=== PATIENT | female | born 1985 | race Caucasian/White ===

== ENCOUNTER 2017-05-10 18:44 | Inpatient (IN) | payer BC, OTHER ==
[~2017-05-10] VITALS: Ht 170.2 cm; Wt 94.2 kg
[~2017-05-10 18:44] MED LIST: MoRPHine SULFATE 4 MG/ML 1 ML CARP\\VIAL IV PRN; TRAMADOL HCL 50 MG TAB PO PRN
[2017-05-10 19:41] LABS: BASO % 0.3 %; BASO ABS # 0.06 K/uL (0-0.2); COMPLETE YES; EOS % 0.2 %; HEMATOCRIT 42.9 % (37-47); IG% 0.4 %; LYMPH % 20.2 %; LYMPH ABS # 4.59 K/uL (1.2-3.4); MEAN CELL VOLUME 87.9 fL (80-100); MEAN CORPUSCULAR HEMOGLOBIN 29.9 pg (25-34); NEUT % 73.9 %; PLATELET COUNT 492 K/uL (130-400); RED BLOOD COUNT 4.88 M/uL (4.2-5.4); WHITE BLOOD COUNT 22.67 K/uL (4.8-10.8)
[2017-05-10] MEDS ORDERED: IBUP-103 PO (19:42)
[2017-05-10] MEDS ORDERED: SODIENE PR (19:42)
[2017-05-10 19:45] LABS: URINE APPEARANCE CLEAR (CLEAR); URINE BILIRUBIN NEG (NEG); URINE COLOR YELLOW; URINE EPITHELIAL CELL AUTO >30 /lpf (0-5); URINE NITRITE NEG (NEG); URINE PH 6.5 (4.5-7.5); URINE SPECIFIC GRAVITY 1.017 (1.000-1.030); UROBILINOGEN NEG (NEG); ZZUR CULT IF INDIC CLEAN CATCH NO
[2017-05-10 19:47] LABS: MANUAL MICROSCOPIC REQUIRED? NO; REVIEW REQ? NO
[2017-05-10 19:55] LABS: BUN/CREATININE RATIO 13.5 (10-20); CALCIUM 9.5 mg/dl (8.5-10.1); CREATININE 0.86 mg/dl (0.60-1.20); POTASSIUM 3.8 mmol/L (3.5-5.1)
[2017-05-10 19:57] LABS: ALB/GLOB RATIO 1.1 (0.9-2)
[2017-05-10] MEDS ORDERED: OPTIRAY 320 IV PRN (20:00)
--- NOTE | 2017-05-10 20:30 | DIAGNOSTIC IMAGING REPORT ---
CT OF THE ABDOMEN AND PELVIS WITH CONTRAST CLINICAL HISTORY: Abdominal pain, constipation, leukocytosis. COMPARISON STUDY: None. TECHNIQUE: Following IV administration of 93 mL of Optiray-320, axial images of the abdomen and pelvis were obtained from the lung bases to the proximal femurs. Images were reviewed in the axial, sagittal, and coronal planes. IV contrast was administered without complication. A dose lowering technique was utilized adhering to the principles of ALARA. CT DOSE: 789.44 mGy.cm FINDINGS: No pneumatosis, free air or portal venous gas is present. The spleen is surgically absent. There is a gallstone within the gallbladder. There is no pericholecystic infiltration. The liver, adrenal glands and pancreas are normal. Note is made of a 4 mm calculus within the upper pole of the right kidney. There is mild left perinephric infiltration as well as minimal periureteral infiltration. Note is made of a 4 mm nonobstructing distal left ureteral calculus shown on image 425 of 506. There is no renal abscess. There is mild urothelial thickening of the left renal pelvis and ureter. There is no evidence for a bowel obstruction. The caliber and wall thickness of small and large bowel is normal. The appendix is not visualized on this exam but there is no right lower quadrant inflammation. The ovaries are not enlarged. No suspicious skeletal lesions are identified. IMPRESSION: 1. 4 mm distal left ureteral calculus. No hydronephrosis or hydroureter. Mild left perinephric and periureteral infiltration is likely related to the obstruction however a superimposed infectious process cannot be excluded. 2. Cholelithiasis. No evidence of acute cholecystitis by CT. 3. Nonvisualization of the appendix. 4. Status post splenectomy. Electronically signed by: Panchito Martin M.D. 05/10/2017 8:29 PM Dictated Date/Time: 05/10/2017 8:19 PM
[2017-05-10] MEDS ORDERED: CIPROFLOXACIN 400MG / 200ML D5W IV STA (21:07)
--- NOTE | 2017-05-10 22:43 | History and Physical ---
History & Physical Date & Time of Service: May 10, 2017 at 22:43 Chief Complaint: Abd Pain,Abnormal Xrays,Distended Bowels Primary Care Physician: No Doctor, Assigned History of Present Illness Source: patient, spouse The patient is a 32-year-old female who presents to the emergency department with her with complaint of severe left flank pain that began since the morning prior to arrival. She did have a similar set of symptoms last week, which resolved on their own. Her symptoms today have been more intense and been more persistent, have worsened after urination, inability to complete by 2 episodes of nausea and vomiting today. She also has a history of chronic constipation, for which she took a suppository without relief today. She had gone to urgent care today, was told that she was constipated, and was suggested to take MiraLAX. An x-ray was taken at urgent care, for which she was called later on in the day and told that her bowels were distended that she should go to the emergency department for assessment. She has a history of hereditary stress cytosis, which prompted a splenectomy, with no comp occasions related to platelets and that time. She denies any fevers or chills blood in urine or stool, lightheadedness, dizziness any recent travel or sick exposures. Past Medical/Surgical History Hereditary spherocytosis Left ureteral stone Pyelonephritis Constipation Status post splenectomy Cholelithiasis Hyperglycemia Family History Noncontributory Social History Smoking Status: Never Smoker Smokeless Tobacco Use: No Alcohol Use: none Drug Use: none Marital Status: Housing status: lives with family Occupational Status: employed Immunizations History of Influenza Vaccine: Unknown History of Tetanus Vaccine?: Yes History of Pneumococcal: No History of Hepatitis B Vaccine: Yes Hepatitis Immunization Date: May 11, 2017 (Unknown) Multi-Drug Resistant Organisms History of MDRO: No Allergies Coded Allergies: Cefaclor (Verified Allergy, Unknown, Unknown, 05/10/17) Home Medications Scheduled Ciprofloxacin Hcl (Cipro), 1 TAB PO BID Tamsulosin HCl (Tamsulosin HCl), 0.4 MG PO HS Scheduled PRN Ibuprofen Tab (Advil), 400-600 MG PO Q6H PRN for Pain Magnesium Hydroxide (Milk Of Magnesia), 30 ML PO DAILY PRN for Constipation Phenazopyridine HCl (Phenazopyridine HCl), 200 MG PO TID PRN for Burning with urination Sodium Phosphate/Biphosphate (Fleet Enema), 1 EA DE DAILY PRN for Constipation Tramadol HCl (Tramadol HCl), 50 MG PO Q4H PRN for Pain Review of Systems The patient denies chest pain, palpitations, shortness of breath, cough, lower extremity swelling, sore throat, fevers, chills, sweats, weight change, fatigue , pelvic pain, blood in urine or stool, dysuria, urinary frequency or urgency, lightheadedness, dizziness, headache, memory loss, rash, abnormal bruising or bleeding, imbalance, focal or generalized weakness, numbness or tingling in arms or legs, arthralgias or myalgias, neck pain, night sweats, or allergy symptoms. The review of systems is otherwise negative other than for that already noted above, and at least 10 systems have been reviewed. Physical Exam Vital Signs Date Time Temp Pulse Resp B/P (MAP) Pulse Ox O2 Delivery O2 Flow Rate FiO2 05/10/17 21:31 85 20 130/44 98 05/10/17 20:18 86 16 123/64 99 Room Air 05/10/17 18:47 36.7 86 18 139/98 96 Room Air The patient is awake, well-developed and adequately nourished, alert and oriented 3, normocephalic and atraumatic, lying in bed and in no acute distress. HEENT--PERRL, EOMI, mucous membranes and oropharynx dry. Neck--supple, no JVD or bruits, thyroid normal, trachea midline, no adenopathy. Heart--normal S1 and S2, no extra beats, no murmurs, rubs or gallops. Lungs--clear bilaterally with good air movement, no respiratory distress, no accessory muscle use. Abdomen--normal bowel sounds and soft, mild reducible right flank, nondistended , no hernias or masses, no organomegaly. Extremities--no cyanosis, clubbing or edema. There are good distal pulses b/l. Dermatologic--normal skin turgor, normal color, warm and dry, no abnormal lymph nodes, no rash. Neurologic--cranial nerves II through XII grossly intact, motor and sensory examination normal. Rheumatologic--normal range of motion, nontender, muscles and joints. Psychiatric--normal affect. Diagnostics Laboratory Results Results Past 24 Hours Test 05/10/17 19:15 Range/Units White Blood Count 22.67 4.8-10.8 K/uL Red Blood Count 4.88 4.2-5.4 M/uL Hemoglobin 14.6 12.0-16.0 g/dL Hematocrit 42.9 37-47 % Mean Corpuscular Volume 87.9 80-100 fL Mean Corpuscular Hemoglobin 29.9 25-34 pg Mean Corpuscular Hemoglobin Concent 34.0 32-36 g/dl Platelet Count 492 130-400 K/uL Mean Platelet Volume 9.0 7.4-10.4 fL Neutrophils (%) (Auto) 73.9 % Lymphocytes (%) (Auto) 20.2 % Monocytes (%) (Auto) 5.0 % Eosinophils (%) (Auto) 0.2 % Basophils (%) (Auto) 0.3 % Neutrophils # (Auto) 16.74 1.4-6.5 K/uL Lymphocytes # (Auto) 4.59 1.2-3.4 K/uL Monocytes # (Auto) 1.13 0.11-0.59 K/uL Eosinophils # (Auto) 0.05 0-0.5 K/uL Basophils # (Auto) 0.06 0-0.2 K/uL RDW Standard Deviation 46.8 36.4-46.3 fL RDW Coefficient of Variation 14.5 11.5-14.5 % Immature Granulocyte % (Auto) 0.4 % Immature Granulocyte # (Auto) 0.10 0.00-0.02 K/uL Urine Color YELLOW Urine Appearance CLEAR CLEAR Urine pH 6.5 4.5-7.5 Urine Specific [place] 1.017 1.000-1.030 Urine Protein TRACE NEG Urine Glucose (UA) NEG NEG Urine Ketones TRACE NEG Urine Occult Blood TRACE NEG Urine Nitrite NEG NEG Urine Bilirubin NEG NEG Urine Urobilinogen NEG NEG Urine Leukocyte Esterase NEG NEG Urine WBC (Auto) 1-5 0-5 /hpf Urine RBC (Auto) 0-4 0-4 /hpf Urine Hyaline Casts (Auto) 1-5 0-5 /lpf Urine Epithelial Cells (Auto) >30 0-5 /lpf Urine Bacteria (Auto) NEG NEG Urine Test NEG NEG Sodium Level 140 136-145 mmol/L Potassium Level 3.8 3.5-5.1 mmol/L Chloride Level 104 98-107 mmol/L Carbon Dioxide Level 29 21-32 mmol/L Anion Gap 7.0 3-11 mmol/L Blood Urea Nitrogen 12 7-18 mg/dl Creatinine 0.86 0.60-1.20 mg/dl Est Creatinine Clear Calc Drug Dose 110.7 ml/min Estimated GFR () 103.6 Estimated GFR (Non- 89.4 BUN/Creatinine Ratio 13.5 10-20 Random Glucose 115 70-99 mg/dl Calcium Level 9.5 8.5-10.1 mg/dl Total Bilirubin 0.8 0.2-1 mg/dl Aspartate Amino Transf (AST/SGOT) 12 15-37 U/L Alanine Aminotransferase (ALT/SGPT) 18 12-78 U/L Alkaline Phosphatase 77 45-117 U/L Total Protein 7.2 6.4-8.2 gm/dl Albumin 3.8 3.4-5.0 gm/dl Globulin 3.4 2.5-4.0 gm/dl Albumin/Globulin Ratio 1.1 0.9-2 Lipase 87 73-393 U/L Microbiology Results 05/10/17 Blood Culture, Received Pending 05/10/17 Blood Culture, Received Pending 05/10/17 Urine Culture, Received Pending Diagnostic Radiology Patient Name: GRACIA ALVAREZ Unit Number: [id number] Dictated: 05/10/172018 Transcribed: 05/10/172018 MIGUEL A Printed Date/Time: [~ rep prt dt]/[~ rep prt tm] [~ rep ct labl] - [~ rep ct ivnm] [facility] Radiology Department [place] [id number] Dictated: 05/10/172018 Transcribed: 05/10/172018 MIGUEL A Printed Date/Time: [~ rep prt dt]/[~ rep prt tm] [~ rep ct labl] - [~ rep ct ivnm] [~ rep ct add3]] CT OF THE ABDOMEN AND PELVIS WITH CONTRAST CLINICAL HISTORY: Abdominal pain, constipation, leukocytosis. COMPARISON STUDY: None. TECHNIQUE: Following IV administration of 93 mL of Optiray-320, axial images of the abdomen and pelvis were obtained from the lung bases to the proximal femurs. Images were reviewed in the axial, sagittal, and coronal planes. IV contrast was administered without complication. A dose lowering technique was utilized adhering to the principles of ALARA. CT DOSE: 789.44 mGy.cm FINDINGS: No pneumatosis, free air or portal venous gas is present. The spleen is surgically absent. There is a gallstone within the gallbladder. There is no pericholecystic infiltration. The liver, adrenal glands and pancreas are normal. Note is made of a 4 mm calculus within the upper pole of the right kidney. There is mild left perinephric infiltration as well as minimal periureteral infiltration. Note is made of a 4 mm nonobstructing distal left ureteral calculus shown on image 425 of 506. There is no renal abscess. There is mild urothelial thickening of the left renal pelvis and ureter. There is no evidence for a bowel obstruction. The caliber and wall thickness of small and large bowel is normal. The appendix is not visualized on this exam but there is no right lower quadrant inflammation. The ovaries are not enlarged. No suspicious skeletal lesions are identified. IMPRESSION: 1. 4 mm distal left ureteral calculus. No hydronephrosis or hydroureter. Mild left perinephric and periureteral infiltration is likely related to the obstruction however a superimposed infectious process cannot be excluded. 2. Cholelithiasis. No evidence of acute cholecystitis by CT. 3. Nonvisualization of the appendix. 4. Status post splenectomy. Electronically signed by: Panchito Martin M.D. 05/10/2017 8:29 PM Dictated Date/Time: 05/10/2017 8:19 PM The status of this report is Signed. Draft = Not yet reviewed or approved by Radiologist. Signed = Reviewed and approved by Radiologist. <AttendingPhy></AttendingPhy> <FamilyPhy>No Doctor, Assigned</FamilyPhy> < PrimaryPhy>No Doctor, Assigned</PrimaryPhy> <UnitNumber>[id number]</UnitNumber> <VisitNumber>[id number]</VisitNumber> <PatientName>GRACIA ALVAREZ</ PatientName> <DateOfBirth>1985</DateOfBirth> <Location>[facility]</Location> < ServiceDate>05/10/17</ServiceDate> <MNE>ESINDI</MNE> <OrderingPhy>Melissa Hartman PA-C</OrderingPhy> <OrderingPhyMNE>f rep ord dr esteves</OrderingPhyMNE> < DictatingPhyMNE>f rep dict dr esteves</DictatingPhyMNE> <CCListMNE>f rep ct mne</ CCListMNE> <AdmittingPhyMNE>f pt admit dr esteves</AdmittingPhyMNE> <AttendingPhyMNE >f pt attend dr esteves</AttendingPhyMNE> <ConsultingPhyMNE>f pt consult dr esteves</ConsultingPhyMNE> <FamilyPhyMNE>f pt fam dr esteves</FamilyPhyMNE> <OtherPhyMNE>f pt other dr esteves</OtherPhyMNE> < PrimaryPhyMNE>f pt prim care dr esteves</PrimaryPhyMNE> <ReferringPhyMNE>f pt referring dr esteves</ReferringPhyMNE> EKG EKG was not indicated and not performed Impression Assessment and Plan 1. 4 mm distal left ureteral calculus/mild left perinephric and periureteral infiltration/pyelonephritis--the patient will be admitted to the medical surgical floor. She'll be kept nothing by mouth after midnight except medications. Normal saline with KCl 20 mEq at 100 mils per hour. Repeat CBCD, BMP and magnesium levels in the a.m. Cipro 400 mg IV every 12 hours. Follow urine culture and sensitivities. Consult urology. Pain control with tramadol 50 mg by mouth every 6 hours for mild pain, hydrocodone/APAP 5/325 one by mouth every 6 hours for moderate pain, and morphine sulfate 4 mg IV every 2 hours when necessary severe pain. 2. Status post splenectomy--surgery performed for hereditary spherocytosis at approximately age 5. Patient reports to her knowledge she's never had any of the 3 recommended immunizations. We'll order immunizations for this admission: For Pneumococcus: Give PCV13 now, then give PPSV23 > or = 8 weeks after PCV13, then PPSCV23 every 5 years. For Meningococcus: Menactra or Menveo dose now, (Menveo preferred if given now with above), then repeat in 2 months, and then every 5 years. Trumenba or Bexsero for Group B. For Hib:Give now and every 5 years. Consult Infectious Disease to direct and follow. 3. Chronic constipation--IV fluids as noted above. Dulcolax suppository daily when necessary. 4. Hyperglycemia--likely a physiologic stress reaction. We'll check a hemoglobin A1c. 5. Nausea and vomiting--we'll place on Zofran 4 mg IV every 6 hours when necessary. Level of Care Med/Surg Advanced Directives Existing Advance Directive: No Existing Living Will: No Existing Power of Photogrammetric Surveyor: No Resuscitation Status FULL RESUSCITATION VTE Prophylaxis VTE Risk Assessment Done? Y/N: Yes Risk Level: Low Given or contraindicated: SCD's Social Service Consult None Apply
[2017-05-10] MEDS ORDERED: ACETAMINOPHEN 325 MG TAB PO PRN (22:45)
[2017-05-10] MEDS ORDERED: SOD PHOSPHATE/SOD BIPHOSPHATE ENEMA 132 ML BTL PR PRN (22:45)
[2017-05-10] MEDS ORDERED: ZOLPIDEM TARTRATE 5 MG TAB PO PRN (22:45)
[2017-05-10] MEDS ORDERED: ONDANSETRON INJ 2 MG/ML 2 ML VIAL IV PRN (22:45)
[2017-05-10 23:00] VITALS: BP 129/83; PULSE 81; TEMP 36.8; O2SAT 95; Ht 170.2 cm; Wt 94.2 kg
[2017-05-11] VITALS (10 sets, daily range): BP systolic 110–131; BP diastolic 72–84; PULSE 68–93; TEMP 36.4–37; O2SAT 92–100
--- NOTE | 2017-05-11 00:15 | EMERGENCY ROOM VISIT NOTE ---
History First contact with patient: 18:52 Chief Complaint: CONSTIPATION Stated Complaint: LEFT URETERAL STONE, PYELONEPHRITIS History of Present Illness The patient is a 32 year old female who presents to the Emergency Room with complaints of severe left back pain which occurred this morning. The patient states that she had similar symptoms last week. Her symptoms worsened after urination. She had 2 episodes of vomiting today. She states she felt like the pain may be due to constipation, as she has not had a normal bowel movement for "a long time." She uses a suppository without relief. She was seen at urgent care and told that she was constipated and should take MiraLAX. She states that they called her afterward and told her that her bowels were "distended" and she should go to the emergency department. The patient has a history of splenectomy secondary to hereditary spherocytosis. She denies any urinary symptoms, blood in her stools, chest pain or shortness of breath. She denies any fevers/chills. Review of Systems A complete 10 point review of systems was reviewed with the patient with pertinent positives and negatives as per history of present illness. All else were negative. Past Medical/Surgical History Medical Problems: (1) Left ureteral stone (2) Pyelonephritis Social History Smoking Status: Never Smoker Current/Historical Medications Scheduled PRN Ibuprofen Tab (Advil), 400-600 MG PO Q6H PRN for Pain Sodium Phosphate/Biphosphate (Fleet Enema), 1 EA ME DAILY PRN for Constipation Physical Exam Vital Signs Date Time Temp Pulse Resp B/P (MAP) Pulse Ox O2 Delivery O2 Flow Rate FiO2 05/10/17 21:31 85 20 130/44 98 05/10/17 20:18 86 16 123/64 99 Room Air 05/10/17 18:47 36.7 86 18 139/98 96 Room Air Pain Rating (0-10): 0 Physical Exam VITALS: Vitals are noted on the nurse's note and reviewed by myself. Vital signs stable. GENERAL: This is a 32-year-old female, in no acute distress, nondiaphoretic, well-developed well-nourished. HEART: Regular rate and rhythm without murmurs gallops or rubs. LUNGS: Clear to auscultation bilaterally without wheezes, rales or rhonchi. ABDOMEN: Positive bowel sounds x 4. Soft, no tenderness to palpation. NEURO: Patient was alert and oriented to person place and time. Medical Decision & Procedures ER Provider Diagnostic Interpretation: CT OF THE ABDOMEN AND PELVIS WITH CONTRAST IMPRESSION: 1. 4 mm distal left ureteral calculus. No hydronephrosis or hydroureter. Mild left perinephric and periureteral infiltration is likely related to the obstruction however a superimposed infectious process cannot be excluded. 2. Cholelithiasis. No evidence of acute cholecystitis by CT. 3. Nonvisualization of the appendix. 4. Status post splenectomy. Laboratory Results 05/10/17 19:15 Red Blood Count 4.88, Mean Corpuscular Volume 87.9, Mean Corpuscular Hemoglobin 29.9, Mean Corpuscular Hemoglobin Concent 34.0, Mean Platelet Volume 9.0, Neutrophils (%) (Auto) 73.9, Lymphocytes (%) (Auto) 20.2, Monocytes (%) (Auto) 5.0, Eosinophils (%) (Auto) 0.2, Basophils (%) (Auto) 0.3, Neutrophils # (Auto) 16.74, Lymphocytes # (Auto) 4.59, Monocytes # (Auto) 1.13, Eosinophils # (Auto) 0.05, Basophils # (Auto) 0.06 05/10/17 19:15 Test 05/10/17 19:15 White Blood Count 22.67 K/uL (4.8-10.8) Red Blood Count 4.88 M/uL (4.2-5.4) Hemoglobin 14.6 g/dL (12.0-16.0) Hematocrit 42.9 % (37-47) Mean Corpuscular Volume 87.9 fL (80-100) Mean Corpuscular Hemoglobin 29.9 pg (25-34) Mean Corpuscular Hemoglobin Concent 34.0 g/dl (32-36) Platelet Count 492 K/uL (130-400) Mean Platelet Volume 9.0 fL (7.4-10.4) Neutrophils (%) (Auto) 73.9 % Lymphocytes (%) (Auto) 20.2 % Monocytes (%) (Auto) 5.0 % Eosinophils (%) (Auto) 0.2 % Basophils (%) (Auto) 0.3 % Neutrophils # (Auto) 16.74 K/uL (1.4-6.5) Lymphocytes # (Auto) 4.59 K/uL (1.2-3.4) Monocytes # (Auto) 1.13 K/uL (0.11-0.59) Eosinophils # (Auto) 0.05 K/uL (0-0.5) Basophils # (Auto) 0.06 K/uL (0-0.2) RDW Standard Deviation 46.8 fL (36.4-46.3) RDW Coefficient of Variation 14.5 % (11.5-14.5) Immature Granulocyte % (Auto) 0.4 % Immature Granulocyte # (Auto) 0.10 K/uL (0.00-0.02) Urine Color YELLOW Urine Appearance CLEAR (CLEAR) Urine pH 6.5 (4.5-7.5) Urine Specific [place] 1.017 (1.000-1.030) Urine Protein TRACE (NEG) Urine Glucose (UA) NEG (NEG) Urine Ketones TRACE (NEG) Urine Occult Blood TRACE (NEG) Urine Nitrite NEG (NEG) Urine Bilirubin NEG (NEG) Urine Urobilinogen NEG (NEG) Urine Leukocyte Esterase NEG (NEG) Urine WBC (Auto) 1-5 /hpf (0-5) Urine RBC (Auto) 0-4 /hpf (0-4) Urine Hyaline Casts (Auto) 1-5 /lpf (0-5) Urine Epithelial Cells (Auto) >30 /lpf (0-5) Urine Bacteria (Auto) NEG (NEG) Urine Test NEG (NEG) Anion Gap 7.0 mmol/L (3-11) Est Creatinine Clear Calc Drug Dose 110.7 ml/min Estimated GFR () 103.6 Estimated GFR (Non- 89.4 BUN/Creatinine Ratio 13.5 (10-20) Calcium Level 9.5 mg/dl (8.5-10.1) Total Bilirubin 0.8 mg/dl (0.2-1) Aspartate Amino Transf (AST/SGOT) 12 U/L (15-37) Alanine Aminotransferase (ALT/SGPT) 18 U/L (12-78) Alkaline Phosphatase 77 U/L (45-117) Total Protein 7.2 gm/dl (6.4-8.2) Albumin 3.8 gm/dl (3.4-5.0) Globulin 3.4 gm/dl (2.5-4.0) Albumin/Globulin Ratio 1.1 (0.9-2) Lipase 87 U/L (73-393) Medications Administered Medications (Trade) Dose Ordered Sig/Maura Route Start Time Stop Time Status Last Admin Dose Admin Ciprofloxacin/ Dextrose (Cipro / D5W) 400 mg NOW STAT IV 05/10/17 21:07 05/10/17 21:15 DC 05/10/17 21:29 400 MG ED Course The patient was evaluated as above. Labs were drawn and IV access was obtained. Patient was found to have a leukocytosis of greater than 22,000. For this reason, CT of the abdomen and pelvis was performed and read by radiology as above. Patient was reevaluated and findings were discussed. She will be admitted for further care. She was given a dose of ciprofloxacin. Case was discussed with the [facility] hospitalist, Dr Lawton. They agreed to evaluate the patient for admission. Medical Decision Differential diagnosis includes kidney stone, constipation, bowel obstruction, colitis, pancreatitis, cholecystitis, among others. The patient is a 32-year-old female who presents today complaining of back pain and constipation. Records of the patient's visit at urgent care were reviewed. She had a KUB performed which showed a distended transverse colon and moderate to large stool burden. Labs today revealed a leukocytosis of 22,000. For this reason, I was concerned about other acute process within the abdomen and pelvis. CT was performed and showed a left ureteral calculus. There were findings of possible superimposed infection, and given the patient's leukocytosis and splenectomy she will need to be admitted for this. Urinalysis was not suggestive of infection but will be sent for culture. She was given a dose of ciprofloxacin in the emergency department. She had no pain throughout my examination. She remained stable throughout her stay in the emergency department. Medication Reconcilliation Current Medication List: was personally reviewed by de Blood Pressure Screening Patient's blood pressure: Normal blood pressure Impression Primary Impression: Left ureteral stone Additional Impression: Pyelonephritis Departure Information Dispostion Still a Patient Condition FAIR Referrals No Doctor, Assigned (PCP) Forms HOME CARE DOCUMENTATION FORM, IMPORTANT VISIT INFORMATION Patient Instructions [facility] Problem Qualifiers
[2017-05-11] MEDS ORDERED: BISACODYL 10 MG SUPP PR PRN (01:00)
[2017-05-11] MEDS ORDERED: VANCOMYCIN INJ 2,300 MG in SODIUM CHLORIDE 0.9% 500ML 500 ML IV ONE (01:45)
[2017-05-11] MEDS ORDERED: VANCOMYCIN CONSULT ACTIVE PRN (01:45)
[2017-05-11 06:34] LABS: BASO % 0.3 %; BASO ABS # 0.05 K/uL (0-0.2); COMPLETE YES; EOS % 0.9 %; HEMATOCRIT 40.7 % (37-47); IG% 0.5 %; LYMPH % 27.7 %; MEAN CELL VOLUME 89.8 fL (80-100); MEAN CORPUSCULAR HEMOGLOBIN 29.6 pg (25-34); MEAN CORPUSCULAR HGB CONC 32.9 g/dl (32-36); MEAN PLATELET VOLUME 9.3 fL (7.4-10.4); NEUT % 64.6 %; PLATELET COUNT 480 K/uL (130-400); RED BLOOD COUNT 4.53 M/uL (4.2-5.4); WHITE BLOOD COUNT 16.97 K/uL (4.8-10.8)
[2017-05-11 06:43] LABS: ESTIMATED AVERAGE GLUCOSE 103 mg/dl; HA1C FLAG Normal (Normal)
[2017-05-11 07:08] LABS: BUN/CREATININE RATIO 22.6 (10-20); CALCIUM 9.2 mg/dl (8.5-10.1); CREATININE 0.66 mg/dl (0.60-1.20); POTASSIUM 3.6 mmol/L (3.5-5.1)
--- NOTE | 2017-05-11 07:41 | Urology Consultation ---
History General Date of Service: May 11, 2017. Chief Complaint: left ureteral stone Primary Care Physician: No Doctor, Assigned Pt seen a urologist before?: No History of Present Illness 32 yo female presents to [facility] with c/o left back and flank pain with n/v. The pain started 2 weeks ago, but became more severe yesterday. CT scan showing a 4mm distal left ureteral stone. The pt has no previous hx of stones. Pain is currently controlled. Denies n/v, dysuria, or hematuria as well. She is afebrile. White count is 16.97. 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 Cr is normal at 0.66. Blood and urine cultures pending. Imaging Imaging: CT Laboratory Last 24 Hours Test 05/10/17 19:15 05/11/17 05:55 White Blood Count 22.67 K/uL 16.97 K/uL Red Blood Count 4.88 M/uL 4.53 M/uL Hemoglobin 14.6 g/dL 13.4 g/dL Hematocrit 42.9 % 40.7 % Mean Corpuscular Volume 87.9 fL 89.8 fL Mean Corpuscular Hemoglobin 29.9 pg 29.6 pg Mean Corpuscular Hemoglobin Concent 34.0 g/dl 32.9 g/dl Platelet Count 492 K/uL 480 K/uL Mean Platelet Volume 9.0 fL 9.3 fL Neutrophils (%) (Auto) 73.9 % 64.6 % Lymphocytes (%) (Auto) 20.2 % 27.7 % Monocytes (%) (Auto) 5.0 % 6.0 % Eosinophils (%) (Auto) 0.2 % 0.9 % Basophils (%) (Auto) 0.3 % 0.3 % Neutrophils # (Auto) 16.74 K/uL 10.97 K/uL Lymphocytes # (Auto) 4.59 K/uL 4.70 K/uL Monocytes # (Auto) 1.13 K/uL 1.02 K/uL Eosinophils # (Auto) 0.05 K/uL 0.15 K/uL Basophils # (Auto) 0.06 K/uL 0.05 K/uL RDW Standard Deviation 46.8 fL 48.8 fL RDW Coefficient of Variation 14.5 % 14.7 % Immature Granulocyte % (Auto) 0.4 % 0.5 % Immature Granulocyte # (Auto) 0.10 K/uL 0.08 K/uL Urine Color YELLOW Urine Appearance CLEAR Urine pH 6.5 Urine Specific [place] 1.017 Urine Protein TRACE Urine Glucose (UA) NEG Urine Ketones TRACE Urine Occult Blood TRACE Urine Nitrite NEG Urine Bilirubin NEG Urine Urobilinogen NEG Urine Leukocyte Esterase NEG Urine WBC (Auto) 1-5 /hpf Urine RBC (Auto) 0-4 /hpf Urine Hyaline Casts (Auto) 1-5 /lpf Urine Epithelial Cells (Auto) >30 /lpf Urine Bacteria (Auto) NEG Urine Test NEG Sodium Level 140 mmol/L 141 mmol/L Potassium Level 3.8 mmol/L 3.6 mmol/L Chloride Level 104 mmol/L 107 mmol/L Carbon Dioxide Level 29 mmol/L 27 mmol/L Anion Gap 7.0 mmol/L 7.0 mmol/L Blood Urea Nitrogen 12 mg/dl 15 mg/dl Creatinine 0.86 mg/dl 0.66 mg/dl Est Creatinine Clear Calc Drug Dose 110.7 ml/min 144.2 ml/min Estimated GFR () 103.6 135.5 Estimated GFR (Non- 89.4 116.9 BUN/Creatinine Ratio 13.5 22.6 Random Glucose 115 mg/dl 124 mg/dl Calcium Level 9.5 mg/dl 9.2 mg/dl Total Bilirubin 0.8 mg/dl Aspartate Amino Transf (AST/SGOT) 12 U/L Alanine Aminotransferase (ALT/SGPT) 18 U/L Alkaline Phosphatase 77 U/L Total Protein 7.2 gm/dl Albumin 3.8 gm/dl Globulin 3.4 gm/dl Albumin/Globulin Ratio 1.1 Lipase 87 U/L Estimated Average Glucose 103 mg/dl Hemoglobin A1c 5.2 % Magnesium Level 2.0 mg/dl Past History other (hereditary spherocytosis, constipation, cholelithiasis, hyperglycemia) Past Surgical History: splenectomy Family History non-contributory Social History Hx Tobacco Use In Past Year?: No Smoking: non-smoker Alcohol: never Drug use: none Marital status: Housing status: lives with family Occupation status: employed Immunizations History of Influenza Vaccine: Unknown History of Tetanus Vaccine?: Yes History of Pneumococcal: No History of Hepatitis B Vaccine: Yes Hepatitis Immunization Date: May 11, 2017 (Unknown) History of MDRO No Allergies Coded Allergies: Cefaclor (Verified Allergy, Unknown, Unknown, 05/10/17) Medications Home Medications: Home Meds and Scripts Medications Dose Route/Sig Max Daily Dose Days Date Category Fleet Enema (Sodium Phosphate/Biphosphate) Theresa 1 Ea ND DAILY PRN 05/10/17 Reported Advil (Ibuprofen) 200 Mg Tab 400-600 Mg PO Q6H PRN 05/10/17 Reported Inpatient Medications: Current Inpatient Medications Medications (Trade) Dose Ordered Sig/Maura Route Start Time Stop Time Status Last Admin Dose Admin Ioversol (Optiray 320) 100 ml UD PRN IV 05/10/17 20:00 05/14/17 19:59 Acetaminophen (Tylenol Tab) 650 mg Q4H PRN PO 05/10/17 22:45 06/09/17 22:44 Zolpidem Tartrate (Ambien Tab) 5 mg HSZ PRN PO 05/10/17 22:45 06/09/17 22:44 Ondansetron HCl (Zofran Inj) 4 mg Q6H PRN IV 05/10/17 22:45 06/09/17 22:44 Acetaminophen/ Hydrocodone Bitart (Hawley 5/325 Tab) 1 tab Q6H PRN PO 05/10/17 03:30 05/24/17 03:29 Morphine Sulfate (MoRPHine SULFATE INJ) 4 mg Q2H PRN IV 05/10/17 03:30 05/24/17 03:29 Tramadol HCl (Ultram Tab) 50 mg Q4H PRN PO 05/10/17 03:30 06/09/17 03:29 Sodium Biphosphate/ Sodium Phosphate (Fleet Enema) 10 ml DAILY PRN ND 05/10/17 22:45 06/09/17 22:44 Ciprofloxacin/ Dextrose 400 mg/ Prmx 200 ml @ 100 mls/hr Q12@0800,1999 IV 05/11/17 08:00 05/20/17 07:59 Bisacodyl (Dulcolax Supp) 10 mg DAILY PRN ND 05/11/17 01:00 06/10/17 00:59 Vancomycin HCl (Consult) 1 ea UD PRN N/A 05/11/17 01:45 06/10/17 01:44 Review of Systems Review of Systems Constitutional: No fever, No chills Eyes: No double vision Neurological: No dizzy Endocrine: No excessive thirst Gastrointestinal: + constipation, No abdominal pain, No nausea, No vomiting Cardiovascular: No chest pain Respiratory: No shortness of breath Skin: No rash Musculoskeletal: + back pain (left low back ) Female : No painful urination, No blood in urine Physical Exam Vital Signs: Vital Signs Past 12 Hours Date Time Temp Pulse Resp B/P (MAP) Pulse Ox O2 Delivery O2 Flow Rate FiO2 05/10/17 23:00 36.8 81 16 129/83 95 Room Air 05/10/17 23:00 95 Room Air 05/10/17 23:00 36.8 81 16 129/83 (98) 95 Room Air 05/10/17 22:46 83 20 125/69 96 Room Air 05/10/17 21:31 85 20 130/44 98 05/10/17 20:18 86 16 123/64 99 Room Air Physical Exam: General Appearance: no apparent distress Eyes: bilateral eyes normal inspection ENT: hearing grossly normal Neck: no JVD Respiratory/Chest: no respiratory distress, no accessory muscle use Cardiovascular: no JVD Extremities: normal inspection Neurologic/Psychiatric: alert, normal mood/affect, oriented x 3 Skin: normal color Assessment & Plan Assessment & Plan Treatment Planned: ureteroscopy w/ laser, cystoscopy w/ stent A/P: 4mm distal left ureteral stone AFVSS. Tx options discussed with the pt today have included a trial of passage with MET vs cystoscopy with left ureteral stent placement and possible left ureteroscopy and laser lithotripsy. She prefers left URS/LL at this time. Risks and benefits of the procedure discussed with the pt. All questions answered. Pt agrees to the procedure at this time. Consent obtained. Will obtain a pre-op chest x-ray and EKG. Cultures pending. Continue Cipro. Hopeful for d/c home tomorrow if doing well. Will arrange for outpatient f/u. Thanks for the consult. Will continue to follow along with primary service at this time.
[2017-05-11] MEDS ORDERED: PHENAZOPYRIDINE HCL 200 MG TAB PO PRN (07:45)
--- NOTE | 2017-05-11 08:38 | DIAGNOSTIC IMAGING REPORT ---
CHEST 2 VIEWS ROUTINE CLINICAL HISTORY: pre-op preoperative evaluation COMPARISON STUDY: No previous studies for comparison. FINDINGS: The bones soft tissues and hemidiaphragms are normal. The cardiomediastinal silhouette is normal. The lungs are clear. The pulmonary vasculature is normal. IMPRESSION: Negative chest. The above report was generated using voice recognition software. It may contain grammatical, syntax or spelling errors. Electronically signed by: Yousif Woodson M.D. 05/11/2017 8:37 AM Dictated Date/Time: 05/11/2017 8:37 AM
--- NOTE | 2017-05-11 08:40 | DIAGNOSTIC IMAGING REPORT ---
KUB CLINICAL HISTORY: PRE-OP; LEFT URETERAL STONE nephrocalcinosis COMPARISON STUDY: CT 05/10/2017 FINDINGS: Possible small distal left ureteral calculus. If present this is at the left ureterovesical junction. No additional calcifications. Nonobstructive bowel pattern. IMPRESSION: Probable calcification left ureteral vesicle junction. The above report was generated using voice recognition software. It may contain grammatical, syntax or spelling errors. Electronically signed by: Yousif Woodson M.D. 05/11/2017 8:39 AM Dictated Date/Time: 05/11/2017 8:37 AM
[2017-05-11] MEDS: CIPROFLOXACIN / D5W 400 MG in PREMIXED IN D5W 200 ML IV SCH ×2 (09:01→19:48)
[2017-05-11] MEDS ORDERED: VANCOMYCIN INJ 1,250 MG in SODIUM CHLORIDE 0.9% 250ML 250 ML IV SCH (10:00)
[2017-05-11] MEDS ORDERED: FENTANYL CITRATE INJ 50 MCG/1 ML 2 ML VIAL ONE ×2 (10:25→12:39)
[2017-05-11] MEDS ORDERED: MIDAZOLAM HCL 1 MG/ML 2ML VIAL ONE (10:25)
[2017-05-11] MEDS ORDERED: PROMETHAZINE HCL INJ 12.5 MG in SODIUM CHLORIDE 0.9% 50ML 50 ML IV PRN (11:00)
[2017-05-11] MEDS ORDERED: ONDANSETRON INJ 2 MG/ML 2 ML VIAL IV PRN (11:00)
[2017-05-11] MEDS ORDERED: HYDROmorphone INJ 1 MG/ML SYR IV PRN (11:00)
[2017-05-11] MEDS ORDERED: FENTANYL CITRATE INJ 50 MCG/1 ML 2 ML VIAL IV PRN (11:00)
[2017-05-11] MEDS ORDERED: EpHEDrine SULFATE INJ 50 MG/ML AMP IV PRN (11:00)
[2017-05-11] MEDS ORDERED: ATROPINE SULFATE 0.1 MG/ML 5ML SYR IV PRN (11:00)
[2017-05-11] MEDS ORDERED: CONRAY 30% 150ML BOTTLE ONE (11:51)
[2017-05-11] MEDS ORDERED: ONDANSETRON INJ 2 MG/ML 2 ML VIAL ONE (12:22)
[2017-05-11] MEDS ORDERED: PROPOFOL IV EMULSION 10 MG/ML 20 ML VIAL IV ONE (12:22)
[2017-05-11] MEDS ORDERED: LIDOCAINE HCL 2% 2 ML VIAL (20MG/ML) ONE (12:22)
[2017-05-11] MEDS ORDERED: DEXAMETHASONE SOD INJ 4 MG/ML VIAL ONE (12:22)
--- NOTE | 2017-05-11 13:01 | [facility] Post Operative Brief Note ---
Immediate Operative Summary Operative Date May 11, 2017. Pre-Operative Diagnosis Left distal ureteral stone Post-Operative Diagnosis Left distal ureteral stone Procedure(s) Performed Cystoscopy, Left Ureteroscopy, Laser Lithotripsy, Left Ureteral Stent Placement rianna dilation of ureteral stricture Surgeon Dr. Membreno Casting Machine Set Up Operator Surgeon(s) none Estimated Blood Loss 0 cc Findings distal stone above ureteral stricture Specimens A: Left ureteral stone for chemical analysis Drains 5 by 24 stent
--- NOTE | 2017-05-11 13:06 | Progress Note ---
Subjective Date of Service: May 11, 2017. Subjective Pt evaluation today including: conversation w/ patient, chart review, lab review, review of studies Problem List pt seen prio to ureteroscopy and options including trial of passage and eswl discussed Objective Vital Signs Date Time Temp Pulse Resp B/P (MAP) Pulse Ox O2 Delivery O2 Flow Rate FiO2 05/11/17 11:08 36.8 79 16 130/82 (98) 98 Room Air 05/11/17 07:33 36.9 68 19 110/73 (85) 97 Room Air 05/10/17 23:00 36.8 81 16 129/83 95 Room Air 05/10/17 23:00 95 Room Air 05/10/17 23:00 36.8 81 16 129/83 (98) 95 Room Air 05/10/17 22:46 83 20 125/69 96 Room Air 05/10/17 21:31 85 20 130/44 98 05/10/17 20:18 86 16 123/64 99 Room Air 05/10/17 18:47 36.7 86 18 139/98 96 Room Air Laboratory Results Last 24 Hours Test 05/10/17 19:15 05/11/17 05:55 White Blood Count 22.67 K/uL 16.97 K/uL Red Blood Count 4.88 M/uL 4.53 M/uL Hemoglobin 14.6 g/dL 13.4 g/dL Hematocrit 42.9 % 40.7 % Mean Corpuscular Volume 87.9 fL 89.8 fL Mean Corpuscular Hemoglobin 29.9 pg 29.6 pg Mean Corpuscular Hemoglobin Concent 34.0 g/dl 32.9 g/dl Platelet Count 492 K/uL 480 K/uL Mean Platelet Volume 9.0 fL 9.3 fL Neutrophils (%) (Auto) 73.9 % 64.6 % Lymphocytes (%) (Auto) 20.2 % 27.7 % Monocytes (%) (Auto) 5.0 % 6.0 % Eosinophils (%) (Auto) 0.2 % 0.9 % Basophils (%) (Auto) 0.3 % 0.3 % Neutrophils # (Auto) 16.74 K/uL 10.97 K/uL Lymphocytes # (Auto) 4.59 K/uL 4.70 K/uL Monocytes # (Auto) 1.13 K/uL 1.02 K/uL Eosinophils # (Auto) 0.05 K/uL 0.15 K/uL Basophils # (Auto) 0.06 K/uL 0.05 K/uL RDW Standard Deviation 46.8 fL 48.8 fL RDW Coefficient of Variation 14.5 % 14.7 % Immature Granulocyte % (Auto) 0.4 % 0.5 % Immature Granulocyte # (Auto) 0.10 K/uL 0.08 K/uL Urine Color YELLOW Urine Appearance CLEAR Urine pH 6.5 Urine Specific [place] 1.017 Urine Protein TRACE Urine Glucose (UA) NEG Urine Ketones TRACE Urine Occult Blood TRACE Urine Nitrite NEG Urine Bilirubin NEG Urine Urobilinogen NEG Urine Leukocyte Esterase NEG Urine WBC (Auto) 1-5 /hpf Urine RBC (Auto) 0-4 /hpf Urine Hyaline Casts (Auto) 1-5 /lpf Urine Epithelial Cells (Auto) >30 /lpf Urine Bacteria (Auto) NEG Urine Test NEG Sodium Level 140 mmol/L 141 mmol/L Potassium Level 3.8 mmol/L 3.6 mmol/L Chloride Level 104 mmol/L 107 mmol/L Carbon Dioxide Level 29 mmol/L 27 mmol/L Anion Gap 7.0 mmol/L 7.0 mmol/L Blood Urea Nitrogen 12 mg/dl 15 mg/dl Creatinine 0.86 mg/dl 0.66 mg/dl Est Creatinine Clear Calc Drug Dose 110.7 ml/min 144.2 ml/min Estimated GFR () 103.6 135.5 Estimated GFR (Non- 89.4 116.9 BUN/Creatinine Ratio 13.5 22.6 Random Glucose 115 mg/dl 124 mg/dl Calcium Level 9.5 mg/dl 9.2 mg/dl Total Bilirubin 0.8 mg/dl Aspartate Amino Transf (AST/SGOT) 12 U/L Alanine Aminotransferase (ALT/SGPT) 18 U/L Alkaline Phosphatase 77 U/L Total Protein 7.2 gm/dl Albumin 3.8 gm/dl Globulin 3.4 gm/dl Albumin/Globulin Ratio 1.1 Lipase 87 U/L Estimated Average Glucose 103 mg/dl Hemoglobin A1c 5.2 % Magnesium Level 2.0 mg/dl Assessment and Plan pt had l ureteroscopy and laser litho with l stent she is ok to go later today if her pain is controlled will order mom for constipation f/u 7 to 10 days for stent removal
--- NOTE | 2017-05-11 13:18 | DIAGNOSTIC IMAGING REPORT ---
RETROGRADE INCLUDES KUB CLINICAL HISTORY: 32 years-old Female presenting with LT CYSTO/LASER. TECHNIQUE: 3 fluoroscopic spot image(s) obtained as part of intraoperative procedure. COMPARISON: Plain radiograph of the abdomen from 05/11/[address] from 05/10/2017. FINDINGS/IMPRESSION: A guidewire courses along the left ureter. Subsequently a ureteral stent was placed. Please see surgical report for further details. Fluoroscopy dosage (mGy): Not available. Fluoroscopy time: 52 seconds. Number of fluoroscopic spot images: 3. Electronically signed by: Abdoulaye Oneal M.D. 05/11/2017 1:17 PM Dictated Date/Time: 05/11/2017 1:15 PM
--- NOTE | 2017-05-11 13:57 | Anesthesiology Progress Note ---
Anesthesia Post Op Note Date & Time May 11, 2017 at 13:57 Vital Signs Pain Intensity: 0 Vital Signs Past 12 Hours Date Time Temp Pulse Resp B/P (MAP) Pulse Ox O2 Delivery O2 Flow Rate FiO2 05/11/17 13:28 36.5 77 16 134/76 (85) 100 Nasal Cannula 2 05/11/17 13:27 74 12 05/11/17 13:27 73 12 100 05/11/17 13:26 132/74 05/11/17 13:22 77 11 05/11/17 13:22 77 11 100 05/11/17 13:21 128/78 05/11/17 13:17 75 11 05/11/17 13:17 78 11 100 05/11/17 13:16 125/75 05/11/17 13:12 71 13 05/11/17 13:12 72 13 100 05/11/17 13:11 133/77 05/11/17 13:08 134/77 05/11/17 13:07 86 8 100 05/11/17 13:07 85 8 05/11/17 13:06 151/136 05/11/17 13:02 80 8 100 05/11/17 13:02 79 8 05/11/17 13:01 127/78 05/11/17 12:58 129/72 05/11/17 12:57 37.0 83 16 129/72 100 Mask 10 05/11/17 12:57 79 10 100 05/11/17 12:57 81 10 05/11/17 11:08 36.8 79 16 130/82 (98) 98 Room Air 05/11/17 07:33 36.9 68 19 110/73 (85) 97 Room Air Notes Mental Status: alert / awake / arousable, participated in evaluation Pt Amnestic to Procedure: Yes Nausea / Vomiting: adequately controlled Pain: adequately controlled Airway Patency, RR, SpO2: stable & adequate BP & HR: stable & adequate Hydration State: stable & adequate Anesthetic Complications: no major complications apparent
--- NOTE | 2017-05-11 13:57 | OPERATIVE REPORT ---
DATE OF OPERATION: 05/11/2017 PREOPERATIVE DIAGNOSIS: Distal left ureteral stone. POSTOPERATIVE DIAGNOSIS: Same. PROCEDURES PERFORMED: Left ureteroscopy, balloon dilation of distal left ureteral stone, laser lithotripsy, and left stone removal. SURGEON: Karthikeyan Membreno MD INDICATIONS FOR PROCEDURE: She was given the option of trial of passage versus discharge her for lithotripsy versus stent placement and she chose to have ureteroscopy. I discussed the risks and benefits. She agreed to proceed. DESCRIPTION OF THE PROCEDURE: She was taken to the cysto suite, where general anesthesia was administered. She had Venodyne stockings given. She was given antibiotics preoperatively. She was placed in the dorsal lithotomy position and prepped and draped in the usual sterile fashion. A 22-Peruvian cystoscope was passed per urethra and I was able to pass a Dual-Flex guidewire beyond the stone through a 5-Peruvian open-ended catheter. Once I could not advance the open-ended catheter easily beyond the stone as it was more impacted, I was able to remove the cystoscope and leave the wire there in place and this appeared to be up in the kidney. I was able to pass the scope up to the stone, but I could not pump the stone, migrated somewhat proximally, and I could not get up to the stone at that point. There was smaller tear in the ureter as I tried to advance the scope. So I removed the scope, replaced the cystoscope, passed a 15 atmosphere 4-Peruvian balloon over the guidewire that was left in place and the balloon dilated the distal ureter to 10 atmospheres, which under fluoroscopy fully dilated the ureter. There initially was some wasting in the area of the stricture. After 2 minutes, the balloon was deflated. It was removed coaxially leaving the stone, safety wire in place, the ureteroscope was replaced and went to the stone and using settings at 18 and 6, the dusting settings, the stone was fragmented until it was broken into pieces. A 3-prong grasper was then used to grasp the 2 largest pieces. There was 1 smaller piece that appeared to have easily passed. At this point, a 5-Peruvian 24-cm stent was passed. The bladder was emptied and the patient was transferred to the recovery room in stable condition. I attest to the content of the Intraoperative Record and any orders documented therein. Any exceptions are noted below. NICOLASD
[2017-05-11] MEDS ORDERED: CIPR-255 PO (14:46)
[2017-05-11] MEDS ORDERED: MOML PO (14:46)
[2017-05-11] MEDS ORDERED: PHEN-1043 PO (14:46)
[2017-05-11] MEDS ORDERED: FLM4 PO (14:46)
--- NOTE | 2017-05-11 15:03 | Discharge Instructions ---
Discharge Instructions Date of Service May 11, 2017. Admission Reason for Admission: Left Ureteral Stone, Pyelonephritis Discharge Discharge Diagnosis / Problem: Left ureteral stone, pyelonephritis Discharge Goals Goal(s): Decrease discomfort, Improve function, Diagnostic testing, Therapeutic intervention Activity Recommendations Activity Limitations: resume your previous activity (as tolerated) . Instructions / Follow-Up Instructions / Follow-Up You were admitted to the hospital with left flank pain, nausea, and vomiting. You were found to have a kidney stone in the left ureter, which connects the kidneys to the bladder. You were also found to have an elevated white blood cell count indicative of an infection. You were treated with antibiotics and medication to help you pass the stone. Ultimately you underwent a cystoscopy and lithotripsy to break up and remove the stone fragments. A stent was placed in the ureter, which you will need to have removed as an outpatient. Recommendations: *Avoid heavy lifting or strenuous activity. Please gradually increase activity as tolerated. For further activity recommendations, please await instructions from urology at your follow up. Medications: *Please take ciprofloxacin 500 mg by mouth twice a day for the next 6 days. This is an antibiotic with a 7 day course; the first day was completed in the hospital. *You may take Pyridium (phenazopyridine) 200 mg by mouth three times a day as needed for pain/burning with urination. *Please take Flomax (tamsulosin) 0.4 mg by mouth daily until you follow up with urology. *You may take milk of magnesia daily as needed for constipation. You may also take over the counter stool softeners or laxatives of your choice. * You may take over the counter ibuprofen or Tylenol for pain. Please take as directed and do not exceed daily limits. Follow up: *You will be scheduled to follow up with your primary care provider in 1 week regarding your hospital stay. *You will follow up with urology (Dr. Membreno) in 7-10 days to remove the stent. Please seek medical attention if you experience fevers, chills, sweats, dizziness/lightheadedness, loss of consciousness, chest pain, shortness of breath, nausea, vomiting, recurrence of flank/abdominal pain, numbness or tingling. Current Hospital Diet Patient's current hospital diet: Regular Diet Discharge Diet Recommended Diet: Regular Diet Procedures Procedures Performed: Cystoscopy, Left Ureteroscopy, Laser Lithotripsy, Left Ureteral Stent Placement ballon dilation of ureteral stricture Pending Studies Studies pending at discharge: yes List of pending studies: Blood cultures Laboratory Results Hemoglobin A1c Test 05/11/17 05:55 Range/Units Estimated Average Glucose 103 mg/dl Hemoglobin A1c 5.2 4.5-5.6 % Medical Emergencies . Who to Call and When: Medical Emergencies: If at any time you feel your situation is an emergency, please call 911 immediately. . Non-Emergent Contact Non-Emergency issues call your: Primary Care Provider, Urologist . Past History Medical & Surgical History: (1) Left ureteral stone (2) Pyelonephritis . "Provider Documentation" section prepared by Genet Joseph. . VTE Core Measure Inpt VTE Proph given/why not?: SCD's
--- NOTE | 2017-05-11 15:15 | Discharge Summary ---
Discharge Summary Date of Service May 11, 2017. (Genet Joseph ., JIMMY) Discharge Summary Admission Date: May 10, 2017 at 22:45 Discharge Date: May 11, 2017 Discharge Disposition: Home Principal Diagnosis: Left ureteral stone, pyelonephritis Immunizations: Have You Had Influenza Vaccine: Unknown History of Tetanus Vaccine?: Yes History of Pneumococcal: No History of Hepatitis B Vaccine: Yes Hepatitis Immunization Date: May 11, 2017 (Unknown) Procedures: Immediate Operative Summary Operative Date May 11, 2017. Pre-Operative Diagnosis Left distal ureteral stone Post-Operative Diagnosis Left distal ureteral stone Procedure(s) Performed Cystoscopy, Left Ureteroscopy, Laser Lithotripsy, Left Ureteral Stent Placement ballon dilation of ureteral stricture Surgeon Dr. Membreno Candy Cutter Hand Surgeon(s) none Estimated Blood Loss 0 cc Findings distal stone above ureteral stricture Specimens A: Left ureteral stone for chemical analysis Drains 5 by 24 stent Consultations: Urology--Dr. Membreno (Genet Joseph PA-C) Medication Reconciliation New Medications: Ciprofloxacin Hcl (Cipro) 500 Mg Tab 1 TAB PO BID for 6 Days, #12 TAB Magnesium Hydroxide (Milk Of Magnesia) 30 Ml Susp 30 ML PO DAILY PRN for Constipation for 30 Days, #900 ML Phenazopyridine HCl (Phenazopyridine HCl) 200 Mg Tab 200 MG PO TID PRN for Burning with urination for 3 Days, #9 TAB Tamsulosin HCl (Tamsulosin HCl) 0.4 Mg Cap 0.4 MG PO HS for 10 Days, #10 CAP Continued Medications: Ibuprofen Tab (Advil) 200 Mg Tab 400-600 MG PO Q6H PRN for Pain, TAB Sodium Phosphate/Biphosphate (Fleet Enema) Theresa 1 EA NC DAILY PRN for Constipation, BTL Discharge Exam Patient is feeling well postoperatively. She complains of some mild discomfort from the cystoscopy but denies any flank pain. She feels mildly nauseous but declines any anti-emetics. The patient denies fevers, chills, sweats, chest pain, palpitations, claudication, cough, wheezing, shortness of breath, vomiting , abdominal pain, hematuria, urinary retention, paralysis, weakness, numbness and tingling. Review of Systems: Constitutional: No fever, No chills, No sweats Eyes: No worsening of vision, No eye pain, No diplopia ENT: No hearing loss, No sore throat, No trouble swallowing Respiratory: No cough, No wheezing, No shortness of breath Cardiovascular: No chest pain, No claudication, No palpitations Abdomen: + nausea, No pain, No vomiting Musculoskeletal: No joint pain, No muscle pain, No calf pain Genitourinary - Female: + dysuria, No urinary retention, No hematuria Neurologic: No paralysis, No weakness, No numbness/tingling Integumentary: No rash, No itch, No color change Physical Exam: General Appearance: WD/WN, no apparent distress, + obese Eyes: normal inspection, PERRL, EOMI ENT: normal ENT inspection, hearing grossly normal, pharynx normal Neck: supple, no JVD, trachea midline Respiratory/Chest: lungs clear, normal breath sounds, no respiratory distress Cardiovascular: regular rate, rhythm, no gallop, no murmur Abdomen / GI: normal bowel sounds, non tender, soft Extremities: normal inspection, no calf tenderness, no pedal edema Neurologic/Psychiatric: alert, normal mood/affect, oriented x 3 Skin: normal color, warm/dry, no rash (Genet Joseph ., PADorothyC) Hospital Course 32 y/o female with a history of hereditary spherocytosis s/p splenectomy and chronic constipation who presents with left flank pain, nausea and vomiting. Left ureteral stone/pyelonephritis--resolved/improving -Admit to med/surg -Pt kept NPO prior to lithotripsy/stent placement -Successful lithotripsy and left ureteral stent placement by Dr. Membreno 05/11 -Urology: stable for discharge following procedure if pain is controlled. Use milk of magnesia for constipation. F/u in 7-10 days for stent removal. -Continue Cipro 500 mg PO BID x 6 days to complete 7 day course on discharge -Discharge with Flomax, Pyridium and milk of magnesia -Urine culture negative -Blood cultures pending -Leukocytosis improving on discharge Hereditary spherocytosis s/p splenectomy -F/u with PCP regarding proper immunizations for pneumococcus, meningococcus, and HiB Chronic constipation -Milk of magnesia daily prn constipation -Pt may continue home fiber pills and MiraLAX Hyperglycemia--likely a physiologic stress reaction -HgbA1c 5.2 on 05/11 DVT prophylaxis -SCDs Code Status -Level I, FULL RESUSCITATION STATUS Total Time Spent: Greater than 30 minutes This includes examination of the patient, discharge planning, medication reconciliation, and communication with other providers. (Genet Joseph ., PA-C) I agree with PA assessment and plan and have seen and examined pt myself Labs and vitals reviewed Resting comfortably in bed Noted some back pain radiating to groin Noted leukocytosis but improving Can DC after urology procedure Will need cipro and f/u (Noé Escobar D.ONiles) Discharge Instructions Please refer to the electronic Patient Visit Report (Discharge Instructions) for additional information. (Genet Joseph ., PA-C)
[2017-05-11] MEDS: HYDROCODONE/ACETAMOPHEN 5/325MG TAB PO PRN (16:54)
[2017-05-11] MEDS ORDERED: NURSING VERBAL MED ORDER ONE (18:00)
[2017-05-11] MEDS ORDERED: MoRPHine SULFATE 2 MG/ML CARP IV PRN (18:00)
[2017-05-11] MEDS ORDERED: TAMSULOSIN HCL 0.4 MG CAP PO SCH (21:00)
[2017-05-12 03:33] VITALS: BP 121/67; PULSE 70; TEMP 36.7; O2SAT 95
[2017-05-12 06:56] LABS: BASO ABS # 0.01 K/uL (0-0.2); COMPLETE YES; HEMATOCRIT 42.1 % (37-47); IG% 0.4 %; LYMPH % 8.7 %; LYMPH ABS # 1.96 K/uL (1.2-3.4); MEAN CELL VOLUME 89.4 fL (80-100); MEAN CORPUSCULAR HEMOGLOBIN 30.1 pg (25-34); MEAN CORPUSCULAR HGB CONC 33.7 g/dl (32-36); MEAN PLATELET VOLUME 8.9 fL (7.4-10.4); MONO % 4.3 %; NEUT % 86.6 %; PLATELET COUNT 480 K/uL (130-400); RED BLOOD COUNT 4.71 M/uL (4.2-5.4); WHITE BLOOD COUNT 22.58 K/uL (4.8-10.8)
[2017-05-12] MEDS: HYDROCODONE/ACETAMOPHEN 5/325MG TAB PO PRN ×2 (07:05→13:56)
[2017-05-12 07:30] LABS: BUN/CREATININE RATIO 18.2 (10-20); CALCIUM 9.2 mg/dl (8.5-10.1); CREATININE 0.7 mg/dl (0.60-1.20); MAGNESIUM 2.1 mg/dl (1.8-2.4); POTASSIUM 3.8 mmol/L (3.5-5.1)
--- NOTE | 2017-05-12 07:37 | Anesthesiology Progress Note ---
Anesthesia Post Op Note Date & Time May 12, 2017 at 07:36 Vital Signs Pain Intensity: 6.0 Vital Signs Past 12 Hours Date Time Temp Pulse Resp B/P (MAP) Pulse Ox O2 Delivery O2 Flow Rate FiO2 05/12/17 03:33 36.7 70 16 121/67 (85) 95 Room Air 05/11/17 22:30 37.0 90 18 120/78 (92) 92 Room Air 05/11/17 22:30 37.0 81 16 120/74 (89) 93 Room Air 05/11/17 22:30 37.0 93 18 128/84 (99) 92 Room Air 05/11/17 20:33 36.6 83 16 131/72 (91) 93 Room Air Notes Mental Status: alert / awake / arousable, participated in evaluation Pt Amnestic to Procedure: Yes Nausea / Vomiting: adequately controlled Pain: adequately controlled Airway Patency, RR, SpO2: stable & adequate BP & HR: stable & adequate Hydration State: stable & adequate Anesthetic Complications: no major complications apparent
[2017-05-12 07:58] VITALS: BP 118/80; PULSE 80; TEMP 36.8; O2SAT 95
[2017-05-12] MEDS: CIPROFLOXACIN / D5W 400 MG in PREMIXED IN D5W 200 ML IV SCH (08:47)
--- NOTE | 2017-05-12 09:27 | Progress Note ---
Progress Note Date of Service May 12, 2017. Progress Note 32 year old female s/p ULL with stent. She stayed overnight due to stent discomfort/pain. She is sitting up in bed this am, tolerating diet Encouraged her to use the pyridium for stent discomfort. Ok to d/c home from [facility].
[2017-05-12 10:07] VITALS: O2SAT 95
--- NOTE | 2017-05-12 10:12 | Medical Consult ---
Consultation Date of Consultation: May 12, 2017. Attending Physician: Noé Escobar D.O. Reason for Consultation: Pyelo? History of Present Illness Patient is a 32-year-old female who presents to the emergency department with complaints of severe left flank pain radiating into her abdomen. She stated that her pain became increasingly severe over the few hours prior to admission. She had noticed that the pain was worse following urination, and she did have decreased appetite, nausea, and vomiting prior to admission as well. The patient does have a history of constipation, so she felt that the pain was initially due to her about. On admission, the patient did have an abdominal/ pelvic CT scan which showed a 4 mm distal the left ureteral calculus, but no hydronephrosis or hydroureter. Mild left perinephric and periureteral infiltration was noted that, so infectious process could not be excluded. The patient did have blood cultures and urine cultures completed which were unremarkable. She is now s/p left ureteral stent placement. The patient's white blood cell count on admission was 22.67, and white blood cell count today. She was placed on Cipro empirically for concerns of infection which she continues. Her creatinine has been stable and was 0.70 today. She has been followed by Urology, and is anticipated to have follow-up as an outpatient. She has had no fever, sweats, chills, nausea, or vomiting since admission. Past Medical/Surgical History Medical Problems: (1) Left ureteral stone (2) Pyelonephritis Surgical hx: Now s/p Left ureteral stent placement Hx Splenectomy Family History Noncontributory Social History Smoking Status: Never Smoker Smokeless Tobacco Use: No Alcohol Use: none Drug Use: none Marital Status: Occupation Status: employed Allergies Coded Allergies: Cefaclor (Verified Allergy, Unknown, Unknown, 05/10/17) Home Medications Reported Home Medications Medications Dose Route/Sig Max Daily Dose Days Date Category Cipro (Ciprofloxacin Hcl) 500 Mg Tab 1 Tab PO BID 6 05/11/17 Rx Milk Of Magnesia (Magnesium Hydroxide) 30 Ml Susp 30 Ml PO DAILY PRN 30 05/11/17 Rx Phenazopyridine HCl 200 Mg Tab 200 Mg PO TID PRN 3 05/11/17 Rx Tamsulosin HCl 0.4 Mg Cap 0.4 Mg PO HS 10 05/11/17 Rx Fleet Enema (Sodium Phosphate/Biphosphate) Theresa 1 Ea SC DAILY PRN 05/10/17 Reported Advil (Ibuprofen) 200 Mg Tab 400-600 Mg PO Q6H PRN 05/10/17 Reported Current Inpatient Medications Current Inpatient Medications Medications (Trade) Dose Ordered Sig/Maura Route Start Time Stop Time Status Last Admin Dose Admin Ioversol (Optiray 320) 100 ml UD PRN IV 05/10/17 20:00 05/14/17 19:59 Acetaminophen (Tylenol Tab) 650 mg Q4H PRN PO 05/10/17 22:45 06/09/17 22:44 Zolpidem Tartrate (Ambien Tab) 5 mg HSZ PRN PO 05/10/17 22:45 06/09/17 22:44 Ondansetron HCl (Zofran Inj) 4 mg Q6H PRN IV 05/10/17 22:45 06/09/17 22:44 05/11/17 15:01 4 MG Acetaminophen/ Hydrocodone Bitart (Reliance 5/325 Tab) 1 tab Q6H PRN PO 05/10/17 03:30 05/24/17 03:29 05/12/17 07:05 1 TAB Tramadol HCl (Ultram Tab) 50 mg Q4H PRN PO 05/10/17 03:30 06/09/17 03:29 Sodium Biphosphate/ Sodium Phosphate (Fleet Enema) 10 ml DAILY PRN SC 05/10/17 22:45 06/09/17 22:44 Ciprofloxacin/ Dextrose 400 mg/ Prmx 200 ml @ 100 mls/hr Q12@0800,2000 IV 05/11/17 08:00 05/20/17 07:59 05/12/17 08:47 100 MLS/HR Bisacodyl (Dulcolax Supp) 10 mg DAILY PRN SC 05/11/17 01:00 06/10/17 00:59 Tamsulosin HCl (Flomax Cap) 0.4 mg HS PO 05/11/17 21:00 06/10/17 20:59 05/11/17 21:31 0.4 MG Phenazopyridine HCl (Pyridium Tab) 200 mg TID PRN PO 05/11/17 07:45 06/10/17 07:44 05/11/17 14:58 200 MG Ondansetron HCl (Zofran Inj) 4 mg ONE PRN IV 05/11/17 11:00 Promethazine HCl 12.5 mg/Sodium Chloride 50.5 ml @ 202 mls/hr ONE PRN IV 05/11/17 11:00 Morphine Sulfate (MoRPHine SULFATE INJ) 1 mg Q2H PRN IV 05/11/17 18:00 05/25/17 17:59 05/11/17 17:58 1 MG Review of Systems Constitutional: No fever, No chills, No sweats Eyes: No worsening of vision ENT: No hearing loss Respiratory: No cough, No shortness of breath Cardiovascular: No chest pain, No palpitations Abdomen: + pain (left lower abdomen- radiating from back), No nausea, No vomiting Musculoskeletal: + problem reported (left lower back pain), No joint pain, No muscle pain Genitourinary - Female: No dysuria, No urinary frequency Integumentary: No rash, No itch, No new/changing skin lesions Physical Exam Date Time Temp Pulse Resp B/P (MAP) Pulse Ox O2 Delivery O2 Flow Rate FiO2 05/12/17 08:50 Room Air 05/12/17 07:58 36.8 80 10 118/80 (93) 95 Room Air 05/12/17 03:33 36.7 70 16 121/67 (85) 95 Room Air 05/11/17 22:30 37.0 90 18 120/78 (92) 92 Room Air 05/11/17 22:30 37.0 81 16 120/74 (89) 93 Room Air 05/11/17 22:30 37.0 93 18 128/84 (99) 92 Room Air 05/11/17 20:33 36.6 83 16 131/72 (91) 93 Room Air 05/11/17 19:30 Room Air 05/11/17 16:57 36.8 85 18 130/77 (94) 95 Room Air 05/11/17 16:00 36.5 70 16 123/77 (92) 97 Room Air 05/11/17 15:31 36.4 71 16 96 Room Air 05/11/17 15:00 36.4 71 16 123/79 (94) 96 Room Air 05/11/17 14:40 36.7 73 18 126/82 (97) 97 Nasal Cannula 2.0 05/11/17 14:30 36.4 72 16 115/76 (89) 97 Nasal Cannula 1.0 05/11/17 14:00 100 Nasal Cannula 2.0 05/11/17 14:00 36.6 74 16 124/82 (96) 100 Nasal Cannula 2.0 05/11/17 13:56 129/71 05/11/17 13:53 65 13 100 05/11/17 13:53 65 13 05/11/17 13:51 126/78 05/11/17 13:48 67 11 05/11/17 13:48 67 11 100 05/11/17 13:46 131/77 05/11/17 13:43 73 12 05/11/17 13:43 71 12 100 05/11/17 13:41 122/79 05/11/17 13:38 79 10 100 05/11/17 13:38 80 10 05/11/17 13:36 136/76 05/11/17 13:33 73 17 05/11/17 13:33 73 17 100 05/11/17 13:31 134/76 05/11/17 13:28 77 14 100 05/11/17 13:28 76 14 05/11/17 13:28 36.5 77 16 134/76 (85) 100 Nasal Cannula 2 05/11/17 13:27 74 12 05/11/17 13:27 73 12 100 05/11/17 13:26 132/74 05/11/17 13:22 77 11 05/11/17 13:22 77 11 100 05/11/17 13:21 128/78 05/11/17 13:17 75 11 05/11/17 13:17 78 11 100 05/11/17 13:16 125/75 05/11/17 13:12 71 13 05/11/17 13:12 72 13 100 05/11/17 13:11 133/77 05/11/17 13:08 134/77 05/11/17 13:07 86 8 100 05/11/17 13:07 85 8 05/11/17 13:06 151/136 05/11/17 13:02 80 8 100 05/11/17 13:02 79 8 05/11/17 13:01 127/78 05/11/17 12:58 129/72 05/11/17 12:57 37.0 83 16 129/72 100 Mask 10 05/11/17 12:57 79 10 100 05/11/17 12:57 81 10 05/11/17 11:08 36.8 79 16 130/82 (98) 98 Room Air General Appearance: WD/WN, no apparent distress Head: normocephalic, atraumatic Eyes: normal inspection, sclerae normal ENT: hearing grossly normal Neck: supple, trachea midline Respiratory/Chest: no respiratory distress, no accessory muscle use Cardiovascular: regular rate, rhythm, no murmur Abdomen/GI: soft Back: normal inspection, + pertinent finding (left CVA tenderness ) Extremities/Musculoskelatal: normal range of motion Neurologic/Psych: alert, normal mood/affect Skin: normal color, warm/dry, no rash Laboratory Results CT OF THE ABDOMEN AND PELVIS WITH CONTRAST CLINICAL HISTORY: Abdominal pain, constipation, leukocytosis. COMPARISON STUDY: None. TECHNIQUE: Following IV administration of 93 mL of Optiray-320, axial images of the abdomen and pelvis were obtained from the lung bases to the proximal femurs. Images were reviewed in the axial, sagittal, and coronal planes. IV contrast was administered without complication. A dose lowering technique was utilized adhering to the principles of ALARA. CT DOSE: 789.44 mGy.cm FINDINGS: No pneumatosis, free air or portal venous gas is present. The spleen is surgically absent. There is a gallstone within the gallbladder. There is no pericholecystic infiltration. The liver, adrenal glands and pancreas are normal. Note is made of a 4 mm calculus within the upper pole of the right kidney. There is mild left perinephric infiltration as well as minimal periureteral infiltration. Note is made of a 4 mm nonobstructing distal left ureteral calculus shown on image 425 of 506. There is no renal abscess. There is mild urothelial thickening of the left renal pelvis and ureter. There is no evidence for a bowel obstruction. The caliber and wall thickness of small and large bowel is normal. The appendix is not visualized on this exam but there is no right lower quadrant inflammation. The ovaries are not enlarged. No suspicious skeletal lesions are identified. IMPRESSION: 1. 4 mm distal left ureteral calculus. No hydronephrosis or hydroureter. Mild left perinephric and periureteral infiltration is likely related to the obstruction however a superimposed infectious process cannot be excluded. 2. Cholelithiasis. No evidence of acute cholecystitis by CT. 3. Nonvisualization of the appendix. 4. Status post splenectomy. Item Value Date Time Blood Culture - Preliminary Resulted 05/10/172129 Blood NO GROWTH TO DATE. Blood Culture - Preliminary Resulted 05/10/172124 Blood NO GROWTH TO DATE. Urine Culture - Final Complete 05/10/171914 Urine , Clean Catch MORE THAN THREE TYPES OF ORGANISMS SC... Last 24 Hours Test 05/12/17 06:38 White Blood Count 22.58 K/uL Red Blood Count 4.71 M/uL Hemoglobin 14.2 g/dL Hematocrit 42.1 % Mean Corpuscular Volume 89.4 fL Mean Corpuscular Hemoglobin 30.1 pg Mean Corpuscular Hemoglobin Concent 33.7 g/dl Platelet Count 480 K/uL Mean Platelet Volume 8.9 fL Neutrophils (%) (Auto) 86.6 % Lymphocytes (%) (Auto) 8.7 % Monocytes (%) (Auto) 4.3 % Eosinophils (%) (Auto) 0.0 % Basophils (%) (Auto) 0.0 % Neutrophils # (Auto) 19.55 K/uL Lymphocytes # (Auto) 1.96 K/uL Monocytes # (Auto) 0.98 K/uL Eosinophils # (Auto) 0.00 K/uL Basophils # (Auto) 0.01 K/uL RDW Standard Deviation 46.8 fL RDW Coefficient of Variation 14.3 % Immature Granulocyte % (Auto) 0.4 % Immature Granulocyte # (Auto) 0.08 K/uL Sodium Level 138 mmol/L Potassium Level 3.8 mmol/L Chloride Level 105 mmol/L Carbon Dioxide Level 28 mmol/L Anion Gap 5.0 mmol/L Blood Urea Nitrogen 13 mg/dl Creatinine 0.70 mg/dl Est Creatinine Clear Calc Drug Dose 136.0 ml/min Estimated GFR () 132.9 Estimated GFR (Non- 114.6 BUN/Creatinine Ratio 18.2 Random Glucose 142 mg/dl Calcium Level 9.2 mg/dl Magnesium Level 2.1 mg/dl Assessment & Plan Patient with leukocytosis, history of splenectomy, left distal ureteral stone, and now s/p left ureteral stent placement. She is currently on Cipro. Urine culture and urinalysis were unremarkable. Feel that this is a non-infectious cause of leukocytosis- more likely due to stone. Agree with urology's current plan. ID will sign off. Thanks PROVIDER ADDENDUM: Patient examined and reviewed with PA, agree with above assessment.
[2017-05-12] MEDS ORDERED: ULT50X PO (13:22)
== END 2017-05-12 14:20 | disposition home or self-care (01) | DRG 670 ==
LOC: C.EDB 18:47 → C.MSN 22:45 → ENRESERV 22:57
PROVIDERS: ADMIT Hospitalist; ATTEND Hospitalist
PROC: 0TC78ZZ Extirpation of Matter from Left Ureter, Via Natural or Artificial Opening Endoscopic (ICD-10-PCS; principal; 2017-05-11 10:15)
PROC: 0T778DZ Dilation of Left Ureter with Intraluminal Device, Via Natural or Artificial Opening Endoscopic (ICD-10-PCS; principal; 2017-05-11 10:15)
DX: N20.2 Calculus of kidney with calculus of ureter (principal); K59.00 Constipation, unspecified; R73.9 Hyperglycemia, unspecified; D72.829 Elevated white blood cell count, unspecified; Z79.899 Other long term (current) drug therapy; Z88.8 Allergy status to other drugs, medicaments and biological substances; K80.20 Calculus of gallbladder without cholecystitis without obstruction

== ENCOUNTER 2017-05-13 19:20 | Emergency (ER) | payer BC, OTHER ==
[~2017-05-13] VITALS: Ht 170.2 cm; Wt 95.3 kg
[~2017-05-13 19:20] MED LIST changes: +CIPR-255 PO; +FLM4 PO; +IBUP-103 PO; +MOML PO; -MoRPHine SULFATE 4 MG/ML 1 ML CARP\\VIAL IV PRN; +PHEN-1043 PO; +SODIENE PR; -TRAMADOL HCL 50 MG TAB PO PRN; +ULT50X PO
[2017-05-13 19:23] VITALS: Ht 170.2 cm; Wt 95.3 kg
--- NOTE | 2017-05-13 19:51 | EMERGENCY ROOM VISIT NOTE ---
History First contact with patient: 19:25 Chief Complaint: OTHER COMPLAINT Stated Complaint: KIDNEY STONE STENT IS COMING OUT History of Present Illness The patient is a 32 year old female who presents to the Emergency Room with complaints of her left ureteral stent is coming out. The patient states that she was seen in the emergency room on Monday and was diagnosed with a left kidney stone. She had lithotripsy done on by Dr. Membreno and he placed a stent in her left ureter. She is to have the stent removed on May 23. The patient is asplenic. The patient denies any increased abdominal pain, nausea or vomiting. The patient states that she is constantly leaking urine from the stent. She states the stent is visible from the urethra. Her states that he called the answering service for the urology group and was cut off after he had given her them all the information about his . He therefore thought he should just bring her to the emergency room. Review of Systems 6 system review was performed and was negative unless stated otherwise in history of present illness. Past Medical/Surgical History Medical Problems: (1) Left ureteral stone (2) Pyelonephritis Social History Smoking Status: Never Smoker Drug Use: none Marital Status: Occupation Status: employed Current/Historical Medications Scheduled Ciprofloxacin Hcl (Cipro), 1 TAB PO BID Tamsulosin HCl (Tamsulosin HCl), 0.4 MG PO HS Scheduled PRN Ibuprofen Tab (Advil), 400-600 MG PO Q6H PRN for Pain Magnesium Hydroxide (Milk Of Magnesia), 30 ML PO DAILY PRN for Constipation Phenazopyridine HCl (Phenazopyridine HCl), 200 MG PO TID PRN for Burning with urination Sodium Phosphate/Biphosphate (Fleet Enema), 1 EA IA DAILY PRN for Constipation Tramadol HCl (Tramadol HCl), 50 MG PO Q4H PRN for Pain Physical Exam Vital Signs Date Time Temp Pulse Resp B/P (MAP) Pulse Ox O2 Delivery O2 Flow Rate FiO2 05/13/17 19:23 37.0 95 18 143/83 92 Room Air Physical Exam GENERAL: 32-year-old white female appears in no acute distress. MENTAL Status: Alert and oriented 3. MOUTH: Mucosa is moist NECK: Supple, no lymphadenopathy noted. No carotid bruits noted. LUNGS: Clear auscultation without wheezes rales or rhonchi. CARDIAC: Regular rate and rhythm without murmur. Pulses is full and equal throughout. BACK: No CVA tenderness noted. ABDOMEN: Positive bowel sounds all 4 quadrants. Soft, generalized tenderness to palpation throughout. GENITALIA. There is a visible green stent extending from the urethra with urine draining. EXTREMITIES: No cyanosis or edema noted. Medical Decision & Procedures ED Course The patient was evaluated. The patient's EMR medication list were reviewed. Dr. Moffett was consulted and I was instructed just to remove the stent. The patient is continue all medications as prescribed. I informed the patient a treatment plan. I removed the stent. The patient was discharged home in stable condition. Medical Decision The decision was made to consult urology and whether or not they wanted me to remove the stent or if they wanted to replace it today. Medication Reconcilliation Current Medication List: was personally reviewed by me Blood Pressure Screening Patient's blood pressure: Elevated blood pressure Blood pressure disposition: Elevated BP felt to be situational Impression Primary Impression: Ureteral stent displacement Departure Information Dispostion Home / Self-Care Condition GOOD Referrals No Doctor, Assigned (PCP) Forms HOME CARE DOCUMENTATION FORM, IMPORTANT VISIT INFORMATION, WORK / SCHOOL INSTRUCTIONS Patient Instructions [facility] [employer] Additional Instructions Continue all medications as prescribed. If you experience any high fevers, severe abdominal pain return to ER immediately. Call Dr. Membreno on Monday to inform him about today's ER visit. Problem Qualifiers Primary Impression: Ureteral stent displacement Encounter type: initial encounter Qualified Codes: T83.122A - Displacement of indwelling ureteral stent, initial encounter
[2017-05-13 20:09] VITALS: BP 134/80; PULSE 89; TEMP 37; O2SAT 95
== END 2017-05-13 20:09 | disposition home or self-care (01) ==
LOC: C.EDB 19:21 → C.EDC 20:09
DX: T83.122A Displacement of indwelling ureteral stent, initial encounter (principal); X58.XXXA Exposure to other specified factors, initial encounter; Z87.440 Personal history of urinary (tract) infections; Z87.442 Personal history of urinary calculi

== ENCOUNTER → 2017-05-22 | Outpatient (CLI) | payer BC, OTHER ==
--- NOTE | 2017-05-22 17:52 | DIAGNOSTIC IMAGING REPORT ---
KUB HISTORY: N20.0 [id number] COMPARISON: KUB 05/11/2017. FINDINGS: The bowel gas pattern is unremarkable. There are no dilated loops of small bowel to suggest an obstruction. The 3 mm stone at the left ureterovesical junction seen on the prior studies is no longer visualized and is likely passed. Stable punctate calcification within the left deep pelvis demonstrated to be a phlebolith. Stable 2 mm stone within the right kidney. No left renal calculi. No pneumoperitoneum or pneumatosis. IMPRESSION: Stable right-sided nephrolithiasis. No ureteral calculi. The left UVJ stone has passed in the interval. Electronically signed by: Cedric Hernández M.D. 05/22/2017 5:50 PM Dictated Date/Time: 05/22/2017 5:48 PM
== END | disposition home or self-care (01) ==
LOC: C.RAD 17:17
PROVIDERS: ATTEND Urology
DX: N20.0 Calculus of kidney (principal)

== ENCOUNTER 2018-12-07 17:05 | Inpatient (IN) ==
--- NOTE | 2018-12-07 17:41 | XRay Report ---
XR chest 1V portable CLINICAL HISTORY: 33 years-old Female presenting with weakness. TECHNIQUE: Portable upright AP view of the chest was obtained. COMPARISON: 05/11/2017. FINDINGS: Cardiomediastinal silhouette normal. No focal opacity. No large effusion or pneumothorax. Osseous str uctures normal. Upper abdomen normal. IMPRESSION: 1. No acute cardiopulmonary disease. Electronically signed by: Abdoulaye Oneal M.D. 12/07/2018 5:40 PM
[2018-12-07 17:56] LABS: Basophils # (auto) 0.05 K/uL (0-0.2); Basophils % (auto) 0.3 %; Eosinophils # (auto) 0.09 K/uL (0-0.5); Eosinophils % (auto) 0.6 %; Hematocrit (blood only) 44.9 % (37-47); Hemoglobin 15.6 g/dL (12.0-16.0); Immature Granulocytes # (auto) 0.09 K/uL (0.00-0.02); Immature Granulocytes % (auto) 0.6 %; Lymphocytes # (auto) 2.44 K/uL (1.2-3.4); Lymphocytes % (auto) 16.7 %; Mean Corpuscular Hgb Conc 34.7 g/dL (32-36); Mean Corpuscular Volume 88.2 fL (80-100); Mean Platelet Volume 10.1 fL (7.4-10.4); Monocytes # (auto) 0.93 K/uL (0.11-0.59); Monocytes % (auto) 6.4 %; Neutrophils % (auto) 75.4 %; Platelet Count 419 K/uL (130-400); RDW Standard Deviation 45.3 fL (36.4-46.3); Red Blood Count 5.09 M/uL (4.2-5.4)
[2018-12-07 18:05] LABS: Appearance Urine Clear (Clear); Bacteria Urine Automated Negative (Negative); Bilirubin Urine Negative (Negative); Blood Urine Trace (Negative); Color Urine Dark Yellow; Epithelial Cell Urine Auto >30 /lpf (0-5); Glucose Urine UA 3+ (Negative); Ketones Urine 1+ (Negative); Leukocyte Esterase Urine Negative (Negative); Nitrite Urine Positive (Negative); Protein Urine Negative (Negative); RBC Urine Automated 0-4 /hpf (0-4); Specific Gravity Urine 1.044 (1.000-1.030); Urobilinogen Urine Negative (Negative); pH Urine 5.5 (4.5-7.5)
[2018-12-07 18:18] LABS: Albumin Level 3.7 gm/dl (3.4-5.0); BUN Creatinine Ratio 16.5 (10-20); Calcium 8.9 mg/dl (8.5-10.1); Est GFR (African American) 131.9; Est GFR (Non-African American) 113.8
[2018-12-07 18:26] LABS: Albumin Globulin Ratio 0.9 (0.9-2); Bilirubin,Total 0.8 mg/dl (0.2-1); Globulin 4.2 gm/dl (2.5-4.0); Total Protein 7.9 gm/dl (6.4-8.2)
--- NOTE | 2018-12-07 18:31 | Magnetic Resonance Report ---
MR brain wo con HISTORY: 33 years-old Female left facial weakness acute left-sided facial droop with headache COMPARISON: None available TECHNIQUE: Multiplanar multisequence MRI of the brain was obtained without the use of IV contrast FINDINGS: Automatic Mold Sander localizer images demonstrate no gross extracranial abnormality. Midline structures including th e corpus callosum, brainstem, optic chiasm, pituitary and pineal glands appear unremarkable on the sa gittal T1 series. No cerebellar tonsillar herniation. Imaged cervical spine appears unremarkable. There is a moderate sized acute infarction about the right frontal lobe with extension into the coron a radiata and centrum semiovale measuring up to 3.2 x 2.6 cm in AP and transverse dimension. Markedly decreased signal on the ADC map within this area with mildly increased FLAIR signal. Brain parenchym a otherwise appears unremarkable without additional infarction or abnormal T2/FLAIR signal. No acute intracranial hemorrhage, midline shift, abnormal extra axial collections, hydrocephalus or intracrani al mass. Major flow voids appear patent. Mild mucosal thickening about the maxillary sinuses. Mastoid air cell s appear clear. The orbits, skull and soft tissues are also within normal limits. 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 No associated acute intracranial hemorrhage, midline shift or hydr ocephalus. The above report was generated using voice recognition software. It may contain grammatical, syntax o r spelling errors. Electronically signed by: David Pace M.D. 12/07/2018 6:30 PM
--- NOTE | 2018-12-07 18:33 | CT Scan Report ---
CT head/brain wo con CLINICAL HISTORY: 33 years-old Female with left face droop. Acute left-sided facial droop TECHNIQUE: Multiple axial CT images of the head were obtained without contrast. A dose lowering tech nique was utilized adhering to the principles of ALARA. CT DOSE: 537.48 mGy.cm COMPARISON: MRI brain of same day. FINDINGS: Ill-defined moderate sized hypodensity about the right frontal lobe, image 11 series 2 with blurring of the graf-white interface. Additional ill-defined hypodensity about the centrum semiovale and coron a radiata right frontal lobe. No acute intracranial hemorrhage, midline shift or abnormal extra-axial collections. Ventricles, cisterns and sulci otherwise appear unremarkable. The calvarium is intact. The paranasal sinuses, mastoid air cells, and middle ear cavities are clear . IMPRESSION: Moderate sized acute infarction of the right frontal lobe, better characterized and desc ribed on comparison brain MRI of same day. The above report was generated using voice recognition software. It may contain grammatical, syntax o r spelling errors. Electronically signed by: David Pace M.D. 12/07/2018 6:32 PM
[2018-12-07] MEDS ORDERED: ASPIRIN CHEW 324 MG PO STA (18:54)
[2018-12-07] MEDS ORDERED: OPTIRAY 320 125ml IV PRN (19:27)
--- NOTE | 2018-12-07 19:36 | CT Scan Report ---
CT angio head w con CLINICAL HISTORY: 33 years-old Female presenting with cva, left facial weakness with acute left-sided facial droop and headache. TECHNIQUE: Multidetector CT angiography of the head was performed after the administration of intrave nous contrast. 3-D volumetric and/or maximum intensity projection (MIP) images were subsequently chika nstructed for review. IV contrast: 119 mL of Optiray 320. One or more dose lowering techniques were u sed consistent with the principles of ALARA (as low as reasonably achievable), including automatic ex posure control, mA or kV adjustment to individual patient size, and/or use of iterative reconstructio n. COMPARISON: Noncontrast CT head and MR brain performed earlier today. CT DOSE (mGy.cm): The estimated cumulative dose is 549.05 mGy.cm. FINDINGS: Mortgage Counselor topogram: Unremarkable. Anterior circulation: Intracranial portions of the internal carotid arteries patent to the level of t he termini. Anterior cerebral arteries patent. Middle cerebral arteries patent. Anterior communicatin g artery patent. Posterior circulation: Codominant vertebral arteries. Intradural portions of the vertebral arteries p atent. Posterior inferior cerebellar arteries patent. Basilar artery patent. Anterior inferior cerebe llar arteries poorly visualized. Superior cerebellar arteries patent. origin or near orig in of the left posterior cerebral artery. Right posterior cerebral artery patent with a normal morpho logy. Right posterior communicating artery hypoplastic or aplastic. Dural venous sinuses: Patent. Other: Allowing for the phase of contrast, brain parenchyma within normal limits. Calvarium intact. IMPRESSION: 1. No evidence of aneurysm, focal vessel occlusion, or significant stenosis of the intracranial steven levy. Electronically signed by: Abdoulaye Oneal M.D. 12/07/2018 7:35 PM
--- NOTE | 2018-12-07 19:39 | CT Scan Report ---
CT angio neck with con CLINICAL HISTORY: 33 years-old Female presenting with cva. TECHNIQUE: Multidetector CT angiography of the neck was performed after the administration of intrave nous contrast. 3-D volumetric and/or maximum intensity projection (MIP) images were subsequently chika nstructed for review. IV contrast: 119 mL of Optiray 320. One or more dose lowering techniques were u sed consistent with the principles of ALARA (as low as reasonably achievable), including automatic ex posure control, mA or kV adjustment to individual patient size, and/or use of iterative reconstructio n. Stenosis measurements were based on NASCET-like criteria (distal lumen diameter as the denominator for stenosis measurement). COMPARISON: MR brain from earlier today. CT DOSE (mGy.cm): The estimated cumulative dose is 549.05. FINDINGS: Stone Layer topogram: Unremarkable. Aortic arch: Normal three-vessel aortic arch with patent origins of the branch vessels. Innominate artery: Patent. Right subclavian artery: Patent. Right common carotid artery: Patent. Right internal and external carotid arteries: Right carotid bifurcation patent. Right internal and ex ternal carotid arteries widely patent. Left common carotid artery: Patent. Left internal and external carotid arteries: Left carotid bifurcation patent. Left internal and exter nal carotid arteries widely patent. Left subclavian artery: Patent. Vertebral arteries: Codominant vertebral arteries. Origins and courses of the bilateral vertebral art eries patent. Other: Limited intracranial evaluation within normal limits. Soft tissues of the neck normal allowing for the phase of contrast. Normal cervical spine. Lung apices clear. IMPRESSION: 1. No evidence of dissection, focal vessel occlusion, or significant stenosis of the cervical arteri es. Electronically signed by: Abdoulaye Oneal M.D. 12/07/2018 7:38 PM
--- NOTE | 2018-12-07 20:04 | Emergency Department Note ---
Entered by Saúl Arana acting as a scribe for History of Present Illness General Chief complaint: Stroke/CVA Symptoms Stated complaint: FACIAL DROOP, HEADACHE, SLURRED SPEECH Time Seen by Provider: 12/07/18 17:12 Source: patient and other (coworker) History of Present Illness Provider complaint: stroke symptoms Onset (ago): day(s) (today around 1100) Location: head Pain Consistency: + other (sudden) Maximum Pain Intensity: 0 Quality: + other (stroke symptoms) Associated symptoms: + denies other symptoms (cold symptoms) and + other (left sided facial droop, falling asleep at work, repeating questions, scrambled typing) The patient is a 33 year old female who presents to the Emergency Room with complaints of sudden stroke symptoms that were noticed by her coworkers around 1100 today. The patient's coworker reports that the patient was moving slow today which is unusual for her. The patient's coworker also reports that the patient was taking notes on the computer and states that the notes were scrambled up numbers and letters. 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 The patient's coworker states that the patient's facial droop in regards to the patient's smile is not as bad as it was earlier. The patient denies any medical problems, but states she is currently on an antibiotic for a UTI. She denies any cold symptoms. The patient reports that she has had her period for about a month which is atypical for her. She states that she has not seen anyone for this and also reports that she does not have a PCP. Home Medications Home Medications Medication Instructions Recorded Confirmed Type sulfamethoxazole-trimethoprim 1 tab PO BID 12/07/18 12/07/18 History Allergies Allergy/AdvReac Type Severity Reaction Status Date / Time cefaclor Allergy Unknown Unknown Verified 12/07/18 18:37 Past Med/Surg History Medical History No known health problems Social History Feels Safe at Home: Yes Smoking Status: Never smoker Preferred Language: French Review of Systems See HPI for pertinent positives & negatives. and A total of 10 systems reviewed and were otherwise negative Physical Exam Vital Signs Vital Signs - 24 hr 12/07/18 17:06 12/07/18 17:36 12/07/18 18:36 Temperature 36.5 C Temperature Source Oral Sepsis Recent Fever Within 48 Hours No Sepsis Action Taken by Nursing No Action Required Pulse Rate 92 H Pulse Rate [Left] 84 Respiratory Rate 18 18 Respiratory Effort / Characteristics Non-Labored Spontaneous Non-Labored Spontaneous Respiratory Depth Normal Normal Respiratory Pattern Regular Blood Pressure 129/61 Blood Pressure [Right Arm] 125/72 Blood Pressure Mean 83 Blood Pressure Mean [Right Arm] 89 Blood Pressure Position Sitting Blood Pressure Position [Right Arm] Lying Pulse Oximetry 95 97 Oxygen Delivery Method Room Air Room Air Room Air VITAL SIGNS: were reviewed as above. GENERAL:Non-toxic in appearance. SKIN: Warm dry and pink. HEAD: Normocephalic and atraumatic. OROPHARYNX: Is clear and moist NECK: Supple without lymphadenopathy or meningismus. LUNGS: clear. HEART: Regular rate and rhythm. ABDOMEN: Soft and nontender. EXTREMITIES: Warm and well perfused. NEUROLOGICALLY: Awake alert and oriented without focal deficit. Cranial nerves 2 -12 are intact. There is no pronator drift. Cerebellar testing is within normal limits. There is no nystagmus. Very subtle left sided facial drooping. Speech is clear. Vision is grossly normal. MUSCULOSKELETAL: Good muscle tone. No evidence of trauma. Course 1713: Past medical records reviewed. The patient was evaluated in room A10, and a complete history and physical examination were performed. 1899: I reviewed the patients case with Aliya Wright Neurology. He said to get a CTA of head and neck and if the results are abnormal call him back , but if they're normal get her admitted locally. 1909: I discussed test results with the patient. I also informed her that we will be taking her for a CTA of her head and neck. 1956: I reviewed the patient's case with Denise Garza Hospitalist. He will evaluate the patient for further management. Consultations Consultation #1: Aliya Wright Neurology Time: 19:00 Consultation #2: Denise Garza Hospitalist Time: 19:57 Administered Medications Ioversol (Optiray 320 125ml) 119 ml IV ONCE PRN PRN Reason: Interaction Checking Stop: 12/11/18 19:26 Last Admin: 12/07/18 19:27 Dose: 119 ml Medical Decision Making Differential Diagnosis Differential diagnosis: Etiologies such as metabolic, infection, hypo/hyperglycemia, electrolyte abnormalities, cardiac sources, intracerebral event, toxicologic, neurologic, brain tumor, multiple sclerosis, as well as others were entertained. Medical Records Attestation: I reviewed the patient's medical records. Home Medications Current Medication List: was personally reviewed by me Laboratory Data Attestation: I reviewed the patient's lab results. Result diagrams: 12/07/18 17:45 12/07/18 17:45 Lab Results 12/07/18 12/07/18 12/07/18 Range/Units 17:45 17:45 17:45 WBC 14.60 H (4.8-10.8) K/uL RBC 5.09 (4.2-5.4) M/uL Hgb 15.6 (12.0-16.0) g/dL Hct 44.9 (37-47) % MCV 88.2 (80-100) fL MCH 30.6 (25-34) pg MCHC 34.7 (32-36) g/dL RDW Std Deviation 45.3 (36.4-46.3) fL RDW Coeff of Paulina 14.0 (11.5-14.5) % Plt Count 419 H (130-400) K/uL MPV 10.1 (7.4-10.4) fL Immature Gran % (Auto) 0.6 % Neut % (Auto) 75.4 % Lymph % (Auto) 16.7 % Bleckley % (Auto) 6.4 % Eos % (Auto) 0.6 % Baso % (Auto) 0.3 % Immature Gran # (Auto) 0.09 H (0.00-0.02) K/uL Neut # (Auto) 11.00 H (1.4-6.5) K/uL Lymph # (Auto) 2.44 (1.2-3.4) K/uL Bleckley # (Auto) 0.93 H (0.11-0.59) K/uL Eos # (Auto) 0.09 (0-0.5) K/uL Baso # (Auto) 0.05 (0-0.2) K/uL PT Cancelled INR Cancelled Sodium 133 L (136-145) mmol/L Potassium (3.5-5.1) mmol/L Chloride 100 (98-107) mmol/L Carbon Dioxide 27 (21-32) mmol/L Anion Gap 6.0 (3-11) BUN 11 (7-18) mg/dl Creatinine 0.70 (0.6-1.2) mg/dl Est Cr Clr Drug Dosing 136.0 ml/min Est GFR ( Amer) 131.9 Est GFR (Non-Af Amer) 113.8 BUN/Creatinine Ratio 16.5 (10-20) Glucose 271 H (70-99) mg/dl POC Glucose (70-99) Calcium 8.9 (8.5-10.1) mg/dl Total Bilirubin 0.8 (0.2-1) mg/dl AST (15-37) U/L ALT 25 (12-78) U/L Alkaline Phosphatase 122 H (45-117) U/L Total Protein 7.9 (6.4-8.2) gm/dl Albumin 3.7 (3.4-5.0) gm/dl Globulin 4.2 H (2.5-4.0) gm/dl Albumin/Globulin Ratio 0.9 (0.9-2) TSH 1.930 (0.300-4.500) uIu/ml Urine Color Urine Appearance (Clear) Urine pH (4.5-7.5) Ur Specific Clifton (1.000-1.030) Urine Protein (Negative) Urine Glucose (UA) (Negative) Urine Ketones (Negative) Urine Blood (Negative) Urine Nitrite (Negative) Urine Bilirubin (Negative) Urine Urobilinogen (Negative) Ur Leukocyte Esterase (Negative) Urine WBC (Auto) (0-5) /hpf Urine RBC (Auto) (0-4) /hpf U Hyaline Cast (Auto) (0-5) /lpf U Epithel Cells (Auto) (0-5) /lpf Urine Bacteria (Auto) (Negative) POC Ur Test (NEG) 12/07/18 12/07/18 12/07/18 Range/Units 17:45 17:50 17:50 WBC (4.8-10.8) K/uL RBC (4.2-5.4) M/uL Hgb (12.0-16.0) g/dL Hct (37-47) % MCV (80-100) fL MCH (25-34) pg MCHC (32-36) g/dL RDW Std Deviation (36.4-46.3) fL RDW Coeff of Paulina (11.5-14.5) % Plt Count (130-400) K/uL MPV (7.4-10.4) fL Immature Gran % (Auto) % Neut % (Auto) % Lymph % (Auto) % Bleckley % (Auto) % Eos % (Auto) % Baso % (Auto) % Immature Gran # (Auto) (0.00-0.02) K/uL Neut # (Auto) (1.4-6.5) K/uL Lymph # (Auto) (1.2-3.4) K/uL Bleckley # (Auto) (0.11-0.59) K/uL Eos # (Auto) (0-0.5) K/uL Baso # (Auto) (0-0.2) K/uL PT INR Sodium (136-145) mmol/L Potassium (3.5-5.1) mmol/L Chloride (98-107) mmol/L Carbon Dioxide (21-32) mmol/L Anion Gap (3-11) BUN (7-18) mg/dl Creatinine (0.6-1.2) mg/dl Est Cr Clr Drug Dosing ml/min Est GFR ( Amer) Est GFR (Non-Af Amer) BUN/Creatinine Ratio (10-20) Glucose (70-99) mg/dl POC Glucose 286 H (70-99) Calcium (8.5-10.1) mg/dl Total Bilirubin (0.2-1) mg/dl AST (15-37) U/L ALT (12-78) U/L Alkaline Phosphatase (45-117) U/L Total Protein (6.4-8.2) gm/dl Albumin (3.4-5.0) gm/dl Globulin (2.5-4.0) gm/dl Albumin/Globulin Ratio (0.9-2) TSH (0.300-4.500) uIu/ml Urine Color Dark Yellow Urine Appearance Clear (Clear) Urine pH 5.5 (4.5-7.5) Ur Specific Clifton 1.044 H (1.000-1.030) Urine Protein Negative (Negative) Urine Glucose (UA) 3+ H (Negative) Urine Ketones 1+ H (Negative) Urine Blood Trace H (Negative) Urine Nitrite Positive H (Negative) Urine Bilirubin Negative (Negative) Urine Urobilinogen Negative (Negative) Ur Leukocyte Esterase Negative (Negative) Urine WBC (Auto) 1-5 (0-5) /hpf Urine RBC (Auto) 0-4 (0-4) /hpf U Hyaline Cast (Auto) 1-5 (0-5) /lpf U Epithel Cells (Auto) >30 H (0-5) /lpf Urine Bacteria (Auto) Negative (Negative) POC Ur Test NEG (NEG) Imaging Data Radiologist's Impression: Radiology results as stated below per my review and the radiologist's interpretation: XR chest 1V portable CLINICAL HISTORY: 33 years-old Female presenting with weakness. TECHNIQUE: Portable upright AP view of the chest was obtained. COMPARISON: 05/11/2017. FINDINGS: Cardiomediastinal silhouette normal. No focal opacity. No large effusion or pneumothorax. Osseous structures normal. Upper abdomen normal. IMPRESSION: 1. No acute cardiopulmonary disease. Electronically signed by: Abdoulaye Oneal M.D. 12/07/2018 5:[address] head/brain wo con CLINICAL HISTORY: 33 years-old Female with left face droop. Acute left-sided facial droop TECHNIQUE: Multiple axial CT images of the head were obtained without contrast. A dose lowering technique was utilized adhering to the principles of ALARA. CT DOSE: 537.48 mGy.cm COMPARISON: MRI brain of same day. FINDINGS: Ill-defined moderate sized hypodensity about the right frontal lobe, image 11 series 2 with blurring of the graf-white interface. Additional ill-defined hypodensity about the centrum semiovale and agustin radiata right frontal lobe. No acute intracranial hemorrhage, midline shift or abnormal extra-axial collections. Ventricles, cisterns and sulci otherwise appear unremarkable. The calvarium is intact. The paranasal sinuses, mastoid air cells, and middle ear cavities are clear. IMPRESSION: Moderate sized acute infarction of the right frontal lobe, better characterized and described on comparison brain MRI of same day. The above report was generated using voice recognition software. It may contain grammatical, syntax or spelling errors. Electronically signed by: David Pace M.D. 12/07/2018 6:32 PM MR brain wo con HISTORY: 33 years-old Female left facial weakness acute left-sided facial droop with headache COMPARISON: None available TECHNIQUE: Multiplanar multisequence MRI of the brain was obtained without the use of IV contrast FINDINGS: Controller Repairer And Tester localizer images demonstrate no gross extracranial abnormality. Midline structures including the corpus callosum, brainstem, optic chiasm, pituitary and pineal glands appear unremarkable on the sagittal T1 series. No cerebellar tonsillar herniation. Imaged cervical spine appears unremarkable. There is a moderate sized acute infarction about the right frontal lobe with extension into the agustin radiata and centrum semiovale measuring up to 3.2 x 2.6 cm in AP and transverse dimension. Markedly decreased signal on the ADC map within this area with mildly increased FLAIR signal. Brain parenchyma otherwise appears unremarkable without additional infarction or abnormal T2/FLAIR signal. No acute intracranial hemorrhage, midline shift, abnormal extra axial collections, hydrocephalus or intracranial mass. Major flow voids appear patent. Mild mucosal thickening about the maxillary sinuses. Mastoid air cells appear clear. The orbits, skull and soft tissues are also within normal limits. IMPRESSION: Moderate acute infarction about the right frontal lobe with extension into the right frontal lobe agustin radiata and centrum semiovale. No associated acute intracranial hemorrhage, midline shift or hydrocephalus. The above report was generated using voice recognition software. It may contain grammatical, syntax or spelling errors. Electronically signed by: David Pace M.D. 12/07/2018 6:[address] angio neck with con CLINICAL HISTORY: 33 years-old Female presenting with cva. TECHNIQUE: Multidetector CT angiography of the neck was performed after the administration of intravenous contrast. 3-D volumetric and/or maximum intensity projection (MIP) images were subsequently reconstructed for review. IV contrast : 119 mL of Optiray 320. One or more dose lowering techniques were used consistent with the principles of ALARA (as low as reasonably achievable), including automatic exposure control, mA or kV adjustment to individual patient size, and/or use of iterative reconstruction. Stenosis measurements were based on NASCET-like criteria (distal lumen diameter as the denominator for stenosis measurement). COMPARISON: MR brain from earlier today. CT DOSE (mGy.cm): The estimated cumulative dose is 549.05. FINDINGS: Controller Repairer And Tester topogram: Unremarkable. Aortic arch: Normal three-vessel aortic arch with patent origins of the branch vessels. Innominate artery: Patent. Right subclavian artery: Patent. Right common carotid artery: Patent. Right internal and external carotid arteries: Right carotid bifurcation patent. Right internal and external carotid arteries widely patent. Left common carotid artery: Patent. Left internal and external carotid arteries: Left carotid bifurcation patent. Left internal and external carotid arteries widely patent. Left subclavian artery: Patent. Vertebral arteries: Codominant vertebral arteries. Origins and courses of the bilateral vertebral arteries patent. Other: Limited intracranial evaluation within normal limits. Soft tissues of the neck normal allowing for the phase of contrast. Normal cervical spine. Lung apices clear. IMPRESSION: 1. No evidence of dissection, focal vessel occlusion, or significant stenosis of the cervical arteries. Electronically signed by: Abdoulaye Oneal M.D. 12/07/2018 7:[address] angio head w con CLINICAL HISTORY: 33 years-old Female presenting with cva, left facial weakness with acute left-sided facial droop and headache. TECHNIQUE: Multidetector CT angiography of the head was performed after the administration of intravenous contrast. 3-D volumetric and/or maximum intensity projection (MIP) images were subsequently reconstructed for review. IV contrast : 119 mL of Optiray 320. One or more dose lowering techniques were used consistent with the principles of ALARA (as low as reasonably achievable), including automatic exposure control, mA or kV adjustment to individual patient size, and/or use of iterative reconstruction. COMPARISON: Noncontrast CT head and MR brain performed earlier today. CT DOSE (mGy.cm): The estimated cumulative dose is 549.05 mGy.cm. FINDINGS: Controller Repairer And Tester topogram: Unremarkable. Anterior circulation: Intracranial portions of the internal carotid arteries patent to the level of the termini. Anterior cerebral arteries patent. Middle cerebral arteries patent. Anterior communicating artery patent. Posterior circulation: Codominant vertebral arteries. Intradural portions of the vertebral arteries patent. Posterior inferior cerebellar arteries patent. Basilar artery patent. Anterior inferior cerebellar arteries poorly visualized. Superior cerebellar arteries patent. origin or near origin of the left posterior cerebral artery. Right posterior cerebral artery patent with a normal morphology. Right posterior communicating artery hypoplastic or aplastic. Dural venous sinuses: Patent. Other: Allowing for the phase of contrast, brain parenchyma within normal limits. Calvarium intact. IMPRESSION: 1. No evidence of aneurysm, focal vessel occlusion, or significant stenosis of the intracranial arteries. Electronically signed by: Abdoulaye Oneal M.D. 12/07/2018 7:35 PM ECG Data Attestation: I personally reviewed and interpreted this ECG as follows: Indication: other (stroke symptoms) Rate (beats per minute): 80 Rhythm: normal sinus Findings: no ST elevation and no ectopy Blood Pressure Blood Pressure Findings: Normal blood pressure Blood Pressure Disposition: did not require urgent referral MDM Narrative This is a 33-year-old female who presents to the ED with a chief complaint of left sided facial droop. The patient's symptoms were first noticed around 11 AM today. 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 Some of her coworkers noticed some left-sided facial drooping. The patient did not think much of it. During the day, the patient was skyping her coworkers and her text did not make sense. She also sent some text messages to her that did not make sense. The patient also was working as a investment banking manager and was not working as quickly as normal and seemed to be confused with some of the money. The patient was brought to the emergency department by coworker. On exam, the patient has a mild left- sided facial droop. She otherwise does not have any focal findings. A CT scan of the brain as well as an MRI of the brain reveals moderate acute infarct of the right frontal lobe with extension into the right frontal lobe agustin radiata as well as a central semi-ovale. CT angiogram of the head and neck did not show acute abnormality. EKG shows normal sinus rhythm. Chest x-ray was negative for acute disease. Blood work was otherwise unremarkable. Urine is suggestive of infection but the patient is currently on treatment for UTI. The patient's vital signs here are stable. She is afebrile. She was told the results of the test. I spoke with Dr. Maher who did not feel the patient needed to be transferred and that she could be admitted here. She was given aspirin p.o. Impression & Plan CVA (cerebral vascular accident) Discharge Plan Visit Data Chief Complaint: Stroke/CVA Symptoms Stated Complaint: FACIAL DROOP, HEADACHE, SLURRED SPEECH ED Provider: Ken Espino Discharge Problem: CVA (cerebral vascular accident) Patient Disposition: Being Evaluated by Hospitalist Forms Stand Alone Forms: My [facility] [employer] Prescriptions Prescriptions: No Action sulfamethoxazole-trimethoprim 800-160 mg tablet 1 tab PO BID RF: 0 Referrals Referrals: PCP,NO [Primary Care Provider] - The scribe's documentation has been prepared under my direction and personally reviewed by me in its entirety. I confirm that the note above accurately reflects all work, treatment, procedures, and medical decision making performed by me.
[2018-12-07] MEDS ORDERED: NITROGLYCERIN SL 0.4 MG/TAB TAB SL PRN (22:22)
[2018-12-07] MEDS ORDERED: ALUMINUM/MAGNESIUM SUSP 30 ML UDC PO PRN (22:22)
[2018-12-07] MEDS ORDERED: ONDANSETRON INJ 2 MG/ML 2 ML VIAL IV PRN (22:22)
[2018-12-07] MEDS ORDERED: PHARMACIST DISCHARGE MED REC CONSULT PRN (22:22)
[2018-12-07] MEDS ORDERED: ACETAMINOPHEN 325 MG TAB PO PRN (22:22)
[2018-12-07] MEDS: SODIUM CHLORIDE 0.9% 1000ML 1,000 ML IV SCH (22:47)
--- NOTE | 2018-12-07 23:17 | History & Physical Report ---
Date of Service December 07, 2018 Stroke like symptoms Assessment & Plan (1) CVA (cerebral vascular accident): CVA: 33f presented with right facial droop and confusion at work place. Works as personal banking advisor. Was slow at work and was having difficulty counting. Also on computer was mixing numbers and letters. First noticed by coworkers around 11am.Currently has some right facial droop. speech clear. Oriented x 3. Could substract 100-[address] head and MRI shows moderate right frontal infarct. No hx of DM or HTN. Hx of hereditary spherocytosis s/p spleenectomy at age 5. Patients can have complications with arterial and venous thrombosis with hx of hereditary spherocytosis will send for hypercoaguable workup echo with bubble study started on aspirin and lipitor follow lipid profile speech evaluation pt/ot neurology consult close monitor in tele Present on Admission?: Yes (2) Spherocytosis, hereditary: s/p spleenectomy at age 5 Present on Admission?: No (3) UTI (urinary tract infection): recently started on bactrim Present on Admission?: Yes History of Present Illness Chief Complaint: Stroke like symptoms Primary Care Provider: NO PCP This is a 33-year-old female with past medical history significant for hereditary spherocytosis status post splenectomy at age of 5 history of kidney stones and history of UTI currently on Bactrim for recent UTI was brought in because of strokelike symptoms. 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 Today at around 11 AM her coworkers noticed she seemed slow than her usual. She was taking notes in the computer and she seemed to mix up with numbers and letters. Was mixed mixing up with counting. She also texted her which did not make any sense. She is also sleeping at the desk. So she was brought to the ER. In the ER CT scan showed moderate size infarct in the right frontal lobe. MRI also showed the same. The ER physician talked to the [place] stroke neurologist and was advised to get CT of the head and neck and if the scans are unremarkable to admit in the local hospital. CTA of the head and neck did not showed any acute findings. Currently patient is resting comfortably and hemodynamically stable. , mother, brother and family is in the room. Speech is clear. She is swallowing okay. Denies any headaches or blurred visions. No chest pain or shortness of breath. No nausea or vomiting. No abdominal pain. Was able to substact 100-7, but could not do further. Otherwise alert and oriented x3 and will be follow commands. Allergies Allergy/AdvReac Type Severity Reaction Status Date / Time cefaclor Allergy Unknown Unknown Verified 12/07/18 18:37 Home Medications Home Medications Medication Instructions Recorded Confirmed Type sulfamethoxazole-trimethoprim 1 tab PO BID 12/07/18 12/07/18 History Past Med/Surg History Medical History Hereditary spherocytosis Kidney stones No known health problems UTI (urinary tract infection) Surgical History H/O splenectomy Family History Other TIA (transient ischemic attack) Social History Current Living Situation: Spouse Other Information That Helps Us Care for You: No Feels Safe at Home: Yes Safety Concerns: Feels Safe At This Time Smoking Status: Never smoker Do You Dip or Chew Tobacco: No Second Hand Exposure: No Tobacco Cessation Education Requested by Patient: No Hx Alcohol Use: No Hx Substance Use: No Beliefs That Will Affect Care: None Preferred Language: Persian Communication Ability: Effective Manufacturing Coordinator Required: No Review of Systems Constitutional- no fever; Eyes- no acute visual changes ENT- no sinus drainage; Pulmonary- no cough, no shortness of breath Cardiac- no chest pain,no dependent edema GI- no nausea, no vomiting, no melena, no hematochezia - normal bladder movements Derm- no rashes Neuro- no headaches Physical Exam 2 Vital Signs (Past 24 Hours): Last Vital Signs Temp 36.7 C 12/07/18 22:27 Pulse 83 12/07/18 22:27 Resp 20 12/07/18 22:27 BP 138/81 12/07/18 22:27 Pulse Ox 94 12/07/18 22:27 Physical Exam: General- Not in distress Head- atraumatic Mild right facial droop present Eyes- PERRL, no pallor anicteric ENT- oropharynx clear Neck- supple, no JVD, no adenopathy, no thyromegaly; carotids +2/2, no bruits appreciated Lungs- clear to auscultation and percussion Heart- regular rhythm; no murmur, no gallop, Abdomen- normal bowel sounds, soft, nontender, no masses Extremities- no pretibial edema, no erythema Neuro- alert, oriented x 3; PERRL, EOMI; right facial droop present ; no dysarthria; motor 5/5 bilaterally; finger to nose intact bilaterally, No pronator drift, sensations intact, position sense intact Skin- warm & dry Results & Data Laboratory Results Laboratory Results - last 24 hr 12/07/18 12/07/18 12/07/18 17:45 17:45 17:45 WBC 14.60 H RBC 5.09 Hgb 15.6 Hct 44.9 MCV 88.2 MCH 30.6 MCHC 34.7 RDW Std Deviation 45.3 RDW Coeff of Paulina 14.0 Plt Count 419 H MPV 10.1 Immature Gran % (Auto) 0.6 Neut % (Auto) 75.4 Lymph % (Auto) 16.7 Lipscomb % (Auto) 6.4 Eos % (Auto) 0.6 Baso % (Auto) 0.3 Immature Gran # (Auto) 0.09 H Neut # (Auto) 11.00 H Lymph # (Auto) 2.44 Lipscomb # (Auto) 0.93 H Eos # (Auto) 0.09 Baso # (Auto) 0.05 PT Cancelled INR Cancelled Sodium 133 L Potassium Chloride 100 Carbon Dioxide 27 Anion Gap 6.0 BUN 11 Creatinine 0.70 Est Cr Clr Drug Dosing 136.0 Est GFR ( Amer) 131.9 Est GFR (Non-Af Amer) 113.8 BUN/Creatinine Ratio 16.5 Glucose 271 H POC Glucose Calcium 8.9 Total Bilirubin 0.8 AST ALT 25 Alkaline Phosphatase 122 H Total Protein 7.9 Albumin 3.7 Globulin 4.2 H Albumin/Globulin Ratio 0.9 TSH 1.930 Urine Color Urine Appearance Urine pH Ur Specific [place] Urine Protein Urine Glucose (UA) Urine Ketones Urine Blood Urine Nitrite Urine Bilirubin Urine Urobilinogen Ur Leukocyte Esterase Urine WBC (Auto) Urine RBC (Auto) U Hyaline Cast (Auto) U Epithel Cells (Auto) Urine Bacteria (Auto) POC Ur Test 12/07/18 12/07/18 12/07/18 17:45 17:50 17:50 WBC RBC Hgb Hct MCV MCH MCHC RDW Std Deviation RDW Coeff of Paulina Plt Count MPV Immature Gran % (Auto) Neut % (Auto) Lymph % (Auto) Lipscomb % (Auto) Eos % (Auto) Baso % (Auto) Immature Gran # (Auto) Neut # (Auto) Lymph # (Auto) Lipscomb # (Auto) Eos # (Auto) Baso # (Auto) PT INR Sodium Potassium Chloride Carbon Dioxide Anion Gap BUN Creatinine Est Cr Clr Drug Dosing Est GFR ( Amer) Est GFR (Non-Af Amer) BUN/Creatinine Ratio Glucose POC Glucose 286 H Calcium Total Bilirubin AST ALT Alkaline Phosphatase Total Protein Albumin Globulin Albumin/Globulin Ratio TSH Urine Color Dark Yellow Urine Appearance Clear Urine pH 5.5 Ur Specific [place] 1.044 H Urine Protein Negative Urine Glucose (UA) 3+ H Urine Ketones 1+ H Urine Blood Trace H Urine Nitrite Positive H Urine Bilirubin Negative Urine Urobilinogen Negative Ur Leukocyte Esterase Negative Urine WBC (Auto) 1-5 Urine RBC (Auto) 0-4 U Hyaline Cast (Auto) 1-5 U Epithel Cells (Auto) >30 H Urine Bacteria (Auto) Negative POC Ur Test NEG Diagnostic Findings BRAIN MRI: Moderate acute infarction about the right frontal lobe with extension into the right frontal lobe agustin radiata and centrum semiovale. No associated acute intracranial hemorrhage, midline shift or hydrocephalus. CT HEAD: Moderate sized acute infarction of the right frontal lobe, better characterized and described on comparison brain MRI of same day. CXR: 1. No acute cardiopulmonary disease. CTA HEAD: 1. No evidence of aneurysm, focal vessel occlusion, or significant stenosis of the intracranial arteries. CTA NECK: 1. No evidence of dissection, focal vessel occlusion, or significant stenosis of the cervical arteries. ECG Additional Comments: ECG: Normal sinus rhythm at the rate of 80. No acute St changes seen. Code Status & VTE Plan Code Status Full Code VTE Prophylaxis Plan VTE Prophylaxis will be ordered: Yes _ (1) CVA (cerebral vascular accident) CVA mechanism: unspecified Laterality of affected vessel: Precerebral and cerebral artery: Qualified Code(s): I63.9 - Cerebral infarction, unspecified
[2018-12-08 07:24] LABS: Basophils # (auto) 0.03 K/uL (0-0.2); Basophils % (auto) 0.2 %; Eosinophils % (auto) 0.7 %; Hematocrit (blood only) 43.6 % (37-47); Immature Granulocytes # (auto) 0.08 K/uL (0.00-0.02); Immature Granulocytes % (auto) 0.5 %; Lymphocytes % (auto) 18.1 %; Mean Corpuscular Hgb Conc 34.4 g/dL (32-36); Monocytes # (auto) 0.65 K/uL (0.11-0.59); Monocytes % (auto) 4.4 %; Neutrophils # (auto) 11.32 K/uL (1.4-6.5); Neutrophils % (auto) 76.1 %; Platelet Count 453 K/uL (130-400); RDW Coefficient of Variation 13.9 % (11.5-14.5); RDW Standard Deviation 45.5 fL (36.4-46.3); White Blood Count 14.88 K/uL (4.8-10.8)
[2018-12-08] MEDS: ASPIRIN 81 MG ECTAB PO SCH (07:31)
[2018-12-08] MEDS: ATORVASTATIN 40 MG TAB PO SCH (07:32)
[2018-12-08 07:41] LABS: Estimated Average Glucose 269 mg/dl
[2018-12-08 08:00] LABS: BUN Creatinine Ratio 17.6 (10-20); Calcium 8.5 mg/dl (8.5-10.1); Creatinine Clr Calc Pharmacy 166.4 ml/min; Est GFR (African American) 141.2; Est GFR (Non-African American) 121.8; Potassium 3.7 mmol/L (3.5-5.1)
[2018-12-08] MEDS ORDERED: SULFAMETHOXAZOLE/TRIMETHOPRIM DS 800/160MG TAB PO SCH ×2 (09:00→14:01)
--- NOTE | 2018-12-08 10:21 | Neurology Consultation ---
Date of Consultation December 08, 2018 Acute Right MCA ischemic Stroke Hereditary Spherocytosis Left Facial droop Dysarthria Aphasia UTI Newly diagnosed Diabetes (HA1c 11) A 33 year old woman with history of hereditary spherocytosis s/p splenectomy admitted with acute right mca ischemic stroke. LKN around 11 AM yesterday. Patient did not recieve TPA. CTA head and neck were Normal. MRI vahid showed a moderate acute infarction about the right frontal lobe with extension into the right fronta l lobe agustin radiata and centrum semiovale. PAtient was recently started on Bactrim for UTI and found to have HA1c 11 on admission. NIHSS 2 for dysarthria and left facial droop. - Unclear Etiology. Risk factors: Hereditary spherocytosis and Uncontrolled diabetes. Possible dehydration in the setting of Newly diagnosed diabetes and UTI. CTA negative for carotid dissection or vascular abnormality. She is not on OCP. Migrainousis infarct? - Agree with starting ASA 81 mg daily and high intensity statin, Lipitor 40 mg daily - Hypercoaguable studies ordered and in Process - Recommend MRV for evaluate for CVT - Please check ESR - Recommend cardiology consulation for KENNA - Given her history of HS and family history of clots I would recommend LE venous dopplers - Recommend IVF 75 cc/hr - Recommend benadryl 25 mg IV Q8hr PRN and Reglan 10 mg IV Q8hr prn for migraine - Continue Telemetry Will continue to follow. Please call me with any questions. History of Present Illness Attending Physician: Radha Cai DO A 33 year old woman presented to the ED yesterday with left facial droop and language deficits noted at work yesterday around 11 AM. No history of stroke. Non smoker. She works as a banking representative. She has a history of herediatry spherocytosis s/p splenectomy at the age of 5. She denies history of stroke or DC or blood clots. SHe has a history of migraine headaches. Not on daily medications. Works at [employer]. Has one child. Family history of HS. She reports being healthy. Noted to have left facial droop although it did not bother her yesterday. She had trouble exchanging money and noted to have some language or speech difficulty yesterday. Coworkers ask her to go to the ED. On arrival found to have right frontal acute CVA. No tpa as pt was outside the window. SHe does report having a headache yesterday but different than her migraines. She also reports prolonged menstrual bleeding and fatigue. Feels ok now but having a migraine. Denies speech problems. at bedside. Allergies Allergy/AdvReac Type Severity Reaction Status Date / Time cefaclor Allergy Unknown Unknown Verified 12/07/18 18:37 Home Medications Home Medications Medication Instructions Recorded Confirmed Type sulfamethoxazole-trimethoprim 1 tab PO BID 12/07/18 12/07/18 History Patient History Medical History Hereditary spherocytosis Kidney stones No known health problems UTI (urinary tract infection) Surgical History H/O splenectomy Family History Other TIA (transient ischemic attack) Social History Current Living Situation: Spouse Other Information That Helps Us Care for You: No Feels Safe at Home: Yes Safety Concerns: Feels Safe At This Time Smoking Status: Never smoker Do You Dip or Chew Tobacco: No Second Hand Exposure: No Tobacco Cessation Education Requested by Patient: No Hx Alcohol Use: No Hx Substance Use: No Beliefs That Will Affect Care: None Communication Ability: Effective Physical Exam 2 Vital Signs (Past 24 Hours): Last Vital Signs Temp 36.9 C 12/08/18 04:20 Pulse 79 12/08/18 04:20 Resp 15 12/08/18 04:20 BP 132/76 12/08/18 04:20 Pulse Ox 95 12/08/18 04:20 Physical Exam: EXAM: Constitutional: appearance normally developed, well nourished and non-obese Head and Face: normocephalic and atraumatic Eyes: normal lids, normal conjunctiva Neck: supple Respiratory: normal effort Cardiovascular: regular rhythm and normal pulses Abdomen: non distended Skin: no rashes, lesions, or ulcers noted Psychiatric: normal judgement and insight, normal mood and normal affect NEUROLOGIC EXAMINATION: Appearance: no acute distress Orientation: awake, alert and oriented x 3 Mental Status: alert Memory: registration 3/3 and recall 3/3 Attention: normal Knowledge: appropriate Language: no aphasia Speech: mild dysarthria Cranial Nerves: CN 2 - no visual defect on confrontation and pupils round, equal, reactive to light CN 3, 4, 6 - extra-ocular movements intact and no nystagmus CN 5 - facial sensation intact CN 7 - left facial droop CN 8 - intact hearing CN 9, 10 - palate symmetric CN 11 - good shoulder shrug CN 12 - tongue midline Gait: deferred Coordination: no ataxia with finger to nose testing and heel to raygoza testing Sensory: intact and symmetric to pinprick, light touch, vibration and joint position Muscle Tone: normal Muscle exam: 5/5 throughout Reflexes: 2+ at the knees, no clonus Results & Data Diagnostic Findings MRI brain on 12/07/2018: Moderate acute rigth frontal lobe ischemic stroke with extension into the right agustin radiata CTA head and Neck: no large vessel oclussion, dissection, or vascular abnormality noted.
--- NOTE | 2018-12-08 11:42 | Hospitalist Progress Note ---
Date of Service December 08, 2018 Assessment & Plan (1) CVA (cerebral vascular accident): Uncertain etiology, she has new onset uncontrolled diabetes and a h/o hereditary spherocytosis. She also notes that her father has a h/o blood clots and diabetes. She is recovering well from the stroke. She is ambulating and eating without issue and is mentating at baseline. SEcondray prevention wtih statin and ASA for now. Hypercoagulable workup is pending. Echo and carotid ultrasound pending. Discussed case with Neuro who also wants MRV brain, bilateral LE dopplers, and to discuss KENNA with cardiology. (2) Spherocytosis, hereditary: s/p splenectomy at age 5 (3) UTI (urinary tract infection): Started on Bactrim earlier this week. Finish today which is around Day 5 or 6 and then stop. Pt is currently asymptomatic from that standpoint. (4) Migraines: Currently has a headache. Per Neuro will give Reglan 10mg IV and Benadryl 25mg IV q8hr PRN. (5) DVT prophylaxis: Lovenox 40mg PO daily Full Dispo-pending multiple studies, likely early next week. Radha Cai DO [facility] Hospitalist Subjective 33 yo F with new onset CVA presents with new onset frontal stroke. She recently had a UTI and has been treated since Mon/Mon (5 to 6 days ago) with Bactrim and is asymtpomatic. She reports a headache since admission and has a h /o migraines. She denies any visual changes, difficulty swallowing, difficulty walking or other issues at this time. Father has a h/o diabetes which is a new diagnosis for her. We discussed the pathophysiology, treatment, screening, diet and lifestyle modifications for diabetes and spent approximately 20 minutes reviewing this with she and her . Physical Exam 2 Vital Signs (Past 24 Hours): Last Vital Signs Temp 36.9 C 12/08/18 04:20 Pulse 78 12/08/18 08:00 Resp 15 12/08/18 04:20 BP 132/76 12/08/18 04:20 Pulse Ox 95 12/08/18 04:20 CONSTITUTIONAL: WNWD, vitals as above, generally well-appearing EYES: EOMI bilaterally, PERRL, normal conjuctivae, no scleral icterus ENT: MMM RESPIRATORY: clear to auscultation bilaterally, no crackles, rales or wheezes, normal respiratory effort CARDIOVASCULAR: regular rate and rhythm, S1 and 2 heard without murmurs, gallops or rubs, no JVD, no peripheral edema GASTROINTESTINAL: soft, nontender, nondistended MUSCULOSKELETAL: strength 5/5 throughout, head is normocephalic and atraumatic , no focal deficits. SKIN: warm and dry NEUROLOGIC: PERRL, EOMI, mild L facial droop, no dysarthria. CN 2-12 grossly intact, no sensory deficit, normal cognition, normal speech, no tremor PSYCHIATRIC: alert cooperative and oriented to person, place and time. Euthymic mood, makes good eye contact, language grossly intact, recent and remote memory grossly intact. Results & Data Laboratory Results Short CBC 12/07/18 12/08/18 Range/Units 17:45 06:56 WBC 14.60 H 14.88 H (4.8-10.8) K/uL Hgb 15.6 15.0 (12.0-16.0) g/dL Hct 44.9 43.6 (37-47) % Plt Count 419 H 453 H (130-400) K/uL BMP 12/07/18 12/08/18 17:45 06:56 Sodium 133 L 135 L Potassium 3.7 Chloride 100 103 Carbon Dioxide 27 25 BUN 11 10 Creatinine 0.70 0.57 L Glucose 271 H 238 H Calcium 8.9 8.5 Liver Function 12/07/18 Range/Units 17:45 Total Bilirubin 0.8 (0.2-1) mg/dl AST (15-37) U/L ALT 25 (12-78) U/L Alkaline Phosphatase 122 H (45-117) U/L Albumin 3.7 (3.4-5.0) gm/dl Urine 12/07/18 Range/Units 17:50 Urine Color Dark Yellow Urine Appearance Clear (Clear) Urine pH 5.5 (4.5-7.5) Ur Specific [place] 1.044 H (1.000-1.030) Urine Protein Negative (Negative) Urine Glucose (UA) 3+ H (Negative) Medications Administered Current Inpatient Medications Acetaminophen (Tylenol) 650 mg PO Q4H PRN PRN Reason: Pain or Fever Stop: 01/06/19 22:21 Al Hydrox/Mg Hydrox/Simethicone (Maalox) 15 ml PO Q4H PRN PRN Reason: Dyspepsia Stop: 01/06/19 22:21 Aspirin (Ecotrin Ectab) 81 mg PO QAM [facility] Stop: 01/07/19 08:59 Last Admin: 12/08/18 07:31 Dose: 81 mg Atorvastatin Calcium (Lipitor) 40 mg PO QAM [facility] Stop: 01/07/19 08:59 Last Admin: 12/08/18 07:32 Dose: 40 mg Dextrose (Dextrose 50%) 25 - 50 ml IV UD PRN; Protocol PRN Reason: Hypoglycemia Protocol Stop: 01/07/19 12:37 Glucagon (Glucagen) 1 mg SQ UD PRN; Protocol PRN Reason: Hypoglycemia Protocol Stop: 01/07/19 12:37 Glucose (Glucose 40%) 15 - 30 gm PO UD PRN; Protocol PRN Reason: Hypoglycemia Protocol Stop: 01/07/19 12:37 Glucose (Dex4 Glucose) 4 - 8 tabs PO UD PRN; Protocol PRN Reason: Hypoglycemia Protocol Stop: 01/07/19 12:37 Insulin Aspart (Novolog Flexpen) 0 units SC ACHS [facility] Stop: 01/07/19 16:29 Insulin Glargine (Lantus Solostar Pen) 10 units SC HS [facility] Stop: 01/07/19 20:59 Miscellaneous (Carbohydrates For Hypoglycemia) 15 - 30 gm PO UD PRN PRN Reason: Hypoglycemia Treatment Stop: 01/07/19 12:37 Miscellaneous Information (Pharmacist Discharge Med Rec Consult) 1 ea N/A UD PRN PRN Reason: Consult Stop: 01/06/19 22:21 Nitroglycerin (Nitrostat) 0.4 mg SL UD PRN PRN Reason: Chest Pain Stop: 01/06/19 22:21 Ondansetron HCl (Zofran) 4 mg IV Q6H PRN PRN Reason: Nausea Stop: 01/06/19 22:21 Trimethoprim/Sulfamethoxazole (Septra Ds 800/160mg Tab) 1 tab PO BID [facility] Stop: 12/09/18 06:00 _ (1) CVA (cerebral vascular accident) CVA mechanism: unspecified Laterality of affected vessel: Precerebral and cerebral artery: Qualified Code(s): I63.9 - Cerebral infarction, unspecified
[2018-12-08] MEDS: SODIUM CHLORIDE 0.9% 1000ML 1,000 ML IV SCH (12:15)
[2018-12-08] MEDS ORDERED: DEXTROSE 50% 50 ML SYRINGE IV PRN (12:38)
[2018-12-08] MEDS ORDERED: CARBOHYDRATES FOR HYPOGLYCEMIA PO PRN (12:38)
[2018-12-08] MEDS ORDERED: GLUCOSE 10 TABS/TUBE PO PRN (12:38)
[2018-12-08] MEDS ORDERED: GLUCAGON FOR INJ 1 MG VIAL SQ PRN (12:38)
[2018-12-08] MEDS ORDERED: GLUCOSE 40% GEL 15 GM TUBE PO PRN (12:38)
[2018-12-08] MEDS ORDERED: METOCLOPRAMIDE HCL INJ 5 MG/ML 2 ML VIAL IV PRN (14:37)
[2018-12-08] MEDS ORDERED: DiphenhydrAMINE HCL 50 MG/ML VIAL IV STA (14:38)
[2018-12-08] MEDS ORDERED: METOCLOPRAMIDE HCL INJ 5 MG/ML 2 ML VIAL IM STA (14:38)
[2018-12-08] MEDS ORDERED: Nursing to Pharmacy Communication ONE (15:11)
[2018-12-08] MEDS ORDERED: METOCLOPRAMIDE HCL INJ 5 MG/ML 2 ML VIAL IV STA (15:14)
--- NOTE | 2018-12-08 16:57 | Ultrasound Report ---
BILATERAL LOWER EXTREMITY VENOUS DOPPLER HISTORY: Acute strokelike symptoms stroke in pt with spherocytosis COMPARISON STUDY: None. FINDINGS: Study is mildly limited secondary to patient body habitus. There is normal compressibility, flow, and augmentation within the bilateral lower extremity deep venous systems. IMPRESSION: No sonographic evidence of deep venous thrombosis within the right or left lower extremity. Electronically signed by: David Pace M.D. 12/08/2018 4:56 PM
--- NOTE | 2018-12-08 17:34 | Magnetic Resonance Report ---
MR venography head wo con HISTORY: 33 years-old Female hereditary spherocytosis and acute stroke acute infarction of the right frontal lobe in a patient with history of hereditary spherocytosis COMPARISON: MRI brain 12/07/2018 TECHNIQUE: MRV was obtained without the use of IV contrast. FINDINGS: Large [id number] 3d designer localizer images demonstrate no gross abnormality. Major cerebral venous si nuses appear patent. No evidence of cerebral venous thrombosis. IMPRESSION: No evidence of cerebral venous thrombosis. The above report was generated using voice recognition software. It may contain grammatical, syntax o r spelling errors. Electronically signed by: David Pace M.D. 12/08/2018 5:32 PM
[2018-12-08] MEDS: INSULIN ASPART 100 UNITS/ML 3 ML PEN SC SCH ×2 (17:41→20:28)
[2018-12-08] MEDS ORDERED: INSULIN GLARGINE SOLOSTAR 100 UNITS/ML 3 ML PEN SC SCH (21:00)
[2018-12-09 07:16] LABS: Basophils # (auto) 0.05 K/uL (0-0.2); Basophils % (auto) 0.3 %; Eosinophils # (auto) 0.11 K/uL (0-0.5); Eosinophils % (auto) 0.7 %; Hematocrit (blood only) 43.3 % (37-47); Hemoglobin 14.7 g/dL (12.0-16.0); Immature Granulocytes # (auto) 0.11 K/uL (0.00-0.02); Immature Granulocytes % (auto) 0.7 %; Lymphocytes # (auto) 2.98 K/uL (1.2-3.4); Lymphocytes % (auto) 18.9 %; Mean Corpuscular Hgb Conc 33.9 g/dL (32-36); Mean Corpuscular Volume 89.3 fL (80-100); Mean Platelet Volume 10.2 fL (7.4-10.4); Monocytes % (auto) 7.6 %; Neutrophils # (auto) 11.32 K/uL (1.4-6.5); Neutrophils % (auto) 71.8 %; Platelet Count 461 K/uL (130-400); RDW Coefficient of Variation 14.1 % (11.5-14.5); RDW Standard Deviation 45.9 fL (36.4-46.3); Red Blood Count 4.85 M/uL (4.2-5.4); White Blood Count 15.77 K/uL (4.8-10.8)
[2018-12-09 07:41] LABS: BUN Creatinine Ratio 25.7 (10-20); Calcium 8.9 mg/dl (8.5-10.1); Est GFR (Non-African American) 122.5; Potassium 3.6 mmol/L (3.5-5.1)
[2018-12-09] MEDS: DiphenhydrAMINE HCL 50 MG/ML VIAL IV PRN ×2 (08:17→17:03)
[2018-12-09] MEDS: ATORVASTATIN 40 MG TAB PO SCH (08:19)
[2018-12-09] MEDS: ASPIRIN 81 MG ECTAB PO SCH (08:20)
[2018-12-09] MEDS: INSULIN ASPART 100 UNITS/ML 3 ML PEN SC SCH ×4 (08:21→20:43)
--- NOTE | 2018-12-09 09:34 | Neurology Progress Note ---
Date of Service December 09, 2018 Acute Right MCA ischemic Stroke Hereditary Spherocytosis Left Facial droop Migraine headache with/without aura Menorrhagia Newly diagnosed Diabetes (HA1c 11) A 33 year old woman with history of hereditary spherocytosis s/p splenectomy admitted with acute right mca ischemic stroke. LKN around 11 AM on 12/07/2018. Patient did not recieve TPA. CTA head and neck were Normal. MRI brain showed a moderate acute infarction about the right frontal lobe with extension into the right fronta l lobe agustin radiata and centrum semiovale. - Unclear Etiology. Idiopathic Vs Herediatry spherocytosis - Patient does have a history of migraine with visual aura. Denies aura on the day of her CVA. - She is not on OCP and is a non smoker. I recommend she avoid OCP or discuss with complex human resources manager prior to starting one. -CTA negative for carotid dissection or vascular abnormality. MRV Negative for CVT. Venous Duplex negative for DVT - Continue ASA 81 mg daily and high intensity statin, Lipitor 40 mg daily - Hypercoaguable studies PENDING - ESR Normal - TTE showed normal EF. No cariac shunt. No cardiac source of embolis. - KENNA scheduled for tomorrow. Appreciate cardiology help. - Patient continues to have daily menstrual bleeding and is concerning. Starting ASA now. Consider consulting Analysis Intern for recommendations. - Given history of HS and acute stroke would recommend discussing with Hem/Onc. May need to follow up with them as outpatient. - Will defer to primary regarding diabetes management. Recommend diabetic education. Ha1c<7. Will need to establish with PCP or endocrine. Disposition: Intent to discharge tomorrow after KENNA is completed. Will need Zio as outpatient. Will arrange for patient to follow up with myself in 8-weeks. Please call me with any further questions. Subjective Patient was seen and examined. Patient at bedside. Patient has been sleepy. Denies any weakness or numbness. Denies speech difficulty. Hoping to go home tomorrow after KENNA. She continues to have menstrual bleeding. Physical Exam 2 Vital Signs (Past 24 Hours): Last Vital Signs Temp 37.1 C 12/09/18 06:53 Pulse 72 12/09/18 06:53 Resp 15 12/09/18 06:53 BP 133/78 12/09/18 06:53 Pulse Ox 94 12/09/18 06:53 Physical Exam: Constitutional: appearance normally developed, well nourished and non-obese Head and Face: normocephalic and atraumatic Eyes: normal lids, normal conjunctiva Neck: supple Respiratory: normal effort Cardiovascular: regular rhythm and normal pulses Abdomen: non distended Skin: no rashes, lesions, or ulcers noted Psychiatric: normal judgement and insight, normal mood and normal affect NEUROLOGIC EXAMINATION: Appearance: no acute distress Orientation: awake, alert and oriented x 3 Mental Status: alert Memory: registration 3/ and recall 3/3 Attention: normal Knowledge: appropriate Language: no aphasia Speech: no dysarthria Cranial Nerves: CN 2 - no visual defect on confrontation and pupils round, equal, reactive to light CN 3, 4, 6 - extra-ocular movements intact and no nystagmus CN 5 - facial sensation intact CN 7 - mild left facial droop CN 8 - intact hearing CN 9, 10 - palate symmetric CN 11 - good shoulder shrug CN 12 - tongue midline Gait: deferred Coordination: no ataxia with finger to nose testing , no tremor or dyskinesias Sensory: intact to light touch Muscle Tone: normal Muscle exam: 5/5 throughout Reflexes: 2+ at the knees Results & Data Laboratory Results ESR Normal Diagnostic Findings TTE preserved EF. No shunt. No cardiac thrombus. MRV; Negative for DVT Venous duplex: No DVT in bilateral legs
[2018-12-09] MEDS: INSULIN GLARGINE SOLOSTAR 100 UNITS/ML 3 ML PEN SC SCH ×2 (10:34→20:43)
--- NOTE | 2018-12-09 11:51 | Hospitalist Progress Note ---
Date of Service December 09, 2018 Assessment & Plan (1) CVA (cerebral vascular accident): Idiopathic in setting of new onset uncontrolled diabetes and a h/o hereditary spherocytosis s/p splenectomy. Per Hematology, this is not likely related to HS as she already underwent the treatment (splenectomy). However she does recommend an outpatient follow-up to review hypercoagulable labwork ordered and so that she can proceed with other investigation such as a JaK2 kinase mutation, etc. Outpatient follow-up will be scheduled prior to discharge. Will perform KENNA in am and then plan to dc home. Will need Zio patch as outpatient. Of note, she is having significant menstrual bleeding of late, and we are starting aspirin therapy long-term for secondary stroke prophylaxis. Will ask DOCUMENT REVIEW SPECIALIST to weigh in on her bleeding risk especially as the patient and her are concerned with this and it may affect compliance. Pt does not have a relationship with a PCP which will need to be established for close follow-up. Cont ASA and Liptior. (2) DMII (diabetes mellitus, type 2): New diagnosis, uncontrolled with A1C of 11. Cont basal bolus insulin for goal random glucose <180 or fasting <125. Plan for MDD insulin vs Lantus/ metformin as outpatient with very close PCP followup. Favoring the latter option as this will only involve one injection of insulin daily. (3) Spherocytosis, hereditary: s/p splenectomy at age 5 (4) UTI (urinary tract infection): Completed antibiotic course of Bactrim and is currently asymptomatic. (5) Migraines: Benadryl IV PRN, Reglan PRN. May be contributing to her fatigue. (6) DVT prophylaxis: Lovenox 40mg PO daily Full Dispo-pending multiple studies, likely early next week. Radha Cai DO [facility] Hospitalist Subjective Pt and do not note any neurologic or mental defecits today She is feeling well, ambulating and eating without issue Denies weakness, numbness, CP, SOB or other issue at this time. Physical Exam 2 Vital Signs (Past 24 Hours): Last Vital Signs Temp 36.9 C 12/09/18 11:17 Pulse 19 L 12/09/18 11:17 Resp 19 12/09/18 11:17 BP 132/77 12/09/18 11:17 Pulse Ox 95 12/09/18 11:17 CONSTITUTIONAL: WNWD, vitals as above, generally well-appearing, somewhat sleepy. EYES: EOMI bilaterally, PERRL, normal conjuctivae, no scleral icterus ENT: MMM RESPIRATORY: clear to auscultation bilaterally, no crackles, rales or wheezes, normal respiratory effort CARDIOVASCULAR: regular rate and rhythm, S1 and 2 heard without murmurs, gallops or rubs, no JVD, no peripheral edema GASTROINTESTINAL: soft, nontender, nondistended MUSCULOSKELETAL: strength 5/5 throughout, head is normocephalic and atraumatic , no focal deficits. SKIN: warm and dry NEUROLOGIC: PERRL, EOMI, no facial droop, no dysarthria. CN 2-12 grossly intact, no sensory deficit, normal cognition, normal speech, no tremor PSYCHIATRIC: alert cooperative and oriented to person, place and time. Euthymic mood, makes good eye contact, language grossly intact Results & Data Laboratory Results Short CBC 12/09/18 Range/Units 06:31 WBC 15.77 H (4.8-10.8) K/uL Hgb 14.7 (12.0-16.0) g/dL Hct 43.3 (37-47) % Plt Count 461 H (130-400) K/uL BMP 12/09/18 06:31 Sodium 137 Potassium 3.6 Chloride 104 Carbon Dioxide 25 BUN 14 Creatinine 0.56 L Glucose 212 H Calcium 8.9 Diagnostic Findings MR venography head wo con HISTORY: 33 years-old Female hereditary spherocytosis and acute stroke acute infarction of the right frontal lobe in a patient with history of hereditary spherocytosis COMPARISON: MRI brain 12/07/2018 TECHNIQUE: MRV was obtained without the use of IV contrast. FINDINGS: Large [id number] agriculture department chair localizer images demonstrate no gross abnormality. Major cerebral venous sinuses appear patent. No evidence of cerebral venous thrombosis. IMPRESSION: No evidence of cerebral venous thrombosis. BILATERAL LOWER EXTREMITY VENOUS DOPPLER HISTORY: Acute strokelike symptoms stroke in pt with spherocytosis COMPARISON STUDY: None. FINDINGS: Study is mildly limited secondary to patient body habitus. There is normal compressibility, flow, and augmentation within the bilateral lower extremity deep venous systems. IMPRESSION: No sonographic evidence of deep venous thrombosis within the right or left lower extremity. Medications Administered Current Inpatient Medications Acetaminophen (Tylenol) 650 mg PO Q4H PRN PRN Reason: Pain or Fever Stop: 01/06/19 22:21 Last Admin: 12/09/18 08:17 Dose: 650 mg Al Hydrox/Mg Hydrox/Simethicone (Maalox) 15 ml PO Q4H PRN PRN Reason: Dyspepsia Stop: 01/06/19 22:21 Aspirin (Ecotrin Ectab) 81 mg PO QAM [facility] Stop: 01/07/19 08:59 Last Admin: 12/09/18 08:20 Dose: 81 mg Atorvastatin Calcium (Lipitor) 40 mg PO QAM [facility] Stop: 01/07/19 08:59 Last Admin: 12/09/18 08:19 Dose: 40 mg Dextrose (Dextrose 50%) 25 - 50 ml IV UD PRN; Protocol PRN Reason: Hypoglycemia Protocol Stop: 01/07/19 12:37 Diphenhydramine HCl (Benadryl) 25 mg IV Q8H PRN PRN Reason: Migraine Headache Stop: 01/07/19 14:36 Last Admin: 12/09/18 08:17 Dose: 25 mg Glucagon (Glucagen) 1 mg SQ UD PRN; Protocol PRN Reason: Hypoglycemia Protocol Stop: 01/07/19 12:37 Glucose (Glucose 40%) 15 - 30 gm PO UD PRN; Protocol PRN Reason: Hypoglycemia Protocol Stop: 01/07/19 12:37 Glucose (Dex4 Glucose) 4 - 8 tabs PO UD PRN; Protocol PRN Reason: Hypoglycemia Protocol Stop: 01/07/19 12:37 Insulin Aspart (Novolog Flexpen) 0 units SC ACHS [facility] Stop: 01/07/19 16:29 Last Admin: 12/09/18 12:10 Dose: 7 units Insulin Glargine (Lantus Solostar Pen) 10 units SC BID [facility] Stop: 01/08/19 10:29 Last Admin: 12/09/18 10:34 Dose: 10 units Metoclopramide HCl (Reglan) 10 mg IV Q8H PRN PRN Reason: Nausea Stop: 01/07/19 14:36 Miscellaneous (Carbohydrates For Hypoglycemia) 15 - 30 gm PO UD PRN PRN Reason: Hypoglycemia Treatment Stop: 01/07/19 12:37 Miscellaneous Information (Pharmacist Discharge Med Rec Consult) 1 ea N/A UD PRN PRN Reason: Consult Stop: 01/06/19 22:21 Nitroglycerin (Nitrostat) 0.4 mg SL UD PRN PRN Reason: Chest Pain Stop: 01/06/19 22:21 Ondansetron HCl (Zofran) 4 mg IV Q6H PRN PRN Reason: Nausea Stop: 01/06/19 22:21 _ (1) CVA (cerebral vascular accident) CVA mechanism: unspecified Laterality of affected vessel: Precerebral and cerebral artery: Qualified Code(s): I63.9 - Cerebral infarction, unspecified
--- NOTE | 2018-12-09 15:57 | Cardiology Consultation ---
Date of Consultation December 09, 2018 Assessment & Plan (1) CVA (cerebral vascular accident): 33-year-old female admitted with symptoms of an acute right middle cerebral artery territory ischemic stroke. She has a history of hereditary spherocytosis and had a remote splenectomy. She describes a recent history of menorrhagia, and has been found to have newly diagnosed type 2 diabetes mellitus. We will tentatively plan for transesophageal echocardiogram tomorrow. I am going to consult anesthesia as the patient does describe a history of difficulty swallowing pills and I anticipate she will have a vigorous gag reflex. I described the procedure to her and informed consent was obtained, she elects to proceed. Patient will be n.p.o. after midnight with the exception of her medications with a sip of water. 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 Cai for evaluation of a cardiac source of cerebral embolism. The patient presented via the emergency room on the evening of 12/07/18 with confusion and coworkers had noted a left-sided facial droop. By MRI imaging she was found to have an acute right middle cerebral artery territory stroke. Transthoracic echocardiogram performed yesterday for revealed normal left ventricular myocardial thickness, normal LV wall motion, with LV ejection fraction in the range of 65-70%. There is no evidence of atrial septal defect, but the resolution was insufficient to allow assessment for PFO. No significant valvular abnormalities were noted. EKG on presentation 12/07/18 revealed normal sinus rhythm 80 bpm and she has remained in sinus rhythm on telemetry thus far. At present, the patient has no subjective symptoms. She is feeling well. She is been diagnosed with type 2 diabetes mellitus during his hospital stay which is a new diagnosis for her. Her history is otherwise notable for hereditary spherocytosis for which she had a remote splenectomy. Lipid panel performed this admission revealed only mild elevation in her cholesterol with total cholesterol 180, LDL cholesterol 113, and HDL cholesterol 39. TSH was within normal limits. Allergies Allergy/AdvReac Type Severity Reaction Status Date / Time cefaclor Allergy Unknown Unknown Verified 12/07/18 18:37 Home Medications Home Medications Medication Instructions Recorded Confirmed Type sulfamethoxazole-trimethoprim 1 tab PO BID 12/07/18 12/07/18 History Patient History Medical History Hereditary spherocytosis Kidney stones No known health problems UTI (urinary tract infection) Surgical History H/O splenectomy Family History Other TIA (transient ischemic attack) Social History Current Living Situation: Spouse Other Information That Helps Us Care for You: No Feels Safe at Home: Yes Safety Concerns: Feels Safe At This Time Smoking Status: Never smoker Do You Dip or Chew Tobacco: No Second Hand Exposure: No Tobacco Cessation Education Requested by Patient: No Hx Alcohol Use: No Hx Substance Use: No Beliefs That Will Affect Care: None Communication Ability: Effective Review of Systems 10 point review of systems is reviewed otherwise negative with the exception of a 25-day history of abnormal menstrual bleeding Physical Exam 2 Vital Signs (Past 24 Hours): Last Vital Signs Temp 37.3 C 12/09/18 14:55 Pulse 73 12/09/18 14:55 Resp 19 12/09/18 14:55 BP 121/78 12/09/18 14:55 Pulse Ox 94 12/09/18 14:55 Physical Exam: General: no acute distress and stated age Eyes: conjunctiva are pink and non-injected, sclera clear Neck: normal jugular venous pulse, no hepatojugular reflux Chest: normal shape and normal respiratory effort Lungs: clear to auscultation and percussion Cardiac Exam: - regular heart sounds, no murmurs, rubs, or gallops, no jugular venous distention Abdomen: abdomen soft, non-tender, no abnormal masses and no hepatosplenomegaly Extremities: no edema and no cyanosis Neuro:awake, coversant, follows commands, no focal motor deficits Psych: appropriate affect and insight. _ (1) CVA (cerebral vascular accident) CVA mechanism: unspecified Laterality of affected vessel: Precerebral and cerebral artery: Qualified Code(s): I63.9 - Cerebral infarction, unspecified
--- NOTE | 2018-12-09 17:19 | Anesthesiology Consultation ---
Date of Service December 09, 2018 Assessment & Plan (1) Encounter for pre-operative examination: Chart Review Chart Review: Acceptable Risk for Surgery Consults Requested none History Height/Weight Height: 5 ft 7 in Weight: 94.9 kg Allergies Allergy/AdvReac Type Severity Reaction Status Date / Time cefaclor Allergy Unknown Unknown Verified 12/07/18 18:37 Medications Home Medications Medication Instructions Recorded Confirmed Last Taken sulfamethoxazole-trimethoprim 1 tab PO BID 12/07/18 12/07/18 Unknown Active Medications Generic Name Dose Route Start Last Admin Trade Name Freq PRN Reason Stop Dose Admin Acetaminophen 650 mg 12/07/18 22:22 12/09/18 08:17 Tylenol PO 01/06/19 22:21 650 mg Q4H PRN Administration Pain or Fever Aspirin 81 mg 12/08/18 09:00 12/09/18 08:20 Ecotrin Ectab PO 01/07/19 08:59 81 mg QAM KIM Administration Atorvastatin Calcium 40 mg 12/08/18 09:00 12/09/18 08:19 Lipitor PO 01/07/19 08:59 40 mg QAM KIM Administration Diphenhydramine HCl 25 mg 12/08/18 14:37 12/09/18 17:03 Benadryl IV 01/07/19 14:36 25 mg Q8H PRN Administration Migraine Headache Insulin Aspart 0 units 12/08/18 16:30 12/09/18 17:14 Novolog Flexpen SC 01/07/19 16:29 10 units ACHS KIM Administration Insulin Glargine 10 units 12/09/18 10:30 12/09/18 10:34 Lantus Solostar Pen SC 01/08/19 10:29 10 units BID KIM Administration Metoclopramide HCl 10 mg 12/08/18 14:37 12/09/18 17:03 Reglan IV 01/07/19 14:36 10 mg Q8H PRN Administration Nausea Past Medical History Medical History Hereditary spherocytosis Kidney stones No known health problems UTI (urinary tract infection) Past Family History Family History Other TIA (transient ischemic attack) Past Surgical History Surgical History H/O splenectomy Past Anesthesia History No Hx of Anesthesia Complications and No Family Hx of Anesthesia Complications History of PONV No Motion Sickness Screening History of Motion Sickness: No Social History Smoking Status: Never smoker Do You Dip or Chew Tobacco: No Hx Alcohol Use: No Hx Substance Use: No Exercise / Class Metabolic Activity II 4-5 Yardwork/Stairs/Walk up hill Physical Exam Vital Signs Last Vital Signs Temp 99.1 F 12/09/18 14:55 Pulse 73 12/09/18 14:55 Resp 19 12/09/18 14:55 BP 121/78 12/09/18 14:55 Pulse Ox 94 12/09/18 14:55 ENMT Mouth: + chipped teeth Thyromental Distance: > or= 3.5 Finger Breadths Mallampati Class: II Neck normal visual inspection Respiratory normal respiratory effort Auscultation: lungs clear to auscultation bilaterally Cardiovascular Rate/Rhythm: regular rate and regular rhythm Testing Electrocardiogram Date: 12/07/18 Findings: + NSR @ (80 bpm) Echocardiogram Date: 12/08/18 EF: 60-65% LV Function: normal RWMA: + none Valvular Disease: + no significant valvular disease Other Testing MRI brain 12/07/18 Moderate acute infarction about the right frontal lobe with extension into the right frontal lobe agustin radiata and centrum semiovale. No associated acute intracranial hemorrhage, midline shift or hydrocephalus. Laboratory Results 12/09/18 06:31 12/09/18 06:31 PT Cancelled 12/07/18 17:45 INR Cancelled 12/07/18 17:45 Hemoglobin A1c 11.0 % (4.5-5.6) H 12/08/18 06:56 Urine Color Dark Yellow 12/07/18 17:50 Urine Appearance Clear (Clear) 12/07/18 17:50 Urine pH 5.5 (4.5-7.5) 12/07/18 17:50 Ur Specific [place] 1.044 (1.000-1.030) H 12/07/18 17:50 Urine Protein Negative (Negative) 12/07/18 17:50 Urine Glucose (UA) 3+ (Negative) H 12/07/18 17:50 Urine Ketones 1+ (Negative) H 12/07/18 17:50 Urine Nitrite Positive (Negative) H 12/07/18 17:50 Ur Leukocyte Esterase Negative (Negative) 12/07/18 17:50 Urine WBC (Auto) 1-5 /hpf (0-5) 12/07/18 17:50 Urine RBC (Auto) 0-4 /hpf (0-4) 12/07/18 17:50 U Hyaline Cast (Auto) 1-5 /lpf (0-5) 12/07/18 17:50 U Epithel Cells (Auto) >30 /lpf (0-5) H 12/07/18 17:50 Urine Bacteria (Auto) Negative (Negative) 12/07/18 17:50 12/09/18 12/09/18 12/09/18 16:31 11:34 07:26 POC Glucose 230 H 190 H 203 H 12/07/18 17:50 POC Ur Test NEG
[2018-12-10] MEDS ORDERED: INSULIN ASPART 100 UNITS/ML 3 ML PEN SC ONE (01:00)
[2018-12-10 07:07] LABS: Basophils # (auto) 0.05 K/uL (0-0.2); Basophils % (auto) 0.3 %; Eosinophils # (auto) 0.13 K/uL (0-0.5); Eosinophils % (auto) 0.7 %; Hematocrit (blood only) 45.5 % (37-47); Hemoglobin 15.5 g/dL (12.0-16.0); Immature Granulocytes # (auto) 0.12 K/uL (0.00-0.02); Immature Granulocytes % (auto) 0.7 %; Lymphocytes # (auto) 4.02 K/uL (1.2-3.4); Mean Corpuscular Hgb Conc 34.1 g/dL (32-36); Mean Corpuscular Volume 90.1 fL (80-100); Mean Platelet Volume 9.6 fL (7.4-10.4); Monocytes # (auto) 1.39 K/uL (0.11-0.59); Monocytes % (auto) 7.6 %; Neutrophils # (auto) 12.54 K/uL (1.4-6.5); Neutrophils % (auto) 68.7 %; Platelet Count 452 K/uL (130-400); RDW Coefficient of Variation 13.9 % (11.5-14.5); RDW Standard Deviation 45.5 fL (36.4-46.3); Red Blood Count 5.05 M/uL (4.2-5.4); White Blood Count 18.25 K/uL (4.8-10.8)
[2018-12-10 07:37] LABS: BUN Creatinine Ratio 25.8 (10-20); Calcium 8.7 mg/dl (8.5-10.1); Est GFR (African American) 135.2; Est GFR (Non-African American) 116.7; Potassium 3.7 mmol/L (3.5-5.1)
[2018-12-10] MEDS: INSULIN GLARGINE SOLOSTAR 100 UNITS/ML 3 ML PEN SC SCH ×2 (08:14→22:08)
[2018-12-10] MEDS: INSULIN ASPART 100 UNITS/ML 3 ML PEN SC SCH ×4 (08:14→22:08)
[2018-12-10] MEDS ORDERED: LIDOCAINE HCL 2% 2 ML VIAL/AMP(20MG/ML) INFIL ONE (13:52)
[2018-12-10] MEDS ORDERED: PROPOFOL IV EMULSION 10 MG/ML 20 ML VIAL IV ONE (13:52)
--- NOTE | 2018-12-10 14:12 | Post Operative Brief Note ---
Cardiology Brief Post Op Date of Surgery December 10, 2018 Pre & Post Diagnosis Operation Date: 12/10/18 07:30 Preprocedure diagnosis: Stroke, assess for cardiac source of cerebral embolism Post procedure diagnosis: No cardiac source of cerebral embolism identified Procedure After informed consent was obtained and a timeout was performed a transesophageal echocardiogram was performed with the patient receiving a total of [address] Amaya of anesthesia. Patient tolerated the procedure well. A cardiac source of embolism was identified. Television Repair Teacher DO Assistant Vance Peoples Estimated Blood Loss 0 Findings Consistent with Post-Op Diagnosis
--- NOTE | 2018-12-10 15:01 | OB/GYN Consultation ---
Date of Consultation December 10, 2018 Assessment & Plan (1) Abnormal uterine bleedin yo female admitted for CVA, on Aspirin AUB since 11/14, last period Enlarged uterus on exam No h/o contraception Plan BHCG, pelvic US and f/u in office for options Understsands her options would be limited due to h/o CVA Discussed Mirena IUD with local Progestin, she will consider I have send a message to my office to help to schedule a follow up next week Our number [phone] in case (2) Metrorrhagia: History of Present Illness Reason for Consultation: Metrorrhagia: Period since 11/14/18 Attending Physician: Radha Cai, History of Present Illness Patient is a 33 yo female who is admitted for stroke, h/o Herediatry spehrocytosis and found to have DM. She was placed on Aspirin She has no complaints other than havign her period since 11/14/18 She uses to have regular periods every month lasting for 3 days wioth normal flow Her period never stopped. She is still using menstrual cup/ pad and changes them once aday No pelvic pain/ vaginal d/c/ itching or irrition of vagina She has not seen any body for this She took HPT and were negative She is sexually active with her only and does not use contraception She does not plan to be but not preventing either She had 1 baby 9 years ago and used Depo Provera for 3 years and stopped/ Sh ehas not seen endocrinology teacher for years since she had her baby. No h/o abnormal pap smears Lat one was in 2017, no records. Recommended pelvic exam and US today, she accepted. Offered her STD screening but declined. Allergies Allergy/AdvReac Type Severity Reaction Status Date / Time cefaclor Allergy Unknown Unknown Verified 12/07/18 18:37 Home Medications Home Medications Medication Instructions Recorded Confirmed Type sulfamethoxazole-trimethoprim 1 tab PO BID 12/07/18 12/07/18 History aspirin [Ecotrin Low Strength] 81 mg PO QAM #90 tab 12/10/18 Rx atorvastatin 40 mg PO QAM #30 tab 12/10/18 Rx blood sugar diagnostic [OneTouch #100 ea 12/10/18 Rx Verio strips] insulin glargine [Lantus Solostar 15 units SC HS #15 ml 12/10/18 Rx U-100 Insulin] lancets [OneTouch Delica Lancets] #100 ea 12/10/18 Rx metformin 500 mg PO BID #60 tab 12/10/18 Rx pen needle, diabetic [Pen Needle] #90 ea 12/10/18 Rx Patient History Medical History Hereditary spherocytosis Kidney stones No known health problems UTI (urinary tract infection) Surgical History H/O splenectomy Family History Other TIA (transient ischemic attack) Social History Current Living Situation: Spouse Other Information That Helps Us Care for You: No Feels Safe at Home: Yes Safety Concerns: Feels Safe At This Time Smoking Status: Never smoker Do You Dip or Chew Tobacco: No Hx Alcohol Use: No Hx Substance Use: No Beliefs That Will Affect Care: None Communication Ability: Effective Review of Systems Constitutional: as per Subjective / HPI Physical Exam 2 Vital Signs (Past 24 Hours): Last Vital Signs Temp 36.8 C 12/10/18 14:12 Pulse 97 H 12/10/18 14:12 Resp 18 12/10/18 14:12 BP 118/76 12/10/18 14:12 Pulse Ox 95 12/10/18 14:12 Constitutional: WD/WN, vitals as above well nourished and comfortable Gastrointestinal (Abdomen): Inspection/Auscultation: abdomen normal to inspection and normal bowel sounds Percussion/Palpation: abdomen soft Nontender Genitourinary: no vaginal lesions, no adnexal mass normal external appearance Speculum/Bimanual Exam: normal appearance of the vagina, normal appearance of the cervix (minimal spotting from os, no lesions, no irritation), + abnormal uterine size (8 weeks size), normal cervical palpation, + uterus boggy and + adnexal mass (left adnexal fullness noted)
--- NOTE | 2018-12-10 15:03 | Anesthesiology Progress Note ---
Date of Service December 10, 2018 Anesthesia Post Procedure Vital Signs Vital Signs: Temp Pulse Pulse Resp BP Pulse Ox 12/10/18 14:12 36.8 C 97 H 18 118/76 95 12/10/18 10:45 37.2 C 80 19 130/75 96 12/10/18 08:00 75 12/10/18 07:07 36.9 C 72 17 130/78 94 12/10/18 02:52 36.6 C 62 15 138/79 95 12/10/18 00:35 65 12/09/18 23:19 37.1 C 70 17 125/71 94 12/09/18 19:26 37.1 C 85 18 118/76 92 Pain Intensity Right Temporal: Pain Intensity: 3 Notes Mental Status: alert / awake / arousable Patient Amnestic to Procedure: Yes Nausea / Vomiting: adequately controlled Pain: adequately controlled Airway Patency, RR, SpO2: stable & adequate BP & HR: stable & adequate Hydration State: stable & adequate Anesthetic Complications: no major complications apparent
[2018-12-10] MEDS: ATORVASTATIN 40 MG TAB PO SCH (15:46)
[2018-12-10] MEDS: ASPIRIN 81 MG ECTAB PO SCH (15:46)
[2018-12-10] MEDS ORDERED: STROKE PATIENT DISCHARGE STA (18:25)
--- NOTE | 2018-12-10 18:29 | Discharge Summary ---
Date of Service December 13, 2018 Admission HPI Per Admitting Provider This is a 33-year-old female with past medical history significant for hereditary spherocytosis status post splenectomy at age of 5 history of kidney stones and history of UTI currently on Bactrim for recent UTI was brought in because of strokelike symptoms. Patient works in a bank as a lovelock. Today at around 11 AM her coworkers noticed she seemed slow than her usual. She was taking notes in the computer and she seemed to mix up with numbers and letters. Was mixed mixing up with counting. She also texted her which did not make any sense. She is also sleeping at the desk. So she was brought to the ER. In the ER CT scan showed moderate size infarct in the right frontal lobe. MRI also showed the same. The ER physician talked to the [place] stroke neurologist and was advised to get CT of the head and neck and if the scans are unremarkable to admit in the local hospital. CTA of the head and neck did not showed any acute findings. Currently patient is resting comfortably and hemodynamically stable. , mother, brother and family is in the room. Speech is clear. She is swallowing okay. Denies any headaches or blurred visions. No chest pain or shortness of breath. No nausea or vomiting. No abdominal pain. Was able to substact 100-7, but could not do further. Otherwise alert and oriented x3 and will be follow commands. Admission Exam Per Admitting Provider Temp 36.7 C 12/07/18 22:27 Pulse 83 12/07/18 22:27 Resp 20 12/07/18 22:27 BP 138/81 12/07/18 22:27 Pulse Ox 94 12/07/18 22:27 Physical Exam: General- Not in distress Head- atraumatic Mild right facial droop present Eyes- PERRL, no pallor anicteric ENT- oropharynx clear Neck- supple, no JVD, no adenopathy, no thyromegaly; carotids +2/2, no bruits appreciated Lungs- clear to auscultation and percussion Heart- regular rhythm; no murmur, no gallop, Abdomen- normal bowel sounds, soft, nontender, no masses Extremities- no pretibial edema, no erythema Neuro- alert, oriented x 3; PERRL, EOMI; right facial droop present ; no dysarthria; motor 5/5 bilaterally; finger to nose intact bilaterally, No pronator drift, sensations intact, position sense intact Skin- warm & dry Principal Diagnosis Acute stroke New onset diabetes Abnormal uterine bleeding Acute kidney injury Hospital-acquired pneumonia Discharge Data Allergies Allergy/AdvReac Type Severity Reaction Status Date / Time cefaclor Allergy Unknown Unknown Verified 12/07/18 18:37 Consultations 12/07/18 22:22 Consult Case Management - Discharge Planning Routine Consult Case Management - Discharge Planning Routine 12/07/18 22:26 ED Decision to Admit Stat 12/08/18 08:00 Consult Neurology Routine 12/09/18 15:09 Consult Cardiology Routine Consult Gynecology Routine 12/09/18 15:45 Consult Anesthesiology Routine Procedures Performed Operation Date: 12/10/18 07:30 Actual Procedures p Transesophageal Echo w/Anesthesia - Josiah Bloom DO Ordered Studies 12/07/18 17:25 CT head/brain wo con Stat MR brain wo con Stat 12/07/18 19:05 CT angio head w con Stat CT angio neck with con Stat 12/08/18 14:38 US venous doppler LE BI Urgent 12/08/18 15:16 MR venography head wo con Urgent 12/10/18 14:41 US pelvic complete Urgent 12/10/18 14:42 US transvaginal Urgent Hospital Course (1) CVA (cerebral vascular accident): (2) Hospital-acquired pneumonia: (3) DMII (diabetes mellitus, type 2): (4) Spherocytosis, hereditary: (5) UTI (urinary tract infection): (6) Abnormal uterine bleeding: (7) Leukocytosis: (8) ADAIR (acute kidney injury): (9) Migraines: 33-year-old female presented to the emergency room with stroke-like symptoms for several hours prior to arrival. Specifically, coworkers noticed facial droop and confusion. She had been recently given Bactrim for a urinary and a been on antibiotics for approximately 5 days. A stroke alert was called and the patient's case was reviewed with Dr. Bermudez with [facility]. He recommended a CTA of the head and neck. This revealed no evidence of aneurysm, focal vessel occlusion, or significant stenosis of the intracranial arteries. Brain MRI revealed moderate acute infarction about the right frontal lobe with extension into the right frontal lobe agustin radiata and centrum semi- ovale. There was no associated acute intracranial hemorrhage, midline shift or hydrocephalus a plain head CT revealed moderate sized acute infarction of the right frontal lobe. There was no indication for tPA and no transfer for tertiary care treatment was recommended. She was admitted to the hospitalist service. Neurology was consulted. EKG shows normal sinus rhythm. Chest x-ray was negative for acute disease. Blood work was otherwise unremarkable aside from a mild leukocytosis. Urine was suggestive of infection but again, she was on treatment for a UTI. She was afebrile. She was given aspirin p.o. She notably had a history of hereditary spherocytosis status post splenectomy at age 5. She was continued on aspirin 81 mg daily and a high intensity. Hypercoagulable studies were ordered and in process. In the setting of prior HS, a venous workup was warranted and an MRV and doppler ultrasounds of the lower extremities were ordered. Both were negative for venous thrombosis. Cardiology was consulted for a transesophageal echo which was performed and negative. While admitted she did have some migraines and was treated with Benadryl 25 IV and Reglan 10 mg IV as needed. Telemetry during her hospitalization was negative for any arrhythmias. Neurology recommended a 14- day event monitor as outpatient to complete the workup. Hemoglobin A1c was checked and was found to be 11. This was a new diagnosis of diabetes, and for treatment she was started on basal/bolus insulin during her stay. This was transitioned to Lantus and metformin as outpatient and will require close primary care followup for continued titration of medications. Further complications of her hospitalization included a fever to 102F just prior to discharge, prokmpting a chest ray that revealed presence of hospital acquired pneumonia. Flu PCR was checked and was negative. She was placed on broad spectrum antibiotics for two days and was clnically improved within 24 hours. Then, her creatinine doubled indicating an acute kidney injury, which was likely related to prerenal azotemia in the setting of infection as this improved significantly with IVF overnight. She was also reporting abnormal uterine bleeding for the past month and so was seen by OB while admitted. She underwent a serum Hcg which was negative and a transvaginal us which was negative. Close followup within one week was recommended in the [facility] office. It was recommended that she see Hematology (Dr. Riana Perkins Heme/Onc) on discharge to discuss the results of the hypercoagulation panel and to continue the workup including a JAK2 kinase mutation to discern etiology of this crytogenic stroke. On day of discharge all neurologic deficits from the initial stroke had resolved and she was mentating and ambulating at baseline. She was tolerating PO and swallowing without issue. She was asymptomatic from a respiratory standpoint and was afebrile for >24 hours. Physical exam was unremarkable. She was discharged in stable condition with close primary care follow-up recommended. Total Time Total Time Spent Total Time Spent (In Minutes): 60 Total Time Includes: Examination of the Patient, Discharge Planning, Medication Reconciliation, Communication With Other Providers and Other (est followup appointments) Discharge Plan Discharge Items Patient Disposition: Home - Self-Care Reason For Visit: STROKE LIKE SYMPTOMS Discharge Diagnosis: Acute stroke New onset diabetes Abnormal uterine bleeding Acute kidney injury-resolved Condition: Good Discharge Goals: Improve disease control Activity: Resume your previous activity Non-emergency contact: Primary Care Provider Call non-emergency contact if: you have any medication questions, your symptoms worsen, your pain is not controlled, your pain is worsening, your pain is concerning for you and you have a fever Follow-up/Referrals: Gilberto Lloyd MD [Physician] - Anibal Pappas MD [Physician] - Diet: Carb Consistent or DM2 and Heart Healthy Addtl Provider Instructions: Please take all medications as prescribed on discharge list below. You are now being prescribed ASPIRIN, ATORVASTATIN and these are important in preventing another stroke. Please take them every day. You are being started on GLARGINE (LANTUS) which is a long-acting insulin to take once injected just under the skin every evening. Please take your fasting blood sugar in the morning every day prior to breakfast and record this. Please bring this record to every primary care visit, as the dose may need to be adjusted. Do not titrate this medication any faster than every three days. You are also being started on METFORMIN, which is for diabetes. You will need to have close followup over the next few months to work with your primary care provider to get these numbers under control. A nutrition consult as an outpatient is also recommended. You were found to have an elevated white blood cell count on labwork here. This will need to be repeated in one week with your primary care provider above to ensure resolution back into the normal range. You were found to have acute kidney injury and will need repeat bloodwork in one week to ensure your creatinine has returned to baseline, around 0.5. You were given a lab prescription for this to take to the lab. Results should be sent to the primary care provider below. You will need to follow-up with [facility]rology in 4-6 weeks. You will need to undergo outpatient event monitoring with a Zio patch. This can be ordered through your primary care provider on follow-up. You will need to follow-up with Dr. Felder at [facility]. Someone from her office should be contacting you with an appointment time. However, if you don't hear from someone, please call her office for this. At this point, it is not clear what caused your stroke. However, there is bloodwork pending for which you should see [facility] Hematology. After discussion of your case with Dr. Riana Thomson, she would like you to be seen in the clinic in the next few weeks at which time she will order some additional bloodwork and interpret those pending labs. Please contact them for an appointment. You may need to obtain a referral from your primary care provider for this. You have the following appointment scheduled: Date & Time 12/14/2018 1:40 PM Provider Gabriela Huertas PA-C Department Family Practice, [facility] Date & Time 12/19/2018 7:00 PM Provider Gabriela Huertas PA-C Department [facility], [place] Consider the recommendation to switch to Internal Medicine for primary care. It was a pleasure taking care of you! Please call if you have any questions or problems. You can reach a [facility] hospitalist on duty at [facility] 24 hours a day by calling [phone]. Take care of yourself. Radha Cai, DO [facility] Hospitalist Prescriptions: New atorvastatin 40 mg Tablet 40 mg PO QAM Qty: 30 RF: 2 aspirin [Ecotrin Low Strength] 81 mg Tablet,Delayed Release (Dr/Ec) 81 mg PO QAM Qty: 90 RF: 3 metformin 500 mg tablet 500 mg PO BID Qty: 60 RF: 1 blood sugar diagnostic [OneTouch Verio] strip .ROUTE .MEDSUPPLY Qty: 100 RF: 3 lancets [OneTouch Delica Lancets] 33 gauge misc .ROUTE .MEDSUPPLY Qty: 100 RF: 3 pen needle, diabetic [Pen Needle] 32 gauge x 5/32" needle .ROUTE .MEDSUPPLY Qty: 90 RF: 3 Lantus Solostar U-100 Insulin 100 unit/mL (3 mL) insulin pen 20 units SQ DAILY Qty: 15 RF: 1 Discontinued sulfamethoxazole-trimethoprim 800-160 mg tablet 1 tab PO BID RF: 0 Stand-Alone Forms: Medications to Prevent Stroke, [facility] Discharge Orders: Discharge Order (Routine); Ordered 12/13/18 Ordered By: Radha Cai Admission Data Admit Date/Time: 12/07/18 21:22 Attending Provider: Radha Cai Admit Provider: Sivakumar Davis Primary Care Provider: PCP,NO Other Providers: Sivakumar Davis ; Cleopatra Bhatt ; Gilberto Lloyd ; Cleopatra Ojeda ; Xavier Nelson ; Saúl Kiran ; Sherrie Upton ; Josiah Bloom ; Lizandro Choi ; Vicente Lu Service: Telemetry Other Interventions: Discharge Summary Assessment (RN) Last Done: 12/13/18 12:02 DC Date/Time DO NOT enter until pt leaves facility: 12/13/18 13:46
[2018-12-10] MEDS ORDERED: PIPERACILL/TAZOBAC CONSULT ACTIVE PRN (19:15)
[2018-12-10] MEDS ORDERED: VANCOMYCIN CONSULT ACTIVE PRN (19:17)
[2018-12-10] MEDS ORDERED: VANCOMYCIN HCL 2,250 MG in SODIUM CHLORIDE 0.9% 500 ML IV ONE (19:30)
[2018-12-10] MEDS ORDERED: PIPERACILLIN/TAZOBACTAM 3.375 GM in DEXTROSE 5% 100 ML IV ONE (19:30)
--- NOTE | 2018-12-10 20:16 | XRay Report ---
SINGLE VIEW CHEST CLINICAL HISTORY: Fever. FINDINGS: An AP, portable, upright chest radiograph is compared to study dated 12/07/2018. The cardiom ediastinal silhouette is unremarkable. There is platelike atelectasis at the right lung base. Patchy airspace consolidation is suggested at the left lung base in the retrocardiac region. No large pleura l effusion or pneumothorax is seen. The bony thorax is grossly intact. IMPRESSION: 1. Patchy airspace consolidation is suggested at the left lung base in the retrocardiac region. Corre late clinically for evidence of pneumonia. If clinically warranted this could be further assessed wit h a dedicated PA and lateral examination. 2. There is plate like atelectasis at the right lung base. Electronically signed by: Gerson Quintanilla M.D. 12/10/2018 8:14 PM
--- NOTE | 2018-12-10 21:13 | Ultrasound Report ---
ULTRASOUND OF THE PELVIS CLINICAL HISTORY: Abnormal uterine bleeding. COMPARISON STUDY: Pelvic CT dated 05/10/2017. TECHNIQUE: Real-time, grayscale, and color flow sonography of the pelvis is performed both transabdom inally and endovaginally. Images are reviewed in the transverse and longitudinal planes. The endovagi nal examination was performed for better assessment of the endometrium and adnexa. FINDINGS: Uterus: The uterus is normal in size and echotexture, measuring 9.3 x 3.6 x 6.0 cm. Small nabothian c ysts are noted in the cervix. Endometrium: The endometrium is normal in appearance, and the endometrial stripe is normal in thickne ss measuring up to 0.6 cm. Ovaries: The ovaries are normal in size and morphology. The right ovary measures 2.7 x 1.7 x 1.8 cm a nd the left ovary measures 2.4 x 1.2 x 1.9 cm. There are numerous bilateral ovarian follicles. Normal Doppler waveforms are shown within both ovaries. Pelvis: There is no free fluid in the cul-de-sac. No concerning adnexal lesion is seen. IMPRESSION: Unremarkable sonographic assessment of the pelvis. Electronically signed by: Gerson Quintanilla M.D. 12/10/2018 9:12 PM
--- NOTE | 2018-12-10 23:09 | Obstetrical Progress Note ---
Date of Service December 10, 2018 Subjective Reviewed US report Normal pelvic US BHCG negative Plan to f/u in office next week I notified my office to contact her Please have her call [phone] at [facility] just in case my staff can not reach her. Physical Exam 2 Vital Signs (Past 24 Hours): Last Vital Signs Temp 38.7 C H 12/10/18 18:58 Pulse 98 H 12/10/18 18:57 Resp 16 12/10/18 18:57 BP 112/67 12/10/18 18:57 Pulse Ox 96 12/10/18 18:57
[2018-12-11] MEDS: PIPERACILLIN/TAZOBACTAM 3.375 GM in DEXTROSE 5% 100 ML IV SCH ×3 (01:01→18:11)
[2018-12-11] MEDS: VANCOMYCIN HCL 1,500 MG in SODIUM CHLORIDE 0.9% 500 ML IV SCH ×2 (05:42→13:37)
[2018-12-11 06:56] LABS: Appearance Urine Clear (Clear); Bacteria Urine Automated Negative (Negative); Bilirubin Urine Negative (Negative); Blood Urine Trace (Negative); Color Urine Yellow; Epithelial Cell Urine Auto >30 /lpf (0-5); Glucose Urine UA Negative (Negative); Ketones Urine Trace (Negative); Leukocyte Esterase Urine Negative (Negative); Nitrite Urine Negative (Negative); Protein Urine Negative (Negative); RBC Urine Automated 0-4 /hpf (0-4); Specific Gravity Urine 1.018 (1.000-1.030); Urobilinogen Urine Negative (Negative)
[2018-12-11 07:25] LABS: Basophils # (auto) 0.06 K/uL (0-0.2); Basophils % (auto) 0.2 %; Eosinophils # (auto) 0.18 K/uL (0-0.5); Eosinophils % (auto) 0.7 %; Hematocrit (blood only) 44.9 % (37-47); Hemoglobin 15.4 g/dL (12.0-16.0); Immature Granulocytes # (auto) 0.12 K/uL (0.00-0.02); Immature Granulocytes % (auto) 0.5 %; Lymphocytes % (auto) 18.9 %; Mean Corpuscular Hgb Conc 34.3 g/dL (32-36); Mean Platelet Volume 9.4 fL (7.4-10.4); Monocytes % (auto) 5.6 %; Neutrophils # (auto) 18.35 K/uL (1.4-6.5); Neutrophils % (auto) 74.1 %; Platelet Count 420 K/uL (130-400); RDW Standard Deviation 45.8 fL (36.4-46.3); Red Blood Count 4.99 M/uL (4.2-5.4); White Blood Count 24.81 K/uL (4.8-10.8)
--- NOTE | 2018-12-11 07:52 | Hospitalist Progress Note ---
Date of Service December 10, 2018 Assessment & Plan (1) HAP (hospital-acquired pneumonia): Fever resolved with addition of Vanc/Zosyn. Plan to deescalate pending negative cultures and clinical improvement. MRSA negative so Vanc was stopped. (2) Leukocytosis: (3) Abnormal uterine bleeding: Pelvic US was negative. Beta hCG negative. Follow-up with [facility] as outpatient next week. (4) CVA (cerebral vascular accident): Idiopathic in setting of new onset uncontrolled diabetes and a h/o hereditary spherocytosis s/p splenectomy. Per Hematology, this is not likely related to HS as she already underwent the treatment (splenectomy). However she does recommend an outpatient follow-up to review hypercoagulable labwork ordered and so that she can proceed with other investigation such as a JaK2 kinase mut ation, etc. Outpatient follow-up will be scheduled prior to discharge. KENNA was negative. Will need Zio patch as outpatient. Cont ASA and Lipitor (5) DMII (diabetes mellitus, type 2): New diagnosis, uncontrolled with A1C of 11. Cont basal bolus insulin for goal random glucose <180 or fasting <125. Plan for Lantus/metformin as outpatient with very close PCP followup. (6) Spherocytosis, hereditary: s/p splenectomy at age 5 (7) UTI (urinary tract infection): Completed antibiotic course of Bactrim and is currently asymptomatic. Repeat urinalysis was negative. (8) Migraines: (9) DVT prophylaxis: Lovenox 40mg PO daily Full Dispo-likely to home in a.m. Radha Cai DO [facility] Hospitalist Subjective Pt feels well today after Vanc/Zosyn added last night in setting of possible HAP. She is tolerating PO. Denies fevers chills. No residual deficits from stroke. Review of telemetry reveals no arrhythmias overnight. Physical Exam Vital Signs (Past 24 Hours): Last Vital Signs Temp 36.9 C 12/11/18 07:07 Pulse 70 12/11/18 07:07 Resp 16 12/11/18 07:07 BP 118/79 12/11/18 07:07 Pulse Ox 99 12/11/18 07:07 CONSTITUTIONAL: WNWD, vitals as above, generally well-appearing EYES: normal conjuctivae, no scleral icterus ENT: MMM RESPIRATORY: clear to auscultation bilaterally, no crackles, rales or wheezes, normal respiratory effort CARDIOVASCULAR: regular rate and rhythm, S1 and 2 heard without murmurs, gallops or rubs, no JVD, no peripheral edema GASTROINTESTINAL: soft, nontender, nondistended MUSCULOSKELETAL: strength 5/5 throughout, head is normocephalic and atraumatic, no focal deficits. SKIN: warm and dry NEUROLOGIC: no facial droop, no dysarthria. CN 2-12 grossly intact, no sensory deficit, normal cognition, normal speech, no tremor PSYCHIATRIC: alert cooperative and oriented to person, place and time. Euthymic mood, makes good eye contact, language grossly intact Results & Data Laboratory Results Short CBC 12/11/18 Range/Units 07:10 WBC 24.81 H (4.8-10.8) K/uL Hgb 15.4 (12.0-16.0) g/dL Hct 44.9 (37-47) % Plt Count 420 H (130-400) K/uL BMP 12/11/18 07:10 Sodium 137 Potassium 3.4 L Chloride 104 Carbon Dioxide 27 BUN 13 Creatinine 0.68 Glucose 165 H Calcium 8.8 Urine 12/11/18 Range/Units 06:40 Urine Color Yellow Urine Appearance Clear (Clear) Urine pH 5.0 (4.5-7.5) Ur Specific [place] 1.018 (1.000-1.030) Urine Protein Negative (Negative) Urine Glucose (UA) Negative (Negative) Medications Administered Current Inpatient Medications Acetaminophen (Tylenol) 650 mg PO Q4H PRN PRN Reason: Pain or Fever Stop: 01/06/19 22:21 Last Admin: 12/09/18 08:17 Dose: 650 mg Al Hydrox/Mg Hydrox/Simethicone (Maalox) 15 ml PO Q4H PRN PRN Reason: Dyspepsia Stop: 01/06/19 22:21 Aspirin ([facility]rin E[facility]ab) [facility] Stop: 01/07/19 08:59 Last Admin: 12/11/18 08:20 Dose: 81 mg Atorvastatin Calcium (Lipitor) 40 mg PO [facility] Stop: 01/07/19 08:59 Last Admin: 12/11/18 08:57 Dose: 40 mg Dextrose (Dextrose 50%) 25 - 50 ml IV UD PRN; Protocol PRN Reason: Hypoglycemia Protocol Stop: 01/07/19 12:37 Glucagon (Glucagen) 1 mg SQ UD PRN; Protocol PRN Reason: Hypoglycemia Protocol Stop: 01/07/19 12:37 Glucose (Glucose 40%) 15 - 30 gm PO UD PRN; Protocol PRN Reason: Hypoglycemia Protocol Stop: 01/07/19 12:37 Glucose (Dex4 Glucose) 4 - 8 tabs PO UD PRN; Protocol PRN Reason: Hypoglycemia Protocol Stop: 01/07/19 12:37 Piperacillin Sod/Tazobactam (Sod 3.375 gm/ Dextrose) 115 mls @ 28.75 mls/hr IV Q8H KIM; Protocol Stop: 12/24/18 21:59 Last Admin: 12/11/18 09:55 Dose: 28.8 mls/hr Vancomycin HCl 1,500 mg/ (Sodium Chloride) 530 mls @ 200 mls/hr IV Q8H KIM Stop: 12/25/18 05:59 Last Infusion: 12/11/18 08:23 Dose: Infused Sodium Chloride (Nss 1000ml) 1,000 mls @ 125 mls/hr IV .Q8H KIM Stop: 12/11/18 15:59 Last Admin: 12/11/18 08:19 Dose: 125 mls/hr Insulin Aspart (Novolog Flexpen) 0 units SC ACHS KIM Stop: 01/07/19 16:29 Last Admin: 12/11/18 08:19 Dose: 10 units Insulin Glargine (Lantus Solostar Pen) 10 units SC BID KIM Stop: 01/08/19 10:29 Last Admin: 12/11/18 08:20 Dose: 10 units Insulin Glargine (Lantus Solostar Pen) 5 units SC 1200 ONE Stop: 12/11/18 12:01 Miscellaneous (Carbohydrates For Hypoglycemia) 15 - 30 gm PO UD PRN PRN Reason: Hypoglycemia Treatment Stop: 01/07/19 12:37 Miscellaneous Information (Pharmacist Discharge Med Rec Consult) 1 ea N/A UD PRN PRN Reason: Consult Stop: 01/06/19 22:21 Miscellaneous Information (Consult) 1 ea N/A UD PRN PRN Reason: Consult Stop: 01/09/19 19:16 Miscellaneous Information (Consult) 1 ea N/A UD PRN PRN Reason: Consult Stop: 01/09/19 19:14 Miscellaneous Information (Consult Glycemic Management Pharmacy) 1 ea N/A UD PRN PRN Reason: . Stop: 01/10/19 08:02 Nitroglycerin (Nitrostat) 0.4 mg SL UD PRN PRN Reason: Chest Pain Stop: 01/06/19 22:21 Ondansetron HCl (Zofran) 4 mg IV Q6H PRN PRN Reason: Nausea Stop: 01/06/19 22:21 (1) CVA (cerebral vascular accident) CVA mechanism: unspecified Qualified Code(s): I63.9 - Cerebral infarction, unspecified
[2018-12-11 07:58] LABS: BUN Creatinine Ratio 19.9 (10-20); Calcium 8.8 mg/dl (8.5-10.1); Creatinine Clr Calc Pharmacy 138.4 ml/min; Est GFR (African American) 133.2; Est GFR (Non-African American) 114.9; Potassium 3.4 mmol/L (3.5-5.1)
[2018-12-11] MEDS ORDERED: SODIUM CHLORIDE 0.9% 1000ML 1,000 ML IV SCH (08:00)
[2018-12-11] MEDS ORDERED: PHARMACY GLYCEMIC MGMT CONSULT PRN (08:03)
--- NOTE | 2018-12-11 08:03 | Anesthesiology Progress Note ---
Date of Service December 11, 2018 Anesthesia Post Procedure Vital Signs Vital Signs: Temp Pulse Pulse Resp BP Pulse Ox 12/11/18 07:07 36.9 C 70 16 118/79 99 12/11/18 03:56 36.5 C 79 18 123/76 94 12/10/18 23:17 37.0 C 114 H 17 141/78 H 93 12/10/18 18:58 38.7 C H 12/10/18 18:57 39 C H 98 H 98 H 16 112/67 96 12/10/18 15:39 37.5 C 100 H 18 118/72 94 12/10/18 15:35 36.4 C L 85 16 101/57 L 100 12/10/18 14:12 36.8 C 97 H 18 118/76 95 12/10/18 10:45 37.2 C 80 19 130/75 96 Pain Intensity Right Temporal: Pain Intensity: 0 Notes Mental Status: alert / awake / arousable Patient Amnestic to Procedure: Yes Nausea / Vomiting: adequately controlled Pain: adequately controlled Airway Patency, RR, SpO2: stable & adequate BP & HR: stable & adequate Hydration State: stable & adequate Anesthetic Complications: no major complications apparent
[2018-12-11] MEDS: INSULIN ASPART 100 UNITS/ML 3 ML PEN SC SCH ×4 (08:19→22:12)
[2018-12-11] MEDS: ASPIRIN 81 MG ECTAB PO SCH (08:20)
[2018-12-11] MEDS: INSULIN GLARGINE SOLOSTAR 100 UNITS/ML 3 ML PEN SC SCH ×2 (08:20→22:12)
[2018-12-11 08:53] LABS: Influenza A virus by PCR Neg for Influ A (Neg); Influenza B virus by PCR Neg for Influ B (Neg)
[2018-12-11] MEDS: ATORVASTATIN 40 MG TAB PO SCH (08:57)
--- NOTE | 2018-12-11 11:55 | Pharmacy Report ---
Pharmacy Glycemic Short Note 2 - Date of Service December 11, 2018 - Glycemic Short BSG Results (Last 24 hours): 12/10/18 12/10/18 12/11/18 16:18 20:52 07:10 Glucose 165 H POC Glucose 163 H 169 H 12/11/18 12/11/18 07:22 11:04 Glucose POC Glucose 171 H 209 H OUTPATIENT ANTIDIABETIC REGIMEN: * New diagnosis * A1c 11% 12/08/18 ASSESSMENT: * 33 yr old female admitted with abnormal uterine bleeding, CVA, and HAP * New diagnosis of T2DM with plans to discharge on basal insulin plus metformin with close f/u * Pt started on antibiotics overnight for coverage of HAP * Fasting BSG of 171 mg/dL is above goal. Will continue to titrate basal insulin. Will continue BID dosing for now and attempt to transition to once daily dosing in the near future. * Post prandial BSGs were near goal yesterday. Lunch BSG elevated today at 209 mg/dL. PLAN FOR INPATIENT GLYCEMIC CONTROL: * Hold outpatient oral diabetes medications * Basal insulin - increase * Extra 5 units of Lantus ordered with lunch (total of 15 units this morning) * Change Lantus to dose per scale BID: 10 units for BSG 180 mg/dL or less, 15 units for BSG > 180 mg/dL * Bolus insulin - tighten carb ratio * NovoLog per scale ACHS or Q6hrs while NPO * Goal Range: Low 110 mg/dL - High 140 mg/dL * Correction Factor: 15 mg/dL/unit * Nutritional / Prandial insulin per carb ratio of 1 unit per 5 grams CHO consumed PLAN FOR DISCHARGE: * Lantus SQ once daily (dose to be determined) plus metformin
[2018-12-11] MEDS ORDERED: INSULIN GLARGINE SOLOSTAR 100 UNITS/ML 3 ML PEN SC ONE (12:00)
--- NOTE | 2018-12-11 15:25 | Pharmacy Report ---
Pharmacy Abx Dose Short Note - Date of Service December 11, 2018 - Assessment & Plan Assessment 33 year old F started on vancomycin and zosyn IV overnight for HAP coverage * BC x 2 pending, negative MRSA nasal swab Plan Vancomycin * Patient was given a loading dose of 2250 mg IV, following by 1500 mg ( 16 mg/ kg) IV q8 hours * Goal trough level for pnx : 15 to 20 mcg/mL * Trough level ordered for: 12/12 am, prior to 0600 dose * Given that MRSA nasal swab is negative, it is unlikely that patient has a MRSA pneumonia. If vanco coverage is being used for pulm source only, recommend d/c Zosyn * 3.375g IV q 8h (ext. infusion) for CrCl > 20 ml/min Pharmacy will continue to follow and will adjust dose/frequency as necessary. Thank you.
[2018-12-12] MEDS: PIPERACILLIN/TAZOBACTAM 3.375 GM in DEXTROSE 5% 100 ML IV SCH ×2 (01:27→09:25)
[2018-12-12] MEDS ORDERED: VANCOMYCIN TROUGH ONE (05:30)
[2018-12-12 06:39] LABS: Basophils # (auto) 0.07 K/uL (0-0.2); Basophils % (auto) 0.3 %; Eosinophils # (auto) 0.18 K/uL (0-0.5); Eosinophils % (auto) 0.8 %; Hematocrit (blood only) 43.2 % (37-47); Hemoglobin 14.6 g/dL (12.0-16.0); Immature Granulocytes # (auto) 0.12 K/uL (0.00-0.02); Immature Granulocytes % (auto) 0.5 %; Lymphocytes # (auto) 3.17 K/uL (1.2-3.4); Lymphocytes % (auto) 13.8 %; Mean Corpuscular Hgb Conc 33.8 g/dL (32-36); Mean Corpuscular Volume 89.6 fL (80-100); Mean Platelet Volume 9.6 fL (7.4-10.4); Monocytes % (auto) 6.6 %; Neutrophils # (auto) 17.85 K/uL (1.4-6.5); Platelet Count 436 K/uL (130-400); RDW Coefficient of Variation 14.1 % (11.5-14.5); Red Blood Count 4.82 M/uL (4.2-5.4); White Blood Count 22.89 K/uL (4.8-10.8)
[2018-12-12 06:56] LABS: BUN Creatinine Ratio 14.6 (10-20); Calcium 8.9 mg/dl (8.5-10.1); Creatinine Clr Calc Pharmacy 77.2 ml/min; Est GFR (African American) 67.4; Est GFR (Non-African American) 58.2; Potassium 3.5 mmol/L (3.5-5.1)
[2018-12-12] MEDS: INSULIN ASPART 100 UNITS/ML 3 ML PEN SC SCH ×4 (08:33→20:00)
[2018-12-12] MEDS: INSULIN GLARGINE SOLOSTAR 100 UNITS/ML 3 ML PEN SC SCH ×2 (08:35→17:56)
[2018-12-12] MEDS: ATORVASTATIN 40 MG TAB PO SCH (09:23)
[2018-12-12] MEDS: ASPIRIN 81 MG ECTAB PO SCH (09:23)
--- NOTE | 2018-12-12 11:09 | Hospitalist Progress Note ---
Date of Service December 11, 2018 Assessment & Plan (1) HAP (hospital-acquired pneumonia): Cont Zosyn (2) Leukocytosis: Somewhat improved with antibiotic therapy. (3) Abnormal uterine bleeding: Pelvic US was negative. Beta hCG negative. Follow-up with SOFTWARE QUALITY ANALYST as outpatient next week. (4) CVA (cerebral vascular accident): Cont ASA and Lipitor, followup with Neuro and Heme/Onc in clinic. Zio patch (5) DMII (diabetes mellitus, type 2): New diagnosis, uncontrolled with A1C of 11. Cont basal bolus insulin for goal random glucose <180 or fasting <125. Plan for Lantus/metformin as outpatient with very close PCP followup. (6) Spherocytosis, hereditary: s/p splenectomy at age 5 (7) UTI (urinary tract infection): Completed antibiotic course of Bactrim and is currently asymptomatic. Repeat urinalysis was negative. (8) Migraines: Benadryl IV PRN, Reglan PRN. May be contributing to her fatigue. (9) DVT prophylaxis: Lovenox 40mg PO daily Full Dispo-likely to home in a.m. Radha Cai DO [facility] Hospitalist Subjective Doing well, no acute events overnight. No neurologic deficits. Ambulating and mentating at baseline and tolerating PO. Physical Exam Vital Signs (Past 24 Hours): Last Vital Signs Temp 36.9 C 12/12/18 07:00 Pulse 92 H 12/12/18 07:00 Resp 18 12/12/18 07:00 BP 131/79 12/12/18 07:00 Pulse Ox 94 12/12/18 07:00 CONSTITUTIONAL: WNWD, vitals as above, generally well-appearing EYES: normal conjuctivae, no scleral icterus ENT: MMM RESPIRATORY: clear to auscultation bilaterally, no crackles, rales or wheezes, normal respiratory effort CARDIOVASCULAR: regular rate and rhythm, S1 and 2 heard without murmurs, gallops or rubs, no JVD, no peripheral edema GASTROINTESTINAL: soft, nontender, nondistended MUSCULOSKELETAL: strength 5/5 throughout, head is normocephalic and atraumatic, no focal deficits. SKIN: warm and dry NEUROLOGIC: no facial droop, no dysarthria. CN 2-12 grossly intact, no sensory deficit, normal cognition, normal speech, no tremor PSYCHIATRIC: alert cooperative and oriented to person, place and time. Euthymic mood, makes good eye contact, language grossly intact Results & Data Laboratory Results Short CBC 12/12/18 Range/Units 06:21 WBC 22.89 H (4.8-10.8) K/uL Hgb 14.6 (12.0-16.0) g/dL Hct 43.2 (37-47) % Plt Count 436 H (130-400) K/uL BMP 12/12/18 06:21 Sodium 139 Potassium 3.5 Chloride 109 H Carbon Dioxide 25 BUN 18 Creatinine 1.22 H D Glucose 142 H Calcium 8.9 Medications Administered Current Inpatient Medications Acetaminophen (Tylenol) 650 mg PO Q4H PRN PRN Reason: Pain or Fever Stop: 01/06/19 22:21 Last Admin: 12/09/18 08:17 Dose: 650 mg Documented by: Al Hydrox/Mg Hydrox/Simethicone (Maalox) 15 ml PO Q4H PRN PRN Reason: Dyspepsia Stop: 01/06/19 22:21 Aspirin (Ecotrin Ectab) 81 mg PO [facility] Stop: 01/07/19 08:59 Last Admin: 12/12/18 09:23 Dose: 81 mg Documented by: Atorvastatin Calcium (Lipitor) 40 mg PO [facility] Stop: 01/07/19 08:59 Last Admin: 12/12/18 09:23 Dose: 40 mg Documented by: Dextrose (Dextrose 50%) 25 - 50 ml IV UD PRN; Protocol PRN Reason: Hypoglycemia Protocol Stop: 01/07/19 12:37 Glucagon (Glucagen) 1 mg SQ UD PRN; Protocol PRN Reason: Hypoglycemia Protocol Stop: 01/07/19 12:37 Glucose (Glucose 40%) 15 - 30 gm PO UD PRN; Protocol PRN Reason: Hypoglycemia Protocol Stop: 01/07/19 12:37 Glucose (Dex4 Glucose) 4 - 8 tabs PO UD PRN; Protocol PRN Reason: Hypoglycemia Protocol Stop: 01/07/19 12:37 Piperacillin Sod/Tazobactam (Sod 3.375 gm/ Dextrose) 115 mls @ 28.75 mls/hr IV Q8H [facility]; Protocol Stop: 12/24/18 21:59 Last Admin: 12/12/18 09:25 Dose: 28.8 mls/hr Documented by: Sodium Chloride (Nss 1000ml) 1,000 mls @ 250 mls/hr IV .Q4H [facility] Stop: 12/12/18 18:29 Insulin Aspart (Novolog Flexpen) 0 units SC ACHS [facility] Stop: 01/07/19 16:29 Last Admin: 12/12/18 08:33 Dose: 3 units Documented by: Insulin Glargine (Lantus Solostar Pen) 0 units SC BID KIM; Protocol Stop: 01/10/19 20:59 Last Admin: 12/12/18 08:35 Dose: 10 units Documented by: Miscellaneous (Carbohydrates For Hypoglycemia) 15 - 30 gm PO UD PRN PRN Reason: Hypoglycemia Treatment Stop: 01/07/19 12:37 Miscellaneous Information (Pharmacist Discharge Med Rec Consult) 1 ea N/A UD PRN PRN Reason: Consult Stop: 01/06/19 22:21 Miscellaneous Information (Consult) 1 ea N/A UD PRN PRN Reason: Consult Stop: 01/09/19 19:14 Miscellaneous Information (Consult Glycemic Management Pharmacy) 1 ea N/A UD PRN PRN Reason: . Stop: 01/10/19 08:02 Nitroglycerin (Nitrostat) 0.4 mg SL UD PRN PRN Reason: Chest Pain Stop: 01/06/19 22:21 Ondansetron HCl (Zofran) 4 mg IV Q6H PRN PRN Reason: Nausea Stop: 01/06/19 22:21 (1) CVA (cerebral vascular accident) CVA mechanism: unspecified Qualified Code(s): I63.9 - Cerebral infarction, unspecified
--- NOTE | 2018-12-12 12:22 | Pharmacy Report ---
Pharmacy Glycemic Short Note 2 - Date of Service December 12, 2018 - Glycemic Short BSG Results (Last 24 hours): 12/11/18 12/11/18 12/12/18 16:45 20:15 06:21 Glucose 142 H POC Glucose 162 H 178 H 12/12/18 12/12/18 07:51 11:21 Glucose POC Glucose 135 H 142 H OUTPATIENT ANTIDIABETIC REGIMEN: * New diagnosis * A1c 11% 12/08/18 ASSESSMENT: * 33 yr old female admitted with abnormal uterine bleeding, CVA, and HAP * New diagnosis of T2DM with plans to discharge on basal insulin plus metformin with close f/u * Pt continued on Zosyn for HAP. Vanc discontinued yesterday. * Fasting BSG of 142 mg/dL is at goal. Will continue to titrate basal insulin and work to transition to once daily dosing. * Post prandial BSGs were near goal yesterday after CR tightened, will continue current correction factor/carb ratio. PLAN FOR INPATIENT GLYCEMIC CONTROL: * Hold outpatient oral diabetes medications * Basal insulin - decrease * Lantus 10 units given this morning. * Lantus dose per scale at dinner to begin to transition to once daily dosin units for BSG 180 mg/dL or less, 15 units for BSG > 180 mg/dL * Lantus 20 units ordered for tomorrow am. * Bolus insulin - continue * NovoLog per scale ACHS or Q6hrs while NPO * Goal Range: Low 110 mg/dL - High 140 mg/dL * Correction Factor: 15 mg/dL/unit * Nutritional / Prandial insulin per carb ratio of 1 unit per 5 grams CHO consumed PLAN FOR DISCHARGE: * Lantus SQ once daily (dose to be determined) plus metformin
[2018-12-12] MEDS: SODIUM CHLORIDE 0.9% 1000ML 1,000 ML IV SCH ×3 (13:12→19:49)
[2018-12-12] MEDS: levoFLOXacin 750 MG TAB PO SCH (16:04)
[2018-12-12 18:27] LABS: BUN Creatinine Ratio 11.6 (10-20); Calcium 8.6 mg/dl (8.5-10.1); Creatinine Clr Calc Pharmacy 71.3 ml/min; Est GFR (African American) 61.3; Est GFR (Non-African American) 52.9
[2018-12-12 18:56] LABS: Anti Cardiolipin Ab IgG <14 GPL (< = 14); Anti Cardiolipin Ab IgM <12 MPL (< = 12); Anti-Thrombin III Activity 100 % activity (80-120); B2 Glycoprotein IgA <9 SAU (<=20); B2 Glycoprotein IgG <9 SGU (<=20); B2 Glycoprotein IgM <9 SMU (<=20); Lupus Anticoagulant Negative (Negative); Protein S Functional(Activity) 111 % (60-140)
[2018-12-12] MEDS: POTASSIUM CHLORIDE 20 MEQ TABCR PO SCH (19:50)
--- NOTE | 2018-12-12 21:43 | Hospitalist Progress Note ---
Date of Service December 12, 2018 Assessment & Plan (1) ADAIR (acute kidney injury): Improved after IV hydration overnight. Not at baseline. Repeat labwork as outpatient. (2) HAP (hospital-acquired pneumonia): Levaquin (3) Leukocytosis: Improved (4) Abnormal uterine bleeding: Pelvic US was negative. Beta hCG negative. Follow-up with CORPORATE DEVELOPMENT MANAGER as outpatient next week. (5) CVA (cerebral vascular accident): Cont ASA and Lipitor (6) DMII (diabetes mellitus, type 2): New diagnosis, uncontrolled with A1C of 11. Cont basal bolus insulin for goal random glucose <180 or fasting <125. Plan for Lantus/metformin as outpatient with very close PCP followup. (7) Spherocytosis, hereditary: s/p splenectomy at age 5 (8) UTI (urinary tract infection): Completed antibiotic course of Bactrim and is currently asymptomatic. Repeat urinalysis was negative. (9) Migraines: Benadryl IV PRN, Reglan PRN. May be contributing to her fatigue. (10) DVT prophylaxis: Lovenox 40mg PO daily Full Dispo-likely to home in a. Radha Cai DO [facility] Hospitalist Subjective Doing well, asymptomatic. Tolerating PO, mentating and ambulating at baseline. Physical Exam Vital Signs (Past 24 Hours): Last Vital Signs Temp 37.1 C 12/12/18 15:00 Pulse 91 H 12/12/18 15:00 Resp 20 12/12/18 15:00 BP 138/85 12/12/18 15:00 Pulse Ox 96 12/12/18 15:00 CONSTITUTIONAL: WNWD, vitals as above, generally well-appearing EYES: normal conjuctivae, no scleral icterus ENT: MMM RESPIRATORY: clear to auscultation bilaterally, no crackles, rales or wheezes, normal respiratory effort CARDIOVASCULAR: regular rate and rhythm, S1 and 2 heard without murmurs, gallops or rubs, no JVD, no peripheral edema GASTROINTESTINAL: soft, nontender, nondistended MUSCULOSKELETAL: strength 5/5 throughout, head is normocephalic and atraumatic, no focal deficits. SKIN: warm and dry NEUROLOGIC: no facial droop, no dysarthria. CN 2-12 grossly intact, no sensory deficit, normal cognition, normal speech, no tremor PSYCHIATRIC: alert cooperative and oriented to person, place and time. Euthymic mood, makes good eye contact, language grossly intact Results & Data Laboratory Results Short CBC 12/12/18 Range/Units 06:21 WBC 22.89 H (4.8-10.8) K/uL Hgb 14.6 (12.0-16.0) g/dL Hct 43.2 (37-47) % Plt Count 436 H (130-400) K/uL BMP 12/12/18 12/12/18 06:21 17:43 Sodium 139 141 Potassium 3.5 3.0 L Chloride 109 H 109 H Carbon Dioxide 25 25 BUN 18 15 Creatinine 1.22 H D 1.32 H Glucose 142 H 113 H Calcium 8.9 8.6 Medications Administered Current Inpatient Medications Acetaminophen (Tylenol) 650 mg PO Q4H PRN PRN Reason: Pain or Fever Stop: 01/06/19 22:21 Last Admin: 12/09/18 08:17 Dose: 650 mg Documented by: Al Hydrox/Mg Hydrox/Simethicone (Maalox) 15 ml PO Q4H PRN PRN Reason: Dyspepsia Stop: 01/06/19 22:21 Aspirin (Ecotrin Ectab) 81 mg PO [facility] Stop: 01/07/19 08:59 Last Admin: 12/12/18 09:23 Dose: 81 mg Documented by: Atorvastatin Calcium (Lipitor) 40 mg PO [facility] Stop: 01/07/19 08:59 Last Admin: 12/12/18 09:23 Dose: 40 mg Documented by: Dextrose (Dextrose 50%) 25 - 50 ml IV UD PRN; Protocol PRN Reason: Hypoglycemia Protocol Stop: 01/07/19 12:37 Glucagon (Glucagen) 1 mg SQ UD PRN; Protocol PRN Reason: Hypoglycemia Protocol Stop: 01/07/19 12:37 Glucose (Glucose 40%) 15 - 30 gm PO UD PRN; Protocol PRN Reason: Hypoglycemia Protocol Stop: 01/07/19 12:37 Glucose (Dex4 Glucose) 4 - 8 tabs PO UD PRN; Protocol PRN Reason: Hypoglycemia Protocol Stop: 01/07/19 12:37 Sodium Chloride (Nss 1000ml) 1,000 mls @ 125 mls/hr IV .Q8H [facility] Stop: 01/11/19 18:29 Last Admin: 12/12/18 19:49 Dose: 125 mls/hr Documented by: Insulin Aspart (Novolog Flexpen) 0 units SC ACHS [facility] Stop: 01/07/19 16:29 Last Admin: 12/12/18 20:00 Dose: 1 units Documented by: Insulin Glargine (Lantus Solostar Pen) 20 units SC QAM [facility]; Protocol Stop: 01/12/19 08:59 Levofloxacin (Levaquin) 750 mg PO DAILY@1100 [facility] Stop: 12/19/18 13:59 Last Admin: 12/12/18 16:04 Dose: 750 mg Documented by: Miscellaneous (Carbohydrates For Hypoglycemia) 15 - 30 gm PO UD PRN PRN Reason: Hypoglycemia Treatment Stop: 01/07/19 12:37 Miscellaneous Information (Pharmacist Discharge Med Rec Consult) 1 ea N/A UD PRN PRN Reason: Consult Stop: 01/06/19 22:21 Miscellaneous Information (Consult Glycemic Management Pharmacy) 1 ea N/A UD PRN PRN Reason: . Stop: 01/10/19 08:02 Nitroglycerin (Nitrostat) 0.4 mg SL UD PRN PRN Reason: Chest Pain Stop: 01/06/19 22:21 Ondansetron HCl (Zofran) 4 mg IV Q6H PRN PRN Reason: Nausea Stop: 01/06/19 22:21 Potassium Chloride (Klor-Con M20) 40 meq PO Q4H [facility] Stop: 12/12/18 23:01 Last Admin: 12/12/18 19:50 Dose: 40 meq Documented by: (1) CVA (cerebral vascular accident) CVA mechanism: unspecified Qualified Code(s): I63.9 - Cerebral infarction, unspecified
[2018-12-13] MEDS: POTASSIUM CHLORIDE 20 MEQ TABCR PO SCH (00:06)
[2018-12-13] MEDS: SODIUM CHLORIDE 0.9% 1000ML 1,000 ML IV SCH ×2 (03:40→11:25)
[2018-12-13 06:58] LABS: Creatinine Urine Random 29.1 mg/dl; Total Protein Urine Random 18.4 mg/dl (0-11.9)
[2018-12-13 07:37] LABS: Basophils # (auto) 0.04 K/uL (0-0.2); Basophils % (auto) 0.2 %; Eosinophils % (auto) 0.5 %; Hematocrit (blood only) 41.7 % (37-47); Hemoglobin 14.2 g/dL (12.0-16.0); Immature Granulocytes # (auto) 0.11 K/uL (0.00-0.02); Immature Granulocytes % (auto) 0.5 %; Lymphocytes # (auto) 2.87 K/uL (1.2-3.4); Lymphocytes % (auto) 13.8 %; Mean Corpuscular Hgb Conc 34.1 g/dL (32-36); Mean Corpuscular Volume 90.5 fL (80-100); Mean Platelet Volume 9.4 fL (7.4-10.4); Monocytes # (auto) 1.29 K/uL (0.11-0.59); Monocytes % (auto) 6.2 %; Neutrophils # (auto) 16.45 K/uL (1.4-6.5); Neutrophils % (auto) 78.8 %; Platelet Count 423 K/uL (130-400); RDW Coefficient of Variation 14.1 % (11.5-14.5); RDW Standard Deviation 46.1 fL (36.4-46.3); Red Blood Count 4.61 M/uL (4.2-5.4); White Blood Count 20.86 K/uL (4.8-10.8)
[2018-12-13] MEDS: ASPIRIN 81 MG ECTAB PO SCH (08:23)
[2018-12-13] MEDS: ATORVASTATIN 40 MG TAB PO SCH (08:23)
[2018-12-13] MEDS: INSULIN ASPART 100 UNITS/ML 3 ML PEN SC SCH ×2 (08:27→12:49)
[2018-12-13 08:32] LABS: BUN Creatinine Ratio 10.7 (10-20); Calcium 8.8 mg/dl (8.5-10.1); Creatinine Clr Calc Pharmacy 87.2 ml/min; Est GFR (African American) 78.1; Est GFR (Non-African American) 67.4; Magnesium 1.7 mg/dl (1.8-2.4); Potassium 3.8 mmol/L (3.5-5.1)
[2018-12-13] MEDS ORDERED: INSULIN GLARGINE SOLOSTAR 100 UNITS/ML 3 ML PEN SC SCH (09:00)
[2018-12-13] MEDS: MAGNESIUM SULFATE / D5W 1 GM/100 ML BAG IV SCH ×2 (10:27→11:22)
[2018-12-13] MEDS: levoFLOXacin 750 MG TAB PO SCH (11:23)
--- NOTE | 2018-12-13 11:37 | Pharmacy Report ---
Pharmacist Stroke Counseling - Date of Service December 13, 2018 - Scope: Pharmacy has been consulted to provide medication discharge counseling for this patient admitted with ischemic stroke as per the Pharmacist Discharge Counseling for Stroke Patients Protocol. - Medications on Discharge: Home Medications Medication Instructions Recorded Confirmed sulfamethoxazole-trimethoprim 1 tab PO BID 12/07/18 12/07/18 New Rx's Medication Instructions Recorded aspirin [Ecotrin Low Strength] 81 mg PO QAM #90 tab 12/10/18 atorvastatin 40 mg PO QAM #30 tab 12/10/18 blood sugar diagnostic [OneTouch #100 ea 12/10/18 Verio strips] lancets [OneTouch Delica Lancets] #100 ea 12/10/18 metformin 500 mg PO BID #60 tab 12/10/18 pen needle, diabetic [Pen Needle] #90 ea 12/10/18 insulin glargine [Lantus Solostar 20 units SQ DAILY #15 ml 12/13/18 U-100 Insulin] levofloxacin 750 mg PO DAILY@1100 5 Days #5 tab 12/13/18 - Action: The above medications, specifically ones for stroke treatment/prophylaxis and new Diabetes diagnosis, have been reviewed in detail with the patient prior to discharge. This includes indication, common adverse reactions, drug interactions, and medication administration. Medication counseling has been employed using the teach-back method to ensure understanding. - Outcome: The patient has demonstrated understanding of the medications. Please note, they are aware that the pharmacist will call them within 72 hours post-discharge to confirm that the appropriate medications are being taken and answer any further medication related questions the patient might have at that time. Contact information Individual to be contacted: Patient Phone number: [phone] Best time to call: Monday12/14/18 prior to going back to work on Monday. Additional comments: Reviewed both stroke and diabetes diagnosis, and new medications, use, side effects, etc. Thank you for allowing pharmacy to be involved in the care of this patient. Please call [phone] or [phone] with any additional questions
--- NOTE | 2018-12-13 11:43 | Pharmacy Report ---
Pharmacy Glycemic Short Note 2 - Date of Service December 13, 2018 - Glycemic Short BSG Results (Last 24 hours): 12/12/18 12/12/18 12/12/18 11:21 16:44 17:43 Glucose 113 H POC Glucose 142 H 99 12/12/18 12/13/18 12/13/18 19:59 07:20 07:20 Glucose 142 H POC Glucose 145 H 144 H OUTPATIENT ANTIDIABETIC REGIMEN: * New diagnosis * A1c 11% 12/08/18 ASSESSMENT: * 33 yr old female admitted with abnormal uterine bleeding, UTI, CVA, and HAP * New diagnosis of T2DM with plans to discharge on basal insulin plus metformin with close f/u * Aspirin & atrovastatin for CVA dx * Fasting BSG of 144 mg/dL is at goal. Patient transitioned to once daily dosing, patient would prefer to give at bedtime, so patient was instructed to begin that tomorrow evening. * Reviewed metformin mechanism of action and possible diarrhea side effect and how to prevent that with slow titration of dose and taking with meals. PLAN FOR INPATIENT GLYCEMIC CONTROL: - no changes * Basal insulin * Lantus 20 units SQ daily - given this morning, patient to give HS starting tomorrow night at home * Bolus insulin * NovoLog per scale ACHS or Q6hrs while NPO * Goal Range: Low 110 mg/dL - High 140 mg/dL * Correction Factor: 15 mg/dL/unit * Nutritional / Prandial insulin per carb ratio of 1 unit per 5 grams CHO consumed PLAN FOR DISCHARGE: * Lantus 20 units SQ HS * Metformin 500mg PO BID - titrate up to 1000mg BID * Met with patient and reviewed discharge plan
[2018-12-13] MEDS ORDERED: STROKE PATIENT DISCHARGE STA (11:46)
--- NOTE | 2018-12-17 09:32 | Pharmacy Report ---
Pharmacist Post D/C Phone Note - Phone Note: The patient and/or patient manufacturer representative(s) were unable to be reached for a follow-up phone call within the 72 hour time frame. Discharge counseling pharmacist contact information has already been provided to the patient should questions arise. Thank you for allowing us to be involved in the care of this patient. - Home Medications: New Rx's Medication Instructions Recorded aspirin [Ecotrin Low Strength] 81 mg PO QAM #90 tab 12/10/18 atorvastatin 40 mg PO QAM #30 tab 12/10/18 blood sugar diagnostic [OneTouch #100 ea 12/10/18 Verio strips] lancets [OneTouch Delica Lancets] #100 ea 12/10/18 metformin 500 mg PO BID #60 tab 12/10/18 pen needle, diabetic [Pen Needle] #90 ea 12/10/18 insulin glargine [Lantus Solostar 20 units SQ DAILY #15 ml 12/13/18 U-100 Insulin] levofloxacin 750 mg PO DAILY@1100 5 Days #5 tab 12/13/18
--- NOTE | 2019-01-10 12:40 | Coding Query ---
CODING QUERY FOR UNCONTROLLED DIABETES To promote full compliance with coding requirements relating to patient care, provider participation is requested in all cases of electronic court recorder uncertainty. Please assist us with the question(s) below: Coding Question: The term uncontrolled Diabetes was used throughout the record. To be able to code this diagnosis properly, could you please clarify the diagnosis below: ( ) Uncontrolled Diabetes meaning hypoglycemia (x ) Uncontrolled Diabetes meaning hyperglycemia ( ) Other (please specify) Principal Diagnosis: "that condition established after study, to be chiefly responsible for occasioning the admission of the patient to the hospital for care." Co-Existing Principal Diagnosis: "when two or more diagnoses equally meet the criteria for principal diagnosis as determined by the circumstances of admission, diagnostic work up, and/or therapy provided, and the Alphabetic Index, Tabular List, or another coding guideline does not provide sequencing direction, any one of the diagnoses may be sequenced first." "When the physician has documented what appears to be a current diagnosis in the body of the record, but has not included the diagnosis in the final diagnostic statement, the physician should be asked whether the diagnosis should be added." (Source [facility]oding [facility] 2 QTR90. p3-4) HOWARD
== END 2018-12-13 13:46 | disposition home or self-care (01) | DRG 64 ==
LOC: ED 17:05 → 2S 21:22 → 2W 12-11 15:30